=== PATIENT | female | born 1955 | race Caucasian/White ===

== ENCOUNTER → 2019-10-15 | Outpatient (CLI) | payer SELFPAY | PROVIDERS: Family Provider Family Medicine; Visit Provider Family Medicine | DX: S60.222S Contusion of left hand, sequela (principal); S62.64 Nondisplaced fracture of proximal phalanx of finger; R60.9 Edema, unspecified; S62.002S Unspecified fracture of navicular [scaphoid] bone of left wrist, sequela; X58.XXXS Exposure to other specified factors, sequela | CPT/HCPCS: 73218 ==

== ENCOUNTER → 2019-11-12 16:12 | Outpatient (BNVA) | payer MEDICAID, SELFPAY | PROVIDERS: Family Provider Family Medicine; PCP Family Medicine; Visit Provider Family Medicine | DX: N28.9 Disorder of kidney and ureter, unspecified (principal) | CPT/HCPCS: 80048 ==

== ENCOUNTER → 2019-11-18 16:14 | Outpatient (BNVA) | payer MEDICAID, SELFPAY | PROVIDERS: Family Provider Family Medicine; PCP Family Medicine; Referring Provider Family Medicine; Visit Provider Orthopaedic Surgery | DX: S62.611A Displaced fracture of proximal phalanx of left index finger, initial encounter for closed fracture (principal); X58.XXXA Exposure to other specified factors, initial encounter | CPT/HCPCS: 73130 ==

== ENCOUNTER → 2020-01-21 11:33 | Outpatient (BNVA) | payer MEDICAID, SELFPAY | PROVIDERS: Family Provider Family Medicine; PCP Family Medicine; Referring Provider Licensed Practical Nurse; Visit Provider Psychiatry & Neurology Neurology | DX: M54.17 Radiculopathy, lumbosacral region (principal) | CPT/HCPCS: 95886; 95909 ==

== ENCOUNTER → 2020-01-29 16:00 | Outpatient (BNVA) | payer MEDICAID, SELFPAY | PROVIDERS: Family Provider Family Medicine; PCP Family Medicine; Visit Provider Family Medicine | DX: N39.3 Stress incontinence (female) (male) (principal); R30.0 Dysuria; M54.16 Radiculopathy, lumbar region | CPT/HCPCS: 80053; 81000 ==

== ENCOUNTER → 2020-03-24 11:22 | Outpatient (BNVA) | payer MEDICAID, SELFPAY | PROVIDERS: Family Provider Family Medicine; PCP Family Medicine; Visit Provider Family Medicine | DX: I10 Essential (primary) hypertension (principal); E55.9 Vitamin D deficiency, unspecified; E53.8 Deficiency of other specified B group vitamins; F17.219 Nicotine dependence, cigarettes, with unspecified nicotine-induced disorders; K04.7 Periapical abscess without sinus; R11.0 Nausea; M54.5 Low back pain | CPT/HCPCS: 80053; 80061; 82044; 82306; 82607; 85025 ==

== ENCOUNTER 2020-04-16 08:17 | Outpatient (CLI) | payer MEDICAID, SELFPAY ==
--- NOTE | 2020-04-16 08:26 | IR_ITS ---
WS: [id number] LUMBAR MYELOGRAM HISTORY: Low back pain COMPARISON: 12/14/2018 FLUOROSCOPY TIME: 0.8 minutes. Procedure, risks and complications were explained to the patient. Risks including bleeding, infection , headaches, allergic reaction and seizures. Consent has been obtained. With the patient in prone position the skin over the lumbar region is cleansed with ChloraPrep and an esthetized with lidocaine. 22-gauge spinal needle is inserted into the thecal sac at the appropriate level determined by fluoroscopy. Omnipaque 240; 12 ml is injected slowly under fluoroscopy with no co mplications. Needle bevel is perpendicular to the longitudinal fibers of the dura. Stylet is reinsert ed prior to removal of the needle. Patient tolerated the procedure well. Patient will proceed to CT f or further evaluation. Uncomplicated injection into the thecal sac. There is an abrupt cut off of the contrast at the L4-5 d isc level. This is the level of L4 anterolisthesis by 12.7 mm. Thecal sac is sharply oriented due to the anterolisthesis. Small amount of contrast extends into the RIGHT nerve roots. Mild anterior wedging L2. Severe disc space narrowing at L4-5. L4 anterolisthesis by 12.7 mm on neutral imaging. Increases to 15.5 mm on flexion and 14.8 mm on exte nsion. 5 mm anterolisthesis of L5 with no change during flexion or extension. Heavy calcification within the aorta. IR/[place] myelogram sp lumbar [id number] IMPRESSION: 1. Uncomplicated lumbar myelogram. 2. Grade 2 anterolisthesis of L4 with mild instability during flexion and exte nsion. 3. Severe disc space narrowing at L4-5. 4. Remote appearing L2 compression fracture by 10%. 5. Contrast column is abruptly terminated at the L4-5 disc level due to the an terolisthesis and stenosis.
--- NOTE | 2020-04-16 08:26 | CT_ITS ---
WS: [id number] CT MYELOGRAM LUMBAR SPINE HISTORY: Low back pain TECHNIQUE: Contiguous 2.5 mm axial imaging performed from T12 through the mid sacral level. Bone and soft tissue windows reviewed. Sagittal and coronal reformats are submitted and reviewed. DLP: 1467.[address] scans at [facility] use at least one of these dose optimization techniques: automat ed exposure control; mA and/or kV adjustment per patient size (includes targeted exams where dose is matched to clinical indication); or iterative reconstruction. COMPARISON: None available. Good distention of the thecal sac with contrast. L2 compression fracture by 15% without retropulsion. L4 anterolisthesis by 12 mm with severe disc space narrowing and desiccation at L4-5 and moderate at L5-S1. L5 anterolisthesis by 4 mm. L1-L2: Mild annular disc bulging. No stenosis. L2-L3: Mild annular disc bulging with slight effacement of the ventral thecal sac. No stenosis. L3-L4: Moderate annular disc bulging and osteophytic ridging. Ligamentum flavum hypertrophy and facet arthritis. Very mild central and subarticular recess stenosis. No significant foraminal stenosis. L4-L5: Severe central canal stenosis. There is unroofing of the disc and posterior displacement of th e thecal sac with the contrast column being incompletely obliterated. Subarticular recess, lateral re cess and bilateral foraminal stenosis is severe. L5-S1: Central disc broad-based bulging. Mild central and subarticular recess and foraminal stenosis. Moderate calcification within the abdominal aorta. No aneurysm. CT/CT lumbar spine w con [id number] IMPRESSION: 1. Grade 2 anterolisthesis of L4 without pars defects. 2. Severe central, subarticular lateral recess and foraminal stenosis at L4-5 due to combination of the anterolisthesis and facet arthritis. 3. Mild central, subarticular recess and foraminal stenosis at L5-S1. 4. Severe disc desiccation at L4-5 and moderate at L5-S1. 5. L5 anterolisthesis by 4 mm. 6. Mild central and subarticular recess stenosis at L3-4. 7. Remote L2 compression fracture, 15%.
[2020-04-16] MEDS: iohexol 240 mg/mL 50 mL Btl INTRATHECA (09:53)
== END 2020-04-16 08:18 | disposition home or self-care (01) ==
PROVIDERS: Family Provider Family Medicine; PCP Family Medicine; Visit Provider Licensed Practical Nurse
DX: Z98.1 Arthrodesis status (principal); M48.56XA Collapsed vertebra, not elsewhere classified, lumbar region, initial encounter for fracture; M48.061 Spinal stenosis, lumbar region without neurogenic claudication
CPT/HCPCS: 62304; 72120; 72132; Q9966

== ENCOUNTER 2020-04-27 15:08 | Outpatient (CLI) | payer MEDICAID, SELFPAY ==
--- NOTE | 2020-04-27 15:30 | CT_ITS ---
WS: [id number] CT cervical spine. Additional two-dimensional coronal and sagittal reconstruction was performed. 04/27 Clinical Data: HX Fusion/fixation Comparison: Cervical spine, 08/23/2018 DLP: 1183.[address] scans at [facility] use at least one of these dose optimization techniques: automat ed exposure control; mA and/or kV adjustment per patient size (includes targeted exams where dose is matched to clinical indication); or iterative reconstruction. Findings: There is osteoarthritic change of the vertebral bodies C4-C7. There is a 0.3 cm subluxation of C4 on C5. There is degenerative disc narrowing at C4-C5, C5-C6 and C6-C7. No compression fractures are seen . The odontoid is normal. There is no prevertebral soft tissue swelling. There is calcification in th e pino of the carotid arteries of the neck. C2-C3: No disc bulge, canal stenosis or foraminal stenosis is seen. There is mild posterior osteophyt e spurring. C3-C4: No disc bulge, canal stenosis or foraminal stenosis is seen. Facet joint arthritis is noted. C4-C5: There is narrowing of the spinal canal because of the subluxation of C4 on C5. There is ligame ntum flavum calcification. Facet joint arthritis is moderate C5-C6: There is posterior osteophyte impingement on the spinal canal with mild stenosis with the bila teral facet joint arthritis. C6-C7: There is posterior osteophyte narrowing which is minimal. There is bilateral facet joint arthr itis. C7-T1: No disc bulge, canal stenosis or foraminal stenosis is seen. CT/CT cervical spine w con [id number] Impression: 1. Osteoarthritic change of the lower cervical vertebral bodies from C4 through C7. 2. Degenerative disc narrowing from C4-C5 through C6-C7. 3. Multilevel posterior osteophyte formation along with facet joint arthritis. 4. 0.3 subluxation of C4 on C5 unchanged.
[2020-04-27] MEDS: iodixanol 320 mg/mL 100mL Btl IV (15:44)
== END 2020-04-27 15:09 | disposition home or self-care (01) ==
PROVIDERS: Family Provider Family Medicine; PCP Family Medicine; Visit Provider Licensed Practical Nurse
DX: Z98.1 Arthrodesis status (principal); M25.78 Osteophyte, vertebrae; M43.5X2 Other recurrent vertebral dislocation, cervical region
CPT/HCPCS: 72126; Q9967

== ENCOUNTER → 2020-05-14 12:43 | Outpatient (BNVA) | payer MEDICAID, SELFPAY | PROVIDERS: Family Provider Family Medicine; PCP Family Medicine; Referring Provider Licensed Practical Nurse; Visit Provider Anesthesiology Pain Medicine | DX: M51.17 Intervertebral disc disorders with radiculopathy, lumbosacral region (principal); M43.16 Spondylolisthesis, lumbar region; M48.062 Spinal stenosis, lumbar region with neurogenic claudication; Z98.890 Other specified postprocedural states; Z79.891 Long term (current) use of opiate analgesic | CPT/HCPCS: 99205 ==

== ENCOUNTER → 2020-05-19 14:22 | Outpatient (BNVA) | payer MEDICAID, SELFPAY | PROVIDERS: Family Provider Family Medicine; PCP Family Medicine; Visit Provider Anesthesiology Pain Medicine | DX: M54.16 Radiculopathy, lumbar region (principal); M48.062 Spinal stenosis, lumbar region with neurogenic claudication; F17.210 Nicotine dependence, cigarettes, uncomplicated | CPT/HCPCS: 64483; 64484; J1040; J3490 ==

== ENCOUNTER → 2020-06-02 12:58 | Outpatient (BNVA) | payer MEDICAID, SELFPAY | PROVIDERS: Family Provider Family Medicine; PCP Family Medicine; Visit Provider Anesthesiology Pain Medicine | DX: M54.16 Radiculopathy, lumbar region (principal); M48.062 Spinal stenosis, lumbar region with neurogenic claudication; M54.9 Dorsalgia, unspecified; F17.210 Nicotine dependence, cigarettes, uncomplicated; Z79.891 Long term (current) use of opiate analgesic | CPT/HCPCS: 64483; 64484; J1040; J3490 ==

== ENCOUNTER → 2020-06-15 10:23 | Outpatient (BNVA) | payer MEDICAID, SELFPAY | PROVIDERS: Family Provider Family Medicine; PCP Family Medicine; Visit Provider Anesthesiology Pain Medicine | DX: M43.16 Spondylolisthesis, lumbar region (principal); M48.062 Spinal stenosis, lumbar region with neurogenic claudication; M51.17 Intervertebral disc disorders with radiculopathy, lumbosacral region; M79.18 Myalgia, other site; F17.210 Nicotine dependence, cigarettes, uncomplicated; M54.2 Cervicalgia; Z98.890 Other specified postprocedural states; Z79.891 Long term (current) use of opiate analgesic | CPT/HCPCS: 20553; 99213 ==

== ENCOUNTER 2020-06-24 19:35 | Emergency (ER) | payer MEDICARE, MEDICAID, SELFPAY ==
[2020-06-24 20:18] VITALS: BP 149/69; PULSE 65; RESP 18; TEMP 36.7; O2SAT 93; BMI 21.2
--- NOTE | 2020-06-24 20:28 | XR_ITS ---
WS: [id number] Right knee, 3 views, 06/24/2020 Clinical Data: fall Comparison: None. Findings: No fractures or dislocations are seen. The joint spaces are narrow. There is cartilage calcification in the medial and lateral joint spaces. The patella is intact. The soft tissues are unremarkable. XR/XR knee RT 3V* [id number] Impression: 1. Negative for fracture or dislocation. 2. Medial and lateral joint space cartilage calcification.
--- NOTE | 2020-06-24 20:28 | CTR_ITS ---
PROCEDURE INFORMATION: Exam: CT Head Without Contrast Exam date and time: 06/24/2020 8:29 PM Age: 64 years old Clinical indication: Injury or trauma; Fall; Prior surgery; Surgery type: Tmj TECHNIQUE: Imaging protocol: Computed tomography of the head without contrast. Radiation optimization: All CT scans at this facility use at least one of these dose optimization techniques: automated exposure control; mA and/or kV adjustment per patient size (includes targeted exams where dose is matched to clinical indication); or iterative reconstruction. COMPARISON: No relevant prior studies available. RADIATION DOSE METRICS: Total DLP (mGy-cm): 864.26 FINDINGS: Brain: Small chronic cortical infarcts in the bilateral parietal vertices. Mild generalized sulcal widening and ventricular enlargement are age related changes due to white matter volume loss. Localized microangiopathy versus chronic infarct in the left frontoparietal barrios radiata. Ventricles: Mild age related enlargement. Bones/joints: Chronic degenerative changes in both temporomandibular joints. Sinuses: Trace mucosal thickening in the paranasal sinuses. Mastoid air cells: Visualized mastoid air cells are well aerated. Soft tissues: Unremarkable. CT/CT head wo con* [id number] IMPRESSION: 1. No acute intracranial findings. 2. Bilateral small chronic cortical white matter infarcts 3. Sulcal widening Radiation Dose CTDIVOL = (mGy): DLP = 864.26 (mGy-cm)
--- NOTE | 2020-06-24 20:28 | XR_ITS ---
WS: [id number] Right wrist, 3 views, 06/24/2020 Clinical Data: fall Comparison: None. Findings: There is a comminuted impacted slightly dorsally displaced fracture of the distal right radius. The d istal ulna remains intact. No carpal fractures are seen. There is soft tissue swelling about the dist al right radius. XR/XR wrist RT min 3V* [id number] Impression: Fracture distal right radius.
--- NOTE | 2020-06-24 21:15 | W.ED.FALL ---
HPI - Fall General: Chief Complaint: Fall Stated Complaint: fall/right side Time Seen by Provider: 06/24/20 21:03 History of Present Illness: HPI Narrative: 64-year-old female patient presents to the emergency department with complaints of right wrist, right knee pain status post fall she experienced earlier today. She reports fell at the [employer]. She reports history of chronic back pain with difficulty with balance that is chronic. She reports lost her balance today which caused a fall, she reports fell back and hit her head. She did not lose consciousness, she denies nausea vomiting. She reports headache with numbness to her head. She reports difficulty walking due to right knee pain. Her spouse reports she has utilized wheelchair at home due to right knee pain, normally ambulatory. She reports pain to the right wrist with swelling, limited mobility due to pain. Associated symptoms-after fall: Reports neck pain; Denies abdominal pain, chest pain or headache(s) Review of Systems General: Reports: 10 or more systems reviewed and unremarkable except in HPI and below Const: Denies: fever(s), chills or diaphoresis Eyes: Denies: blurry vision or eye redness ENMT: Denies: throat pain, dental pain or disequilibrium Card: Denies: chest pain, palpitations or irregular heart rhythm Resp: Denies: dyspnea, productive cough, non-productive cough or wheezing GI: Denies: abdominal pain, nausea or vomiting : Denies: difficulty voiding or dysuria Musc: Reports: neck pain and joint pain (right wrist, right knee); Denies: back pain Skin/Breast: Denies: rash or pruritus Neuro: Denies: headache(s), weakness in extremities or behavioral changes Stanley/Lymph: Denies: easy bruising PFSH ED PFSH: Medical History (Updated 06/24/20 @ 23:17 by RIKA Ambriz) Chronic nausea COPD (chronic obstructive pulmonary disease) Essential hypertension GERD (gastroesophageal reflux disease) History of TMJ disorder Left sided surgery Intervertebral disc disorder with radiculopathy of lumbosacral region Joint instability Spinal stenosis, lumbar region with neurogenic claudication Spondylolisthesis of lumbar region Surgical History History of cervical spinal surgery 1996 C5-C6 fusion [place], [place] History of hysterectomy History of mitral valve replacement with bioprosthetic valve History of open heart surgery Open heart surgery with valve replacement, performed in [place], [place] by Dr. Taylor, 2015 History of tonsillectomy History of tubal ligation Family History Other No pertinent family history Social History Smoking and tobacco status: current every day smoker cigarettes Packs smoked per day: 0.5 Alcohol intake: current Household members: family Marital status: Current occupational status: disabled History of recent travel: No Physical Exam Const: COMMON NORMALS: no acute distress, patient oriented x3 and alert GENERAL APPEARANCE: cooperative, comfortable and well hydrated NUTRITIONAL APPEARANCE: thin ORIENTATION/CONSCIOUSNESS: Yes awake, Yes oriented to person and Yes oriented to place HENMT: COMMON NORMALS: normocephalic, Normal external nose present and moist oral mucous membranes HEAD & SCALP: normocephalic NOSE: Normal external nose present Eye: COMMON NORMALS: Equal, round and reactive pupils present and EOMs intact bilaterally GENERAL EYE: appearance normal, both eyes and all related structures PUPIL: Yes Equal, round and reactive pupils present Neck/C-Spine: COMMON NORMALS: full ROM and no lymphadenopathy GENERAL: Yes normal visual inspection and Yes trachea midline CERVICAL SPINE: Yes pain with cervical ROM, Yes Cervical spine tenderness and Yes Paracervical muscle tenderness Lymph: LYMPHATIC: no lymphadenopathy noted Chest: COMMONS NORMALS: normal inspection of the chest Resp: COMMON NORMALS: normal respiratory effort and clear to auscultation bilaterally AUSCULTATION: clear to auscultation bilaterally Cardio: COMMON NORMALS: regular rhythm, S1 normal heart sound present, S2 normal heart sound present and Peripheral pulses 2+ throughout RHYTHM: regular rhythm HEART SOUNDS: S1 normal heart sound present and S2 normal heart sound present PERIPHERAL PULSES: Peripheral pulses 2+ throughout GI: COMMON NORMALS: Soft to palpation and non-tender INSPECTION: Yes normal to inspection PALPATION: Yes Soft to palpation : COMMON NORMALS: Yes no CVA tenderness BLADDER/KIDNEY EXAM: Yes no CVA tenderness Back/Pelvis: COMMON NORMALS: no CVA tenderness, thoracic and lumbar spine normal to inspection and thoraco-lumbar ROM normal PELVIS: Yes buttocks normal SACRUM: no ecchymosis and no erythema Extremity: COMMON NORMALS: normal to inspection and capillary refill normal GENERAL: Yes normal exam except as noted RIGHT UPPER EXTREMITY: Yes wrist (right wrist - deformity noted c/w fracture) Right wrist: Yes inspection (ecchymosis present) and Yes ROM (limited due to pain) RIGHT LOWER EXTREMITY: Yes knee joint (swelling with ecchymosis ) Right knee: Yes ROM (limited due to pain) Neuro: COMMON NORMALS: patient oriented x3 and no focal motor deficits SENSORIUM/ORIENTATION: Yes alert, Yes oriented to person and Yes oriented to place CRANIAL NERVES: Yes CN normal except as noted SPEECH: speech normal GAIT: Yes Unable to assess gait (due to pain) Psych: COMMON NORMALS: mental status grossly normal, Normal thought process present and cooperative ACTIVITY/MOTOR BEHAVIOR: Yes appropriate eye contact THOUGHT PROCESS: Normal thought process present Skin: COMMON NORMALS: no rashes or lesions noted and turgor normal GENERAL SKIN EXAM: no rashes or lesions noted and turgor normal Course ED course: 64-year-old female patient presents to the emergency department with complaints of right wrist pain right knee pain and neck pain status post fall she sustained earlier today. CT scan of the head did not reveal acute disease/injury. CT scan of the cervical spine did not reveal acute fracture. X-ray of the right wrist revealed radial fracture questionable scaphoid fracture. X-rays were reviewed with Dr. Sosa. Right upper extremity sugar tong splint was applied, distal circulation intact post application. Right knee CT negative for acute fracture, questioned tibial plateau fracture as patient could not stand without pain. Results were discussed with the patient and her spouse. Questions were answered, plan of care discussed. They agree for follow-up with orthopedic surgery. Vital Signs: Vital signs: Vital Signs Temperature 98.0 F 06/24/20 20:18 Pulse Rate 66 06/24/20 22:58 Respiratory Rate 14 06/24/20 22:58 Blood Pressure 173/69 06/24/20 22:58 Pulse Oximetry 97 06/24/20 22:58 MDM - Fall Imaging Data^: CT Head: Radiologist's impression: [facility] [address] [facility] [place] [address] CT Scan Report Signed Patient: Felipa Winslow #: [id number] : 5Acct#:[id number] Age/Sex: 64 / FADM Date: 06/24/20 Loc: ERRoom/Bed: Attending Dr: Ordering Provider/Ordering MD: Phillip Sosa MD Date of Service: 06/24/20 Procedure(s): CT head wo con* [id number] Accession Number(s): [id number] Report Number: [id number] PROCEDURE INFORMATION: Exam: CT Head Without Contrast Exam date and time: 06/24/2020 8:29 PM Age: 64 years old Clinical indication: Injury or trauma; Fall; Prior surgery; Surgery type: Tmj TECHNIQUE: Imaging protocol: Computed tomography of the head without contrast. Radiation optimization: All CT scans at this facility use at least one of these dose optimization techniques: automated exposure control; mA and/or kV adjustment per patient size (includes targeted exams where dose is matched to clinical indication); or iterative reconstruction. COMPARISON: No relevant prior studies available. RADIATION DOSE METRICS: Total DLP (mGy-cm): 864.26 FINDINGS: Brain: Small chronic cortical infarcts in the bilateral parietal vertices. Mild generalized sulcal widening and ventricular enlargement are age related changes due to white matter volume loss. Localized microangiopathy versus chronic infarct in the left frontoparietal barrios radiata. Ventricles: Mild age related enlargement. Bones/joints: Chronic degenerative changes in both temporomandibular joints. Sinuses: Trace mucosal thickening in the paranasal sinuses. Mastoid air cells: Visualized mastoid air cells are well aerated. Soft tissues: Unremarkable. CT/CT head wo con* [id number] IMPRESSION: 1. No acute intracranial findings. 2. Bilateral small chronic cortical white matter infarcts 3. Sulcal widening Radiation Dose CTDIVOL = (mGy): DLP = 864.26 (mGy-cm) Dictated By:Romeo Ayala MD Signed By:Romeo Ayala MD Other CT: Radiologist's impression: [place] [address] CT Scan Report Signed Patient: Felipa Winslow Unit #: [id number] : 1955 Age/Sex: 64 / F ADM Date: 06/24/20 Loc: ER Room/Bed: Attending Dr: Ordering Provider/Ordering MD: Jolynn Dai Date of Service: 06/24/20 Procedure(s): CT cervical spin wo con* [id number] Accession Number(s): [id number] Report Number: [id number] PROCEDURE INFORMATION: Exam: CT Cervical Spine Without Contrast Exam date and time: 06/24/2020 9:19 PM Age: 64 years old Clinical indication: Injury or trauma; Fall; Initial encounter; Blunt trauma; Additional info: Cervical spine pain S/P fall - midline TECHNIQUE: Imaging protocol: Computed tomography images of the cervical spine without contrast. Radiation optimization: All CT scans at this facility use at least one of these dose optimization techniques: automated exposure control; mA and/or kV adjustment per patient size (includes targeted exams where dose is matched to clinical indication); or iterative reconstruction. COMPARISON: CT cervical spine w con [id number] 04/27/2020 3:38 PM RADIATION DOSE METRICS: Total DLP (mGy-cm): 373.79 FINDINGS: Vertebrae: Multiple chronic degenerative changes are again noted including numerous disc spur complexes as well as grade 1 subluxation at C4-C5. The central canal is mildly stenotic at the C2-C3 level. Discs/Spinal canal/Neural foramina: See Vertebrae finding. Prevertebral Space: Since April 2020 overall there has been no significant change. There is no fracture or prevertebral swelling. Soft tissues: Unremarkable. Dental: The patient is nearly edentulous. Lungs: Scarring in the lung apices. CT/CT cervical spin wo con* [id number] IMPRESSION: 1. No acute cervical spine findings. 2. Extensive chronic degenerative changes including grade 1 subluxation at C4-C5 . No high-grade stenosis Radiation Dose CTDIVOL = (mGy): DLP = 373.79 (mGy-cm) Dictated By: Romeo Ayala MD Signed By: Romeo Ayala MD Signed Date/Time: 06/24/202143 DD/ 42 Discharge Plan Discharge Patient Disposition: Home Clinical Impression: Fracture of radius Qualifiers: Encounter type: initial encounter Radius location: head Fracture type: closed Fracture alignment: nondisplaced Laterality: right Qualified Code(s): S52.124A - Nondisplaced fracture of head of right radius, initial encounter for closed fracture Fall Qualifiers: Encounter type: initial encounter Qualified Code(s): W19.XXXA - Unspecified fall, initial encounter Contusion of knee Qualifiers: Encounter type: initial encounter Laterality: right Qualified Code(s): S80.01XA - Contusion of right knee, initial encounter Condition: Stable Prescriptions: New hydrocodone-acetaminophen 5-325 mg tablet 1 tab PO Q4H PRN (Reason: pain) Qty: 14 RF: 0 No Action metoprolol tartrate 50 mg tablet 50 mg PO BID Qty: 60 RF: 6 azelastine 137 mcg (0.1 %) aerosol,spray 2 spray INTRANASAL BID RF: 0 acetaminophen 500 mg tablet 500 - 1,000 mg PO TID PRN (Reason: Pain) RF: 0 melatonin 5 mg capsule 5 mg PO BEDTIME PRN (Reason: Sleep) RF: 0 gabapentin 600 mg tablet 600 mg PO TID Qty: 90 RF: 0 tramadol 50 mg tablet 50 mg PO TID PRN (Reason: pain) Qty: 90 RF: 0 cetirizine [Zyrtec] 10 mg tablet 10 mg PO DAILY Qty: 30 RF: 0 cyanocobalamin (vitamin B-12) 1,000 mcg/mL solution 1,000 mcg IM .ONCE MONTHLY 7 Days Qty: 1 RF: 5 fluticasone propionate [Flonase Allergy Relief] 50 mcg/actuation spray,suspension 1 spray INTRANASAL DAILY Qty: 16 RF: 4 atorvastatin 20 mg tablet 20 mg PO DAILY Qty: 6 RF: 0 Latuda 40 mg tablet 40 mg PO QDAY Qty: 30 RF: 0 albuterol sulfate [ProAir HFA] 90 mcg/actuation HFA aerosol inhaler 2 puff INHALATION BID PRN (Reason: shortness of breath or wheezing) Qty: 18 RF: 3 cyclobenzaprine 10 mg tablet 10 mg PO Q8H PRN (Reason: muscle spasm) Qty: 90 RF: 2 promethazine 25 mg tablet 25 mg PO DAILY PRN (Reason: nausea and vomiting) Qty: 30 RF: 2 citalopram 20 mg tablet 20 mg PO DAILY RF: 0 pantoprazole 40 mg tablet,delayed release (DR/EC) 40 mg PO DAILY RF: 0 montelukast 10 mg tablet 10 mg PO DAILY RF: 0 buspirone 15 mg tablet 15 mg PO DAILY RF: 0 Discharge Orders: Discharge Order (Routine); Ordered 06/24/20 Ordered By: Jolynn Dai Referrals: Debra Monet DO [Primary Care Provider] - Discharge Diet: Advance as tolerated Discharge Activity: Limit activity as instructed Patient Instructions: Wrist Fracture in Adults (ED), Splint Care (ED), Knee Pain (ED), Fall Prevention (ED) Activity Restrictions/Additional Instructions: Follow-up with Dr. Gallagher, orthopedic surgeon for fracture care Keep the splint on until removed by Dr. Gallagher, you may loosen the Santiago wrap if needed if becomes too tight Keep the right upper extremity elevated as this will help decrease swelling and pain Take hydrocodone only as needed, medication can be addictive Coding Level of Care Code ED Cooker Operator for [facility] Fwd Exam Comprehensive
[2020-06-24 21:48] VITALS: BP 150/74; PULSE 67; RESP 14; O2SAT 98
[2020-06-24] MEDS: acetaminophen 325 mg Tablet 650 MG PO (21:48)
[2020-06-24] MEDS: HYDROcodone-acetaminophen 5-325 mg Tablet 1 TAB PO (21:55)
--- NOTE | 2020-06-24 22:00 | CTR_ITS ---
PROCEDURE INFORMATION: Exam: CT Right Lower Extremity Without Contrast, Knee Exam date and time: 06/24/2020 10:04 PM Age: 64 years old Clinical indication: Injury or trauma; Fall; Initial encounter; Blunt trauma; Knee; Right; Additional info: Right knee - R/O tp FX S/P fall, cant bear weight TECHNIQUE: Imaging protocol: CT of the Right lower extremity without contrast was performed. Exam focused on the knee. Radiation optimization: All CT scans at this facility use at least one of these dose optimization techniques: automated exposure control; mA and/or kV adjustment per patient size (includes targeted exams where dose is matched to clinical indication); or iterative reconstruction. COMPARISON: CR XR knee RT 3V* [id number] 06/24/2020 9:09 PM RADIATION DOSE METRICS: Total DLP (mGy-cm): 104.75 FINDINGS: Bones/joints: Chondrocalcinosis in the medial and lateral compartments. No fracture or joint effusion. Degenerative subchondral cysts are noted in the lateral tibial plateau. Soft tissues: Normal. CT/CT knee RT wo con* [id number] IMPRESSION: 1. No acute findings. 2. Chondrocalcinosis and chronic degenerative changes, especially in the lateral tibial plateau Radiation Dose CTDIVOL = (mGy): DLP = 104.75 (mGy-cm)
[2020-06-24 22:42] VITALS: BP 191/91; PULSE 65; RESP 14; O2SAT 96
[2020-06-24 22:58] VITALS: BP 173/69; PULSE 66; RESP 14; O2SAT 97
[2020-06-24 23:55] VITALS: BP 118/66; PULSE 65; RESP 18; TEMP 37.2; O2SAT 97
--- NOTE | 2020-06-25 09:31 | DCPLANNER ---
poker room manager had message to schedule a follow up appointment for patient with ortho. poker room manager spoke with Pat at ortho, gave clinic patients information. poker room manager was told that patients information would be printed and reviewed. Clinic will call patient with appointment information.
--- NOTE | 2020-06-26 07:34 | DCPLANNER ---
Patient has a follow appointment scheduled for Monday, July 01, 2020 at 10:[address] Rome. Clinic will call patient with appointment information.
--- NOTE | 2020-07-13 08:35 | DCPLANNER ---
Patient had follow up appointment scheduled for 07.01.20 with ortho - patient did attend appointment.
== END 2020-06-25 00:02 | disposition home or self-care (01) ==
PROVIDERS: Emergency Provider Nurse Practitioner Family; PCP Family Medicine
DX: S52.124A Nondisplaced fracture of head of right radius, initial encounter for closed fracture (principal); S80.01XA Contusion of right knee, initial encounter; F17.210 Nicotine dependence, cigarettes, uncomplicated; J44.9 Chronic obstructive pulmonary disease, unspecified; I10 Essential (primary) hypertension; W19.XXXA Unspecified fall, initial encounter
CPT/HCPCS: 12345; 29125; 70450; 72125; 73110; 73562; 73700; 99281; 99283

== ENCOUNTER → 2020-07-01 11:38 | Outpatient (BNVA) | payer MEDICARE, MEDICAID, SELFPAY | PROVIDERS: PCP Family Medicine; Referring Provider Emergency Medicine; Visit Provider Specialist | DX: S52.124A Nondisplaced fracture of head of right radius, initial encounter for closed fracture (principal); Z20.828 Contact with and (suspected) exposure to other viral communicable diseases; X58.XXXA Exposure to other specified factors, initial encounter | CPT/HCPCS: 73110; 87635 ==

== ENCOUNTER 2020-07-03 13:13 | Day surgery (SDC) | payer MEDICARE, MEDICAID, SELFPAY ==
[2020-07-02 13:52] VITALS: BMI 22.1
--- NOTE | 2020-07-03 | SCC_ITS ---
Procedure Done: Open reduction internal fixation right distal radius displaced fracture utilizing the Zuleima short narrow distal radius plate 66.1 seconds of fluoroscopic guidance, for a cumulative dose of 0.37 mGy, was provided to Dr. Rome by the radiology department. C-arm images of the RIGHT wrist were saved for the patient's permanent record. THOMAS
--- NOTE | 2020-07-03 | XR_ITS ---
WS: [id number] INTRAOPERATIVE TECHNIQUE: 3 Spot fluoroscopic images for intraoperative purposes. FLUOROSCOPY TIME: 66.1 seconds CLINICAL INFORMATION: OR PICS COMPARISON: None. FINDINGS: Intraoperative changes plate and screw fixation distal radius. Normal alignment. XR/XR wrist RT 2V [id number] IMPRESSION: Images obtained for intraoperative purposes.
[2020-07-03 13:40] VITALS: BP 136/67; PULSE 62; RESP 18; TEMP 36.9; O2SAT 97
[2020-07-03] MEDS: CELEcoxib 200 mg Capsule 400 MG PO (13:56)
[2020-07-03] MEDS: sodium chloride 0.9% 1,000 ML 30 ML IV (13:56)
[2020-07-03 13:59] LABS: Basophils # 0.1 10^3/uL (0.0-0.1); Basophils % 0.8 %; Eosinophils # 0.1 10^3/uL (0.0-0.8); Eosinophils % 0.9 %; Hematocrit 36.8 % (37.0-47.0); Hemoglobin 11.6 g/dL (11.5-15.3); Lymphocytes # 1.8 10^3/uL (0.8-4.8); Lymphocytes % 18.7 %; Mean Corpuscular HGB Conc 31.5 g/dL (30.0-36.0); Mean Corpuscular Hemoglobin 31.3 pg (28.0-34.0); Mean Corpuscular Volume 99.2 fL (81-99); Mean Platelet Volume 9.4 fL (7.4-10.4); Monocytes # 0.7 10^3/uL (0.2-0.9); Neutrophils # 6.95 10^3/uL (1.8-7.7); Neutrophils % 72.2 %; Nucleated Red Blood Cells % 0 %; Platelet Count 356 10^3/cmm (130-400); Red Blood Count 3.71 10^6/uL (4.1-5.3); Red Cell Distribution Width 14.2 % (12.1-15.1); White Blood Count 9.6 10^3/uL (4.0-10.0)
--- NOTE | 2020-07-03 14:07 | P.ANESASSM_ITS ---
Pre-Anesthetic Assessment Pre-Anesthetic Assessment: Height/Weight: Height 1.6 m Weight 56.699 kg Temp Pulse Resp BP Pulse Ox 98.4 F 62 18 136/67 97 07/03/20 13:40 07/03/20 13:40 07/03/20 13:40 07/03/20 13:40 07/03/20 13:40 Preop Diagnosis: Right distal radius fracture intra-articular Proposed Procedure: Operation Date: 07/03/20 15:25 Proposed Procedures p ORIF Wrist 18720 S52.501A(Right) - Lidia Rome MD Familial anesthetic complications: None Was Beta Isa taken within 24 hours: N/A Last intake: Intake Last Liquid Date 07/02/20 Last Liquid Time 18:30 Last Solid Date 07/02/20 Last Solid Time 18:30 Social: Social History: Tobacco Exam: Pre-Anes Outpt Exam: alert, oriented x 3, clear to auscultation bilaterally and regular rate & rhythm Airway: Cervical ROM: WNL (C5-6 surgery) MP: 2 Dentition: Full Pulmonary: Pulmonary: COPD CV/HEM: CV/HEM: HTN Comments: heart valve replacement (mitral valve) GI: GI: GERD Metabolic: Metabolic: Hyperlipidemia Neuropsych: Neuropsych: 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) Anesthetic Plan: ASA status: 3 Anesthesia: General and Regional (specify below) Risk of > 500 ml blood loss (7ml/kg in children): No Meds/Allergies Current Medications: Current Medications Generic Name Dose Route Start Last Admin Trade Name Freq PRN Reason Stop Dose Admin Sodium Chloride 1,000 mls @ 30 ml s/hr 07/03/20 13:30 07/03/20 13:56 Sodium Chloride 0.9% IV 07/04/20 13:29 30 mls/hr .Q24H CANDICE Administration PFSH Anesthesia PFSH: Medical History (Updated 07/03/20 @ 00:07 by ) Chronic nausea COPD (chronic obstructive pulmonary disease) Essential hypertension GERD (gastroesophageal reflux disease) History of TMJ disorder Left sided surgery Intervertebral disc disorder with radiculopathy of lumbosacral region Joint instability Spinal stenosis, lumbar region with neurogenic claudication Spondylolisthesis of lumbar region Surgical History History of cervical spinal surgery 1996 C5-C6 fusion [place], [place] History of hysterectomy History of mitral valve replacement with bioprosthetic valve History of open heart surgery Open heart surgery with valve replacement, performed in [place], [place] by Dr. Harriet burns, 2015 History of tonsillectomy History of tubal ligation Family History Other No pertinent family history Social History Smoking and tobacco status: current every day smoker cigarettes Packs smoked per day: 0.5 Alcohol intake: current Household members: family Marital status: Current occupational status: disabled History of recent travel: No Data Anesthesia CBC & Chem 7: 07/03/20 13:50 07/03/20 13:50 Other Labs: Laboratory Results - last 48 hr 07/03/20 13:50 WBC 9.6 RBC 3.71 L Hgb 11.6 Hct 36.8 L MCV 99.2 H MCH 31.3 MCHC 31.5 RDW 14.2 Plt Count 356 MPV 9.4 Neut % (Auto) 72.2 Lymph % (Auto) 18.7 Piatt % (Auto) 7.0 Eos % (Auto) 0.9 Baso % (Auto) 0.8 Neut # (Auto) 6.95 Lymph # (Auto) 1.8 Piatt # (Auto) 0.7 Eos # (Auto) 0.1 Baso # (Auto) 0.1 Nucleated RBC % (auto) 0 Nucleated RBCs # 0.0 Cardiac Studies: No Data to Display
[2020-07-03 14:18] LABS: Anion Gap 15.3 (5-19); Blood Urea Nitrogen 25 mg/dL (8-23); Calcium 8.8 mg/dL (8.5-10.5); Carbon Dioxide 20 mmol/L (22-29); Chloride 108 mmol/L (98-107); Glucose 100 mg/dL (65-115); Osmolality Calculated 292 mOsm/kg (285-295); Potassium 4.3 mmol/L (3.5-5.1); Sodium 139 mmol/L (136-145)
--- NOTE | 2020-07-03 14:32 | ANES.PROC ---
Anesthesia Procedures Procedure/Date: 07/03/20 Nerve Block ^: Nerve Block 1: Main Anesthesia: general anesthesia Time Out Performed: Yes Consent: requested by attending/covering physician, from patient, risks and benefits reviewed and patient agrees to proceed Nerve block location: axillary (R) Anesthesia monitors applied: pulse oximetry, EKG, BP cuff and oxygen Nerve block position: supine Anesthetic Used: ropivicaine 0.5% and with decadron (4 mg) Amount of anesthesia used (mL): 30 Ultrasound used to: recognize landmarks and visualize and ID brachial plexus Nerve Stimulator Used?: No Interscalene/Femoral BLK: 2 stimuplex 22 g needle used for position and inplane approach, visualize local anesthetic spread and no vascular puncture identified Injection: neg aspiration of heme Patient Tolerated Procedure: well and no complications Complications: none
[2020-07-03] MEDS: midazolam 1 mg/mL INJ 5 ML 5 MG IVP (14:35)
--- NOTE | 2020-07-03 16:19 | W.PM.OPSUD ---
Surgery/Procedure H&P Update DATE OF PROCEDURE: July 03, 2020 DATE H&P PERFORMED: 07/01/20 H&P UPDATE INFORMATION: I have reviewed H&P completed within last 30 days, I have examined patient prior to procedure, No changes to prior documentation and H&P is in [facility] [place] on date indicated PREOP DIAGNOSIS: Right distal radius fracture intra-articular PLANNED PROCEDURE: Operation Date: 07/03/20 15:25 Proposed Procedures p ORIF Wrist 07909 S52.501A(Right) - Lidia Rome MD Related Problem List Diagnoses (1) Closed fracture of distal ends of right radius and ulna: Qualifiers: Encounter type: initial encounter Qualified Code(s): S52.501A - Unspecified fracture of the lower end of right radius, initial encounter for closed fracture; S52.601A - Unspecified fracture of lower end of right ulna, initial encounter for closed fracture
[2020-07-03 18:25] LABS: Add Urine Microscopic? NO
[2020-07-03 19:24] LABS: Bilirubin Urine Neg (Negative); Blood Urine Neg (Negative); Glucose Urine UA Norm (Normal); Ketones Urine Negative (Negative); Leukocyte Esterase Urine Negative (Negative); Nitrate Urine Negative (Negative); Protein Urine Neg (Negative); Urine Appearance Clear (CLEAR); Urine Color Yellow (Yellow); Urobilinogen Urine Norm (Negative); pH Urine 6 (5-7)
[2020-07-03] MEDS: vancomycin 1,000 MG in sodium chloride 0.9% 250 ML 250 MG IV (20:10)
[2020-07-03 21:31] VITALS: BP 119/91; PULSE 75; RESP 18; TEMP 36.9; O2SAT 100
[2020-07-03 21:35] VITALS: BP 137/90; PULSE 75; RESP 16; O2SAT 95
--- NOTE | 2020-07-03 21:35 | PM.OP ---
Operative Report Date of procedure: July 03, 2020 Pre-op Diagnosis: Right distal radius fracture intra-articular, displaced, new today and oste Post-op diagnosis: same Procedure Done: Open reduction internal fixation right distal radius displaced fracture utilizing the [place] short narrow distal radius plate Specimens removed/disposition: None Pathology: none sent Surgeon: Lidia Rome Strand Forming Machine Operator: [facility] OR technicians Anesthesia: General (General LMA, ASA 3) Estimated blood loss (mL): 5 Tourniquet time (min): 54 Tourniquet time: At 250 mmHg IV fluids (mL): 1,400 Urine output (mL): 0 Urine output: No Bower Complications: None Findings: Displaced impacted comminuted distal radius fracture Condition: stable Disposition: PACU (Then to preop for discharge to home) Brief History: This 64-year-old woman presented to my office with complaints of a right distal radius fracture. The fracture initially was in relatively good position, however, the patient had removed her splint, and it displaced posteriorly. Discussion was undertaken with the patient regarding the position of the fracture, and it was felt that she would benefit from open reduction internal fixation. Therefore, after discussion, this was scheduled for her. Procedure: Patient was brought to the operating theater, and after undergoing adequate general anesthesia preceded by an axillary block in the preop holding area, the patient's right upper extremity was prepped and draped in usual fashion utilizing DuraPrep. The patient had a tourniquet placed high on the arm prior to prepping and draping. Following prepping and draping, the arm was exsanguinated and the tourniquet was elevated. Total tourniquet time was 54 minutes at 250 mmHg. Prior to commencement of the surgical procedure, a surgical pause was performed. At the time of the surgical pause, we confirmed the site and side of surgery as well as the patient's identity and preoperative surgical markings. We also confirmed availability of equipment and appropriate preoperative IV antibiotics which was vancomycin 1 g. Fluoroscopy was also brought into position so that we could visualize the fracture and hardware throughout the surgical procedure. The fracture was evaluated prior to tourniquet placement. Following elevation of the tourniquet as well as the surgical pause, an incision was made along the palmaris longus and continued down onto the volar surface of the radius. Care was taken to avoid injury throughout the surgical procedure to the median nerve as well as to the radial artery. The flexor carpi radialis was retracted medially. We were able to essentially elevate the sheath of the flexor carpi radialis and then I was able to place my finger directly onto the distal radius. For the most part, the patient did her own dissection at the time of her injury. Soft tissues were elevated off the distal radius to allow access to the fracture and also to the volar aspect of the distal radial shaft. Fluoroscopy was used to determine whether or not the reduction was appropriate. We were able to reduce the fracture nearly anatomically, but there was significant comminution. We then evaluated the plate and chose the short narrow anatomic 3 hole plate for the right distal radius. The plate was attached proximally and distally without difficulty. A combination of locking and nonlocking screws were utilized to attach the plate utilizing exclusively locking screws distally. We had excellent fixation and reduction of the fracture. Fluoroscopy was utilized during the procedure. Once the plate was fully attached, we had a near anatomic position to the distal radius and the distal radius was out to length. Being satisfied with position, the area was copiously irrigated. There were no fascial tissues to close, and therefore we closed the subcutaneous tissues with 3-0 interrupted Monocryl. We then placed a subcuticular 4-0 Monocryl suture which was running. This was followed by Exofin, Steri-Strips, and OpSite. A volar splint was wrapped into position over soft roll and this was wrapped in place with an Santiago wrap. The tourniquet was released after 54 minutes. There were no complications. There were no specimens. Patient was returned to recovery room in a satisfactory condition. She was subsequently discharged home. She will follow-up with me as scheduled in her discharge instructions. Associated Problem List Diagnoses (1) Closed fracture of distal ends of right radius and ulna: Qualifiers: Encounter type: initial encounter Qualified Code(s): S52.501A - Unspecified fracture of the lower end of right radius, initial encounter for closed fracture; S52.601A - Unspecified fracture of lower end of right ulna, initial encounter for closed fracture
[2020-07-03 21:40] VITALS: BP 102/80; PULSE 76; RESP 18; TEMP 36.8; O2SAT 100
[2020-07-03 21:46] VITALS: BP 145/79; PULSE 87; RESP 18; TEMP 36.6; O2SAT 94
[2020-07-03 21:59] VITALS: BP 120/87; PULSE 75; RESP 18; TEMP 36.8; O2SAT 94
--- NOTE | 2020-07-03 22:20 | ANE.PACU2 ---
Inpatient post-anesthesia follow up: Airway intact: Yes Vital signs: Temperature 98.3 F Pulse Rate 75 Respiratory Rate 18 Blood Pressure 120/87 Pulse Oximetry 94 Oxygen Delivery Me thod Room Air Oxygen Flow Rate 8 Fraction of Inspir ed Oxygen Hydration adequate: Yes Nausea and vomiting: No Pain level: 1 Mental status: Baseline
== END 2020-07-03 22:25 | disposition home or self-care (01) ==
PROVIDERS: PCP Family Medicine; Visit Provider Specialist
PROC: (CPT 25608; principal; 2020-07-03 18:15)
DX: S52.571A Other intraarticular fracture of lower end of right radius, initial encounter for closed fracture (principal); J44.9 Chronic obstructive pulmonary disease, unspecified; I10 Essential (primary) hypertension; K21.9 Gastro-esophageal reflux disease without esophagitis; F17.210 Nicotine dependence, cigarettes, uncomplicated; Z88.0 Allergy status to penicillin; Z88.5 Allergy status to narcotic agent; W19.XXXA Unspecified fall, initial encounter; Y92.241 Library as the place of occurrence of the external cause
CPT/HCPCS: 25608; 12345; 73100; 76000; 80048; 81003; 85025; 96365; 96374; C1713; J0131; J1100; J2250; J2405; J2704; J2765; J2795; J3010; J3370; J3490; J7030; J7050

== ENCOUNTER → 2020-07-13 10:56 | Outpatient (BNVA) | payer MEDICARE, MEDICAID, SELFPAY | PROVIDERS: Family Provider Family Medicine; PCP Family Medicine; Visit Provider Anesthesiology Pain Medicine | DX: M54.2 Cervicalgia (principal); M48.062 Spinal stenosis, lumbar region with neurogenic claudication; M43.16 Spondylolisthesis, lumbar region; M51.17 Intervertebral disc disorders with radiculopathy, lumbosacral region; F17.210 Nicotine dependence, cigarettes, uncomplicated; Z98.890 Other specified postprocedural states; Z79.891 Long term (current) use of opiate analgesic | CPT/HCPCS: 99213; 99214 ==

== ENCOUNTER → 2020-07-16 08:50 | Outpatient (BNVA) | payer MEDICARE, MEDICAID, SELFPAY | PROVIDERS: Family Provider Family Medicine; PCP Family Medicine; Visit Provider Specialist | DX: Z98.890 Other specified postprocedural states (principal); S52.501A Unspecified fracture of the lower end of right radius, initial encounter for closed fracture; S52.601A Unspecified fracture of lower end of right ulna, initial encounter for closed fracture; X58.XXXA Exposure to other specified factors, initial encounter; Z47.89 Encounter for other orthopedic aftercare; S52.591D Other fractures of lower end of right radius, subsequent encounter for closed fracture with routine healing; S52.691D Other fracture of lower end of right ulna, subsequent encounter for closed fracture with routine healing; X58.XXXD Exposure to other specified factors, subsequent encounter | CPT/HCPCS: 73110; 97760; L3982 ==

== ENCOUNTER 2020-07-16 10:08 | Emergency (ER) | payer MEDICARE, MEDICAID, SELFPAY ==
[2020-07-16 10:39] VITALS: BP 111/62; PULSE 99; RESP 14; TEMP 36.8; O2SAT 98; BMI 21.9
--- NOTE | 2020-07-16 10:58 | XR_ITS ---
WS: [id number] Portable AP upright chest, 07/16/2020 Clinical Data: weakness Comparison: PA and lateral chest, 02/06/2019. Findings: No nodules, masses or effusions are seen. There is minimal patchy opacity overlying the rig ht diaphragm which could represent atelectasis and/or minimal pneumonia. The heart is normal. The pul monary vascularity is not increased. No pneumothorax is seen. Midline sternotomy sutures with an charles ficial heart valve are seen. The aortic arch shows calcification with tortuosity of the descending ao rta. XR/XR chest 1V portable [id number] Impression: 1. Minimal opacity overlying right lower lobe which could represent pneumonia o r atelectasis. 2. Atherosclerosis with artificial heart valve replacement.
--- NOTE | 2020-07-16 10:58 | ECG_ITS ---
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 Measurements Intervals [place] Rate: 61 P: 71 [place]: 152 QRS: 50 QRSD: 90 T: 65 QT: 461 QTc: 465 Interpretive Statements SINUS RHYTHM Compared to ECG 05/05/2017 05:43:37 Incomplete right bundle-branch block no longer present ST (T wave) deviation no longer present Prolonged QT interval no longer present Electronically Signed On 07-16-2020 19:22:11 CDT by Wei Donald M.D. [id number]
[2020-07-16 12:09] VITALS: BP 119/50; PULSE 60; RESP 14; O2SAT 97
[2020-07-16] MEDS: sodium chloride 0.9% 1,000 ML 999 ML IV (12:13)
[2020-07-16 12:18] LABS: Basophils # 0.1 10^3/uL (0.0-0.1); Basophils % 1.5 %; Eosinophils # 0.2 10^3/uL (0.0-0.8); Eosinophils % 1.6 %; Hematocrit 35.7 % (37.0-47.0); Hemoglobin 10.9 g/dL (11.5-15.3); Lymphocytes # 2.7 10^3/uL (0.8-4.8); Mean Corpuscular HGB Conc 30.5 g/dL (30.0-36.0); Mean Corpuscular Hemoglobin 31.1 pg (28.0-34.0); Mean Platelet Volume 9.5 fL (7.4-10.4); Monocytes # 0.7 10^3/uL (0.2-0.9); Monocytes % 7.8 %; Neutrophils # 5.54 10^3/uL (1.8-7.7); Neutrophils % 59.7 %; Nucleated Red Blood Cells % 0 %; Platelet Count 420 10^3/cmm (130-400); Red Cell Distribution Width 14.8 % (12.1-15.1); White Blood Count 9.3 10^3/uL (4.0-10.0)
--- NOTE | 2020-07-16 12:29 | W.ED.GENADLT ---
HPI - General Adult General: Chief complaint: General Medical Stated complaint: low BP, weakness today Time Seen by Provider: 07/16/20 11:38 Source: patient Mode of arrival: ambulatory Limitations: no limitations History of Present Illness: HPI narrative: 65-year-old female who states she is had some generalized weakness over the last 2 days. She states she took her blood pressure pill this morning and went to an orthopedic follow-up and blood pressure was in the 80s. She states she was having some lightheadedness they sent her here. Patient's blood pressure here is been normal. She states she feels improved here. She denies any chest pain or headache. Denies any vomiting or diarrhea. Denies any worsening or improving factors. Associated symptoms: Deny chest pain, dyspnea, headache(s), nausea, rash or vomiting Review of Systems Const: Denies: fever(s), chills, body aches or change in appetite Eyes: Denies: blurry vision or eye discomfort ENMT: Denies: throat pain or dental pain Card: Denies: chest pain Resp: Denies: dyspnea GI: Denies: abdominal pain, nausea, vomiting or diarrhea : Denies: dysuria Musc: Reports: muscle weakness Skin/Breast: Denies: rash Neuro: Denies: headache(s) Psych: Denies: depression Stanley/Lymph: Denies: easy bruising All/Imm: Denies: urticaria PFSH ED PFSH: Medical History Chronic nausea COPD (chronic obstructive pulmonary disease) Essential hypertension GERD (gastroesophageal reflux disease) History of TMJ disorder Left sided surgery Intervertebral disc disorder with radiculopathy of lumbosacral region Joint instability Spinal stenosis, lumbar region with neurogenic claudication Spondylolisthesis of lumbar region Surgical History History of cervical spinal surgery 1996 C5-C6 fusion [place], [place] History of hysterectomy History of mitral valve replacement with bioprosthetic valve History of open heart surgery Open heart surgery with valve replacement, performed in [place], [place] by Dr. Taylor, 2015 History of tonsillectomy History of tubal ligation Family History Other No pertinent family history Social History Smoking and tobacco status: current every day smoker cigarettes Packs smoked per day: 0.5 Alcohol intake: never Household members: family Marital status: Current occupational status: disabled History of recent travel: No Physical Exam Const: COMMON NORMALS: no acute distress, patient oriented x3 and healthy appearing HENMT: COMMON NORMALS: normocephalic and atraumatic HEAD & SCALP: normocephalic and atraumatic Eye: COMMON NORMALS: Equal, round and reactive pupils present and EOMs intact bilaterally PUPIL: Yes Equal, round and reactive pupils present Neck/C-Spine: COMMON NORMALS: full ROM and supple Chest: COMMONS NORMALS: normal inspection of the chest and normal palpation of entire chest wall Resp: COMMON NORMALS: normal respiratory effort, No retractions, No use of accessory muscles and clear to auscultation bilaterally AUSCULTATION: clear to auscultation bilaterally Cardio: COMMON NORMALS: regular rate, regular rhythm and No murmurs present (Cardio) RATE: regular rate RHYTHM: regular rhythm GI: COMMON NORMALS: Normal to inspection, nondistended, normoactive bowel sounds present, Soft to palpation, non-tender and no masses PALPATION: Yes Soft to palpation Extremity: COMMON NORMALS: normal to inspection and full ROM Neuro: COMMON NORMALS: patient oriented x3, moves all extremities and no focal motor deficits Psych: COMMON NORMALS: mental status grossly normal, Normal thought process present and cooperative THOUGHT PROCESS: Normal thought process present Skin: COMMON NORMALS: no rashes or lesions noted and no wounds GENERAL SKIN EXAM: no rashes or lesions noted Course Vital Signs: Vital signs: Vital Signs Temperature 98.3 F 07/16/20 10:39 Pulse Rate 65 07/16/20 12:59 Respiratory Rate 18 07/16/20 12:59 Blood Pressure 145/58 07/16/20 12:59 Pulse Oximetry 97 07/16/20 12:59 MDM - General Adult MDM Narrative: Medical decision making narrative: Patient presents here with generalized weakness that is since resolved. Her blood pressures here been normal and she has no signs of infection or sepsis. Patient feels improved. She is stable for discharge and is to follow-up with her PCP in 3 to 5 days return if worsening. Lab Data: Labs: Lab Results 07/16/20 07/16/20 07/16/20 Range/Units 12:02 12:02 12:02 WBC 9.3 (4.0-10.0) 10^3/ uL RBC 3.50 L (4.1-5.3) 10^6/u L Hgb 10.9 L (11.5-15.3) g/dL Hct 35.7 L (37.0-47.0) % MCV 102.0 H (81-99) fL MCH 31.1 (28.0-34.0) pg MCHC 30.5 (30.0-36.0) g/dL RDW 14.8 (12.1-15.1) % Plt Count 420 H (130-400) 10^3/c mm MPV 9.5 (7.4-10.4) fL Neut % (Auto) 59.7 % Lymph % (Auto) 29.0 % Wal[place] % (Auto) 7.8 % Eos % (Auto) 1.6 % Baso % (Auto) 1.5 % Neut # (Auto) 5.54 (1.8-7.7) 10^3/u L Lymph # (Auto) 2.7 (0.8-4.8) 10^3/u L Waldo # (Auto) 0.7 (0.2-0.9) 10^3/u L Eos # (Auto) 0.2 (0.0-0.8) 10^3/u L Baso # (Auto) 0.1 (0.0-0.1) 10^3/u L Nucleated RBC % (a uto) 0 % Nucleated RBCs # 0.0 /100WBC PT 12.20 (12.1-14.9) SECO NDS INR 0.88 (0.8-1.2) Sodium 137 (136-145) mmol/L Potassium 4.0 (3.5-5.1) mmol/L Chloride 106 (98-107) mmol/L Carbon Dioxide 21 L (22-29) mmol/L Anion Gap 14.0 (5-19) BUN 22 (8-23) mg/dL Creatinine 1.4 H (0.5-0.9) mg/dL GFR Calculation 37.7 L (90-130) mL/min Glucose 95 (65-115) mg/dL Calculated Osmolal ity 287 (285-295) mOsm/k g Lactate (0.5-2.2) mmol/L Calcium 9.6 (8.5-10.5) mg/dL Total Bilirubin 0.2 (0.15-1.2) mg/dL AST 10 (0-32) U/L ALT 7 (0-33) U/L Alkaline Phosphata se 161 H (35-105) IU/L Total Protein 6.5 L (6.6-8.7) g/dL Albumin 3.5 (3.5-5.2) g/dL Globulin 3.0 (1.3-4.6) g/dL 07/16/20 Range/Units 12:02 WBC (4.0-10.0) 10^3/ uL RBC (4.1-5.3) 10^6/u L Hgb (11.5-15.3) g/dL Hct (37.0-47.0) % MCV (81-99) fL MCH (28.0-34.0) pg MCHC (30.0-36.0) g/dL RDW (12.1-15.1) % Plt Count (130-400) 10^3/c mm MPV (7.4-10.4) fL Neut % (Auto) % Lymph % (Auto) % Waldo % (Auto) % Eos % (Auto) % Baso % (Auto) % Neut # (Auto) (1.8-7.7) 10^3/u L Lymph # (Auto) (0.8-4.8) 10^3/u L Waldo # (Auto) (0.2-0.9) 10^3/u L Eos # (Auto) (0.0-0.8) 10^3/u L Baso # (Auto) (0.0-0.1) 10^3/u L Nucleated RBC % (a uto) % Nucleated RBCs # /100WBC PT (12.1-14.9) SECO NDS INR (0.8-1.2) Sodium (136-145) mmol/L Potassium (3.5-5.1) mmol/L Chloride (98-107) mmol/L Carbon Dioxide (22-29) mmol/L Anion Gap (5-19) BUN (8-23) mg/dL Creatinine (0.5-0.9) mg/dL GFR Calculation (90-130) mL/min Glucose (65-115) mg/dL Calculated Osmolal ity (285-295) mOsm/k g Lactate 1.0 (0.5-2.2) mmol/L Calcium (8.5-10.5) mg/dL Total Bilirubin (0.15-1.2) mg/dL AST (0-32) U/L ALT (0-33) U/L Alkaline Phosphata se (35-105) IU/L Total Protein (6.6-8.7) g/dL Albumin (3.5-5.2) g/dL Globulin (1.3-4.6) g/dL Imaging Data^: CXR: Radiologist's impression: [address] [address] XRay Report Signed Patient: Felipa Winslow Unit #: [id number] : 1955 Age/Sex: 65 / F ADM Date: 07/16/20 Loc: ER Room/Bed: Attending Dr: Ordering Provider/Ordering MD: Phillip Sosa MD Date of Service: 07/16/20 Procedure(s): XR chest 1V portable [id number] Accession Number(s): [id number] Report Number: [id number] WS: [id number] Portable AP upright chest, 07/16/2020 Clinical Data: weakness Comparison: PA and lateral chest, 02/06/2019. Findings: No nodules, masses or effusions are seen. There is minimal patchy opacity overlying the right diaphragm which could represent atelectasis and/or minimal pneumonia. The heart is normal. The pulmonary vascularity is not increased. No pneumothorax is seen. Midline sternotomy sutures with an artificial heart valve are seen. The aortic arch shows calcification with tortuosity of the descending aorta. XR/XR chest 1V portable [id number] Impression: 1. Minimal opacity overlying right lower lobe which could represent pneumonia or atelectasis. 2. Atherosclerosis with artificial heart valve replacement. EKG Data^: EKG 1: Attestation: I personally reviewed and interpreted this EKG as follows: EKG interpretation date: 07/16/20 EKG interpretation time: 11:57 Interpretation: nsr hr [address] or t wave abnormalities qrs 90 qtc 463 Computer generated interpretation: Chest X-Ray 07/16/20 10:58 Impression: 1. Minimal opacity overlying right lower lobe which could represent pneumonia or atelectasis. 2. Atherosclerosis with artificial heart valve replacement. Discharge Plan Discharge Patient Disposition: Home Clinical Impression: Weakness Condition: Stable Prescriptions: No Action metoprolol tartrate 50 mg tablet 50 mg PO BID Qty: 60 RF: 6 azelastine 137 mcg (0.1 %) aerosol,spray 2 spray INTRANASAL BID RF: 0 acetaminophen 500 mg tablet 500 - 1,000 mg PO TID PRN (Reason: Pain) RF: 0 melatonin 5 mg capsule 5 mg PO BEDTIME PRN (Reason: Sleep) RF: 0 tramadol 50 mg tablet 50 mg PO TID PRN (Reason: pain) Qty: 90 RF: 0 gabapentin 600 mg tablet 600 mg PO TID Qty: 90 RF: 0 celecoxib [Celebrex] 200 mg capsule 200 mg PO DAILY Qty: 30 RF: 0 (DME) Fast Form Cock up Splint See Rx Instructions .ROUTE .MEDSUPPLY Qty: 1 RF: 0 cetirizine [Zyrtec] 10 mg tablet 10 mg PO DAILY Qty: 30 RF: 0 cyanocobalamin (vitamin B-12) 1,000 mcg/mL solution 1,000 mcg IM .ONCE MONTHLY 7 Days Qty: 1 RF: 5 fluticasone propionate [Flonase Allergy Relief] 50 mcg/actuation spray,suspension 1 spray INTRANASAL DAILY Qty: 16 RF: 4 atorvastatin 20 mg tablet 20 mg PO DAILY Qty: 6 RF: 0 albuterol sulfate [ProAir HFA] 90 mcg/actuation HFA aerosol inhaler 2 puff INHALATION BID PRN (Reason: shortness of breath or wheezing) Qty: 18 RF: 3 cyclobenzaprine 10 mg tablet 10 mg PO Q8H PRN (Reason: muscle spasm) Qty: 90 RF: 2 promethazine 25 mg tablet 25 mg PO DAILY PRN (Reason: nausea and vomiting) Qty: 30 RF: 2 Latuda 40 mg tablet 40 mg PO QDAY Qty: 30 RF: 1 citalopram 20 mg tablet 20 mg PO DAILY RF: 0 pantoprazole 40 mg tablet,delayed release (DR/EC) 40 mg PO DAILY RF: 0 montelukast 10 mg tablet 10 mg PO DAILY RF: 0 buspirone 15 mg tablet 15 mg PO DAILY RF: 0 Discharge Orders: Discharge Order (Routine); Ordered 07/16/20 Ordered By: Phillip Sosa Referrals: Debra Monet DO [Primary Care Provider] - 1-3 days Discharge Diet: Advance as tolerated Discharge Activity: Resume usual activity Patient Instructions: Weakness (ED) Discharge Date/Time: 07/16/20 13:00 Coding Level of Care Code ED Manager Process for Irmag Fwd Exam Comprehensive
[2020-07-16 12:30] LABS: INR 0.88 (0.8-1.2)
[2020-07-16 12:35] LABS: Alanine Aminotransferase 7 U/L (0-33); Albumin Level 3.5 g/dL (3.5-5.2); Alkaline Phosphatase 161 IU/L (35-105); Aspartate Amino Transferase 10 U/L (0-32); Blood Urea Nitrogen 22 mg/dL (8-23); Calcium 9.6 mg/dL (8.5-10.5); Carbon Dioxide 21 mmol/L (22-29); Chloride 106 mmol/L (98-107); Glomerular Filtration Rate 37.7 mL/min (90-130); Glucose 95 mg/dL (65-115); Osmolality Calculated 287 mOsm/kg (285-295); Sodium 137 mmol/L (136-145); Total Bilirubin 0.2 mg/dL (0.15-1.2); Total Protein 6.5 g/dL (6.6-8.7)
[2020-07-16 12:59] VITALS: BP 145/58; PULSE 65; RESP 18; O2SAT 97
== END 2020-07-16 13:00 | disposition home or self-care (01) ==
PROVIDERS: Emergency Provider Emergency Medicine; PCP Family Medicine
DX: R53.1 Weakness (principal); J44.9 Chronic obstructive pulmonary disease, unspecified; I10 Essential (primary) hypertension; F17.210 Nicotine dependence, cigarettes, uncomplicated; I70.0 Atherosclerosis of aorta
CPT/HCPCS: 12345; 71045; 80053; 83605; 85025; 85610; 93005; 96360; 99282; 99283; J7030

== ENCOUNTER 2020-07-16 11:24 | Outpatient (CLI) | payer MEDICARE, MEDICAID, SELFPAY | END 2020-07-16 11:25 | disposition home or self-care (01) | LOC: SPT 11:25 | PROVIDERS: Family Provider Family Medicine; PCP Family Medicine; Visit Provider Specialist | DX: Z47.89 Encounter for other orthopedic aftercare (principal); S52.591D Other fractures of lower end of right radius, subsequent encounter for closed fracture with routine healing; S52.691D Other fracture of lower end of right ulna, subsequent encounter for closed fracture with routine healing; X58.XXXD Exposure to other specified factors, subsequent encounter | CPT/HCPCS: 97760; L3982 ==

== ENCOUNTER → 2020-07-20 12:53 | Outpatient (BNVA) | payer MEDICARE, MEDICAID, SELFPAY | PROVIDERS: Family Provider Family Medicine; PCP Family Medicine; Visit Provider Anesthesiology Pain Medicine | DX: M47.816 Spondylosis without myelopathy or radiculopathy, lumbar region (principal); M48.062 Spinal stenosis, lumbar region with neurogenic claudication; F17.210 Nicotine dependence, cigarettes, uncomplicated; Z79.891 Long term (current) use of opiate analgesic | CPT/HCPCS: 64483; 64484; J1040; J3490 ==

== ENCOUNTER → 2020-08-06 16:33 | Outpatient (BNVA) | payer MEDICARE, MEDICAID, SELFPAY | PROVIDERS: Family Provider Family Medicine; PCP Family Medicine; Visit Provider Specialist | DX: S52.501A Unspecified fracture of the lower end of right radius, initial encounter for closed fracture (principal); Z98.890 Other specified postprocedural states; S52.601A Unspecified fracture of lower end of right ulna, initial encounter for closed fracture; X58.XXXA Exposure to other specified factors, initial encounter | CPT/HCPCS: 73110 ==

== ENCOUNTER → 2020-08-13 12:56 | Outpatient (BNVA) | payer MEDICARE, MEDICAID, SELFPAY | PROVIDERS: Family Provider Family Medicine; PCP Family Medicine; Visit Provider Anesthesiology Pain Medicine | DX: M54.2 Cervicalgia (principal); M48.062 Spinal stenosis, lumbar region with neurogenic claudication; M43.16 Spondylolisthesis, lumbar region; M51.17 Intervertebral disc disorders with radiculopathy, lumbosacral region; F17.210 Nicotine dependence, cigarettes, uncomplicated; Z98.890 Other specified postprocedural states; Z79.891 Long term (current) use of opiate analgesic | CPT/HCPCS: 99213; 99214 ==

== ENCOUNTER → 2020-09-02 10:19 | Outpatient (BNVA) | payer MEDICARE, MEDICAID, SELFPAY | PROVIDERS: Family Provider Family Medicine; PCP Family Medicine; Visit Provider Anesthesiology Pain Medicine | DX: M79.18 Myalgia, other site (principal); M48.062 Spinal stenosis, lumbar region with neurogenic claudication; M43.16 Spondylolisthesis, lumbar region; M51.17 Intervertebral disc disorders with radiculopathy, lumbosacral region; M54.2 Cervicalgia; F17.210 Nicotine dependence, cigarettes, uncomplicated; Z98.890 Other specified postprocedural states | CPT/HCPCS: 20553; 99213; 99214; J1030; J3490 ==

== ENCOUNTER → 2020-09-09 11:11 | Outpatient (BNVA) | payer MEDICARE, MEDICAID, SELFPAY | PROVIDERS: Family Provider Family Medicine; PCP Family Medicine; Visit Provider Specialist | DX: S52.501A Unspecified fracture of the lower end of right radius, initial encounter for closed fracture (principal); S52.601A Unspecified fracture of lower end of right ulna, initial encounter for closed fracture | CPT/HCPCS: 73110 ==

== ENCOUNTER → 2020-10-05 14:50 | Outpatient (BNVA) | payer MEDICARE, MEDICAID, SELFPAY | PROVIDERS: Family Provider Family Medicine; PCP Family Medicine; Visit Provider Nurse Practitioner Family | DX: Z20.828 Contact with and (suspected) exposure to other viral communicable diseases (principal) | CPT/HCPCS: 87635 ==

== ENCOUNTER → 2020-11-03 09:51 | Outpatient (BNVA) | payer MEDICARE, MEDICAID, SELFPAY | PROVIDERS: Family Provider Family Medicine; PCP Family Medicine; Visit Provider Anesthesiology Pain Medicine | DX: M48.062 Spinal stenosis, lumbar region with neurogenic claudication (principal); M51.17 Intervertebral disc disorders with radiculopathy, lumbosacral region; M54.2 Cervicalgia; M43.16 Spondylolisthesis, lumbar region; F17.210 Nicotine dependence, cigarettes, uncomplicated; Z98.890 Other specified postprocedural states; Z79.891 Long term (current) use of opiate analgesic | CPT/HCPCS: 99214 ==

== ENCOUNTER 2020-11-22 12:58 | Inpatient (IN) | payer MEDICARE, MEDICAID, SELFPAY ==
[2020-11-22] VITALS (28 sets, daily range): BP systolic 139–205; BP diastolic 63–124; PULSE 80–104; RESP 14–32; TEMP 36.7–37.1; O2SAT 85–100; BMI 19.7
--- NOTE | 2020-11-22 13:16 | XRR_ITS ---
PROCEDURE INFORMATION: Exam: XR Chest, 1 View Exam date and time: 11/22/2020 1:18 PM Age: 65 years old Clinical indication: Shortness of breath; Additional info: Reduced breath sounds TECHNIQUE: Imaging protocol: XR of the chest Views: 1 view. COMPARISON: CR XR chest 1V portable [id number] 07/16/2020 10:58 AM FINDINGS: Lungs: There is chronic interstitial prominence. No focal pulmonary consolidation or evidence of acute pulmonary finding. Pleural spaces: Unremarkable. No pleural effusion. No pneumothorax. Heart/Mediastinum: See Bones/joints finding. Vasculature: Aorta is calcified. Bones/joints: Median sternotomy and cardiac valve replacement. Heart is not significantly enlarged. XR/XR chest 1V portable [id number] IMPRESSION: No acute cardiopulmonary finding.
--- NOTE | 2020-11-22 13:16 | CTR_ITS ---
PROCEDURE INFORMATION: Exam: CT Head Without Contrast Exam date and time: 11/22/2020 1:59 PM Age: 65 years old Clinical indication: Altered mental status/memory loss; Confusion or disorientation; Patient HX: Ams/confusion TECHNIQUE: Imaging protocol: Computed tomography of the head without contrast. Radiation optimization: All CT scans at this facility use at least one of these dose optimization techniques: automated exposure control; mA and/or kV adjustment per patient size (includes targeted exams where dose is matched to clinical indication); or iterative reconstruction. COMPARISON: CT head wo con* [id number] 06/24/2020 8:47 PM RADIATION DOSE METRICS: Total DLP (mGy-cm): 1518.92 FINDINGS: Brain: There are chronic small infarcts in right posterior cerebellar hemisphere and bilateral superior parietal lobes. There is no acute intracranial hemorrhage. There is lucency in the cerebral white matter, likely microvascular disease although non-specific. Khanna white differentiation is intact. There are no extra-axial fluid collections. No evidence of mass. There is no mass effect or midline shift. Cerebral ventricles: The ventricles and sulci are enlarged, consistent with volume loss / atrophy. No hydrocephalus. Bones/joints: No acute fracture. Paranasal sinuses: There are postoperative changes in paranasal sinuses. There is small amount of residual mucosal thickening in bilateral frontal and ethmoid and left maxillary sinuses. There is a small left anterior ethmoid air cell osteoma. Mastoid air cells: No significant mastoid effusion. Vasculature: There is vascular calcification. Soft tissues: Unremarkable as visualized. CT/CT head wo con* [id number] IMPRESSION: 1. No evidence of acute intracranial abnormality. No evidence of acute infarction, hemorrhage, or mass. 2. Atrophy and microvascular disease. Small chronic infarcts. Radiation Dose CTDIVOL = (mGy): DLP = 1518.92 (mGy-cm)
--- NOTE | 2020-11-22 13:20 | ECG_ITS ---
[facility] Test Date: 2020-11-22 Pat Name: Felipa Winslow Department: Room: Gender: Female Manager Integration: : 1955 Requested By: Boni Phan Order Number: [id number] Shanice MD: JUDY CARDOSO Measurements Intervals [place] Rate: 90 P: 70 [place]: 134 QRS: 45 QRSD: 90 T: 65 QT: 393 QTc: 483 Interpretive Statements SINUS RHYTHM POSSIBLE RIGHT VENTRICULAR CONDUCTION DELAY [RSR (QR) IN V1/V2] SEPTAL MYOCARDIAL INFARCTION , OF INDETERMINATE AGE [40+ ms Q WAVE IN V1/V2] Compared to ECG 07/16/2020 11:57:11 Myocardial infarct finding now present Electronically Signed On 11-22-2020 21:08:17 MASTER SHEET CLERK by JUDY CARDOSO [id number]
--- NOTE | 2020-11-22 13:25 | ED_ITS ---
HPI - Altered Mental Status General: Chief Complaint: Altered Mental Status Stated Complaint: AMS Time Seen by Provider: 11/22/20 13:07 History of Present Illness: HPI narrative: The patient is a 65-year-old female with past medical history COPD who comes to the ER with altered mental status. The patient's relative found her in her home naked smeared with her own feces. She lives with her brother who apparently does not take care of her. She has never been altered before and has no history of dementia. The patient says she has heart problems but cannot define what they are. She does know who she is and she does know her family member next to her. She is alert but confused. She is talking on her own and some of her sentences do make sense. She complains of hand pain and then she complains of chronic arthritis in her hands. MD complaint: altered mental status and confusion Severity: severe Review of Systems General: Reports: ROS unobtainable due to medical condition and ROS unobtainable due to mental status [facility] ED PFSH: Medical History (Updated 11/22/20 @ 17:03 by Carlitos Vo MD) Chronic nausea COPD (chronic obstructive pulmonary disease) GERD (gastroesophageal reflux disease) History of TMJ disorder Left sided surgery Intervertebral disc disorder with radiculopathy of lumbosacral region Joint instability Spinal stenosis, lumbar region with neurogenic claudication Spondylolisthesis of lumbar region Surgical History History of cervical spinal surgery 1995 C5-C6 fusion [place], [place] History of hysterectomy History of mitral valve replacement with bioprosthetic valve History of open heart surgery Open heart surgery with valve replacement, performed in [place], [place] by Dr. Taylor, 2015 History of tonsillectomy History of tubal ligation Family History Other Alzheimer's disease No pertinent family history Social History Smoking and tobacco status: current every day smoker cigarettes Packs smoked per day: 0.5 Alcohol intake: never Lives independently: No (LIVES WITH BROTHER) Household members: family Marital status: Current occupational status: disabled History of recent travel: No Physical Exam Const: COMMON NORMALS: no acute distress, average body habitus, no limitations, healthy appearing, alert and well nourished GENERAL APPEARANCE: cooperative, comfortable and well developed ORIENTATION/CONSCIOUSNESS: Yes awake and Yes oriented to person HENMT: COMMON NORMALS: normocephalic, external ears normal and Normal external nose present HEAD & SCALP: normal to inspection and normocephalic NOSE: Normal external nose present EXTERNAL EAR: Yes external ears normal MOUTH: Normal oral and palatal mucosa present THROAT: posterior oropharynx normal Eye: COMMON NORMALS: Equal, round and reactive pupils present and EOMs intact bilaterally GENERAL EYE: appearance normal, both eyes and all related structures PUPIL: Yes Equal, round and reactive pupils present Neck/C-Spine: COMMON NORMALS: full ROM, no lymphadenopathy, no meningeal signs and no JVD GENERAL: Yes normal visual inspection Lymph: LYMPHATIC: no lymphadenopathy noted Chest: COMMONS NORMALS: normal inspection of the chest and normal palpation of entire chest wall Resp: COMMON NORMALS: normal respiratory effort, No retractions, No use of accessory muscles, clear to auscultation bilaterally and percussion normal EFFORT & INSPECTION: Yes able to speak in complete sentences AUSCULTATION: clear to auscultation bilaterally PERCUSSION: percussion normal Cardio: COMMON NORMALS: no JVD, regular rate, regular rhythm, S1 normal heart sound present, S2 normal heart sound present and Peripheral pulses 2+ throughout RATE: regular rate RHYTHM: regular rhythm HEART SOUNDS: S1 normal heart sound present and S2 normal heart sound present PERIPHERAL PULSES: Peripheral pulses 2+ throughout GI: COMMON NORMALS: Normal to inspection, nondistended, normoactive bowel sounds present, Soft to palpation, non-tender and no masses INSPECTION: Yes normal to inspection PALPATION: Yes Soft to palpation : COMMON NORMALS: Yes no CVA tenderness BLADDER/KIDNEY EXAM: Yes no CVA tenderness Back/Pelvis: COMMON NORMALS: no CVA tenderness, thoracic and lumbar spine normal to inspection, no thoracic nor lumbar tenderness and thoraco-lumbar ROM normal Extremity: COMMON NORMALS: normal to inspection, full ROM, capillary refill normal, no joint enlargement and no pedal edema GENERAL: Yes normal exam except as noted Neuro: SENSORIUM/ORIENTATION: Yes alert and Yes oriented to person MENINGEAL SIGNS: Yes no meningeal signs MOTOR EXAM: 5/5 motor strength present throughout OTHER: The patient is confused like a dementia patient. She is alert. She knows her name but she does not understand what is going on. She speaks in complete sentences and they do make sense that initially she does not answer all questions appropriately. After 1 or 2 hours here she is answering questions more appropriately Psych: APPEARANCE: Yes unkempt and Yes disheveled Skin: COMMON NORMALS: no rashes or lesions noted GENERAL SKIN EXAM: no rashes or lesions noted Course Vital Signs: Vital signs: Vital Signs Temperature 98.1 F 11/22/20 13:05 Pulse Rate 85 11/22/20 15:19 Respiratory Rate 18 11/22/20 15:19 Blood Pressure 177/87 11/22/20 15:19 Pulse Oximetry 95 11/22/20 15:19 MDM - Altered Mental Status MDM Narrative: Medical decision making narrative: This is a difficult case because the patient comes in with altered which is apparently significantly different than her baseline per her sister. She has some swallowing and a minimal left facial droop seen by the hospitalist but not by myself. Though her story sounds more of an acute delirium in the setting of dementia. CT head and CT angiogram head and neck were both negative. Attempted to have these patient seen by the [place] stroke team however we were unable to connect with technical difficulties. Either way her last known well was early yesterday and she is out of the window for TPA. Dr. Shane from [place] stroke team I spoke to over the phone who recommended admitting and getting an MRI in the morning. I discussed with Dr. Vo who accepts to the ICU. She does have barbiturates and marijuana in her urine drug screen which is concerning and adds to the evidence for an acute delirium. Lab Data: Labs: Lab Results 11/22/20 11/22/20 11/22/20 Range/Units 07:47 07:47 13:30 WBC 8.6 (4.0-10.0) 10^3/ uL RBC 4.11 (4.1-5.3) 10^6/u L Hgb 12.9 (11.5-15.3) g/dL Hct 39.7 (37.0-47.0) % MCV 96.6 (81-99) fL MCH 31.4 (28.0-34.0) pg MCHC 32.5 (30.0-36.0) g/dL RDW 13.7 (12.1-15.1) % Plt Count 334 (130-400) 10^3/c mm MPV 10.2 (7.4-10.4) fL Neut % (Auto) 67.3 % Lymph % (Auto) 19.7 % Cochran % (Auto) 11.2 % Eos % (Auto) 0.5 % Baso % (Auto) 1.0 % Neut # (Auto) 5.81 (1.8-7.7) 10^3/u L Lymph # (Auto) 1.7 (0.8-4.8) 10^3/u L Cochran # (Auto) 1.0 H (0.2-0.9) 10^3/u L Eos # (Auto) 0.0 (0.0-0.8) 10^3/u L Baso # (Auto) 0.1 (0.0-0.1) 10^3/u L Nucleated RBC % (a uto) 0 % Nucleated RBCs # 0.0 /100WBC Sodium (136-145) mmol/L Potassium (3.5-5.1) mmol/L Chloride (98-107) mmol/L Carbon Dioxide (22-29) mmol/L Anion Gap (5-19) BUN (8-23) mg/dL Creatinine (0.5-0.9) mg/dL GFR Calculation (90-130) mL/min Glucose (65-115) mg/dL Calculated Osmolal ity (285-295) mOsm/k g Lactate (0.5-2.2) mmol/L Calcium (8.5-10.5) mg/dL Total Bilirubin (0.15-1.2) mg/dL AST (0-32) U/L ALT (0-33) U/L Alkaline Phosphata se (35-105) IU/L Troponin T Baselin e (0-10) ng/L Troponin T 120 [place] (0-10) ng/L Delta Troponin T (0-10) ABS# NT-Pro-B Natriuret Pep (0-125) pg/mL Total Protein (6.6-8.7) g/dL Albumin (3.5-5.2) g/dL Globulin (1.3-4.6) g/dL Urine Color Yellow (Yellow) Urine Appearance Clear (CLEAR) Urine pH 6 (5-7) Ur Specific Gravit y 1.015 (1.005-1.030) Urine Protein Neg (Negative) Urine Glucose (UA) Norm (Normal) Urine Ketones 1+ H (Negative) Urine Blood Neg (Negative) Urine Nitrate Negative (Negative) Urine Bilirubin 1+ H (Negative) Urine Urobilinogen 1 H (Negative) mg/dL Ur Leukocyte Isamar ase Negative (Negative) Urine Opiates Scre en Negative (Negative) ng/mL Ur Barbiturates Sc reen Positive H (Negative) ng/mL Ur Phencyclidine S crn Negative (Negative) ng/mL Ur Amphetamines Sc reen Negative (Negative) ng/mL U Benzodiazepines Scrn Negative (Negative) ng/mL Urine Cocaine Scre en Negative (Negative) ng/mL U Marijuana (THC) Screen Positive H (Negative) ng/mL Ethyl Alcohol (0-10) mg/dL 11/22/20 11/22/20 11/22/20 Range/Units 13:30 13:30 13:30 WBC (4.0-10.0) 10^3/ uL RBC (4.1-5.3) 10^6/u L Hgb (11.5-15.3) g/dL Hct (37.0-47.0) % MCV (81-99) fL MCH (28.0-34.0) pg MCHC (30.0-36.0) g/dL RDW (12.1-15.1) % Plt Count (130-400) 10^3/c mm MPV (7.4-10.4) fL Neut % (Auto) % Lymph % (Auto) % Cochran % (Auto) % Eos % (Auto) % Baso % (Auto) % Neut # (Auto) (1.8-7.7) 10^3/u L Lymph # (Auto) (0.8-4.8) 10^3/u L Cochran # (Auto) (0.2-0.9) 10^3/u L Eos # (Auto) (0.0-0.8) 10^3/u L Baso # (Auto) (0.0-0.1) 10^3/u L Nucleated RBC % (a uto) % Nucleated RBCs # /100WBC Sodium 142 (136-145) mmol/L Potassium 3.9 (3.5-5.1) mmol/L Chloride 105 (98-107) mmol/L Carbon Dioxide 21 L (22-29) mmol/L Anion Gap 19.9 H (5-19) BUN 8 (8-23) mg/dL Creatinine 0.7 (0.5-0.9) mg/dL GFR Calculation 84.0 L (90-130) mL/min Glucose 97 (65-115) mg/dL Calculated Osmolal ity 292 (285-295) mOsm/k g Lactate 1.0 (0.5-2.2) mmol/L Calcium 9.5 (8.5-10.5) mg/dL Total Bilirubin 0.3 (0.15-1.2) mg/dL AST 11 (0-32) U/L ALT 9 (0-33) U/L Alkaline Phosphata se 154 H (35-105) IU/L Troponin T Baselin e 19 H (0-10) ng/L Troponin T 120 [place] (0-10) ng/L Delta Troponin T (0-10) ABS# NT-Pro-B Natriuret Pep 5990 H (0-125) pg/mL Total Protein 6.4 L (6.6-8.7) g/dL Albumin 4.0 (3.5-5.2) g/dL Globulin 2.4 (1.3-4.6) g/dL Urine Color (Yellow) Urine Appearance (CLEAR) Urine pH (5-7) Ur Specific Gravit y (1.005-1.030) Urine Protein (Negative) Urine Glucose (UA) (Normal) Urine Ketones (Negative) Urine Blood (Negative) Urine Nitrate (Negative) Urine Bilirubin (Negative) Urine Urobilinogen (Negative) mg/dL Ur Leukocyte Isamar ase (Negative) Urine Opiates Scre en (Negative) ng/mL Ur Barbiturates Sc reen (Negative) ng/mL Ur Phencyclidine S crn (Negative) ng/mL Ur Amphetamines Sc reen (Negative) ng/mL U Benzodiazepines Scrn (Negative) ng/mL Urine Cocaine Scre en (Negative) ng/mL U Marijuana (THC) Screen (Negative) ng/mL Ethyl Alcohol < 10 (0-10) mg/dL 11/22/20 Range/Units 16:13 WBC (4.0-10.0) 10^3/ uL RBC (4.1-5.3) 10^6/u L Hgb (11.5-15.3) g/dL Hct (37.0-47.0) % MCV (81-99) fL MCH (28.0-34.0) pg MCHC (30.0-36.0) g/dL RDW (12.1-15.1) % Plt Count (130-400) 10^3/c mm MPV (7.4-10.4) fL Neut % (Auto) % Lymph % (Auto) % [place]chran % (Auto) % Eos % (Auto) % Baso % (Auto) % Neut # (Auto) (1.8-7.7) 10^3/u L Lymph # (Auto) (0.8-4.8) 10^3/u L Cochran # (Auto) (0.2-0.9) 10^3/u L Eos # (Auto) (0.0-0.8) 10^3/u L Baso # (Auto) (0.0-0.1) 10^3/u L Nucleated RBC % (a uto) % Nucleated RBCs # /100WBC Sodium (136-145) mmol/L Potassium (3.5-5.1) mmol/L Chloride (98-107) mmol/L Carbon Dioxide (22-29) mmol/L Anion Gap (5-19) BUN (8-23) mg/dL Creatinine (0.5-0.9) mg/dL GFR Calculation (90-130) mL/min Glucose (65-115) mg/dL Calculated Osmolal ity (285-295) mOsm/k g Lactate (0.5-2.2) mmol/L Calcium (8.5-10.5) mg/dL Total Bilirubin (0.15-1.2) mg/dL AST (0-32) U/L ALT (0-33) U/L Alkaline Phosphata se (35-105) IU/L Troponin T Baselin e (0-10) ng/L Troponin T 120 [place] 15.80 H (0-10) ng/L Delta Troponin T -3.20 L (0-10) ABS# NT-Pro-B Natriuret Pep (0-125) pg/mL Total Protein (6.6-8.7) g/dL Albumin (3.5-5.2) g/dL Globulin (1.3-4.6) g/dL Urine Color (Yellow) Urine Appearance (CLEAR) Urine pH (5-7) Ur Specific Gravit y (1.005-1.030) Urine Protein (Negative) Urine Glucose (UA) (Normal) Urine Ketones (Negative) Urine Blood (Negative) Urine Nitrate (Negative) Urine Bilirubin (Negative) Urine Urobilinogen (Negative) mg/dL Ur Leukocyte Isamar ase (Negative) Urine Opiates Scre en (Negative) ng/mL Ur Barbiturates Sc reen (Negative) ng/mL Ur Phencyclidine S crn (Negative) ng/mL Ur Amphetamines Sc reen (Negative) ng/mL U Benzodiazepines Scrn (Negative) ng/mL Urine Cocaine Scre en (Negative) ng/mL U Marijuana (THC) Screen (Negative) ng/mL Ethyl Alcohol (0-10) mg/dL Discharge Plan Discharge Patient Disposition: Admitted As Inpatient Admit Provider: Carlitos Vo Clinical Impression: Altered mental status, Acute delirium Condition: Stable Coding Level of Care Code ED Health Insurance Assessor for Maria Del Carmen Fwd Exam Comprehensive
[2020-11-22] MEDS: levofloxacin-dextrose 5 % 750 MG/150 ML PREMIX 100 MG IV (13:37)
[2020-11-22] MEDS: sodium chloride 0.9% 1,000 ML 999 ML IV (13:37)
[2020-11-22] MEDS: cloNIDine 0.1 mg Tablet 0.2 MG PO (13:39)
[2020-11-22 13:55] LABS: Add Urine Microscopic? NO
--- NOTE | 2020-11-22 13:57 | PC.PT ---
PT UNABLE TO CONFIRM MEDICATIONS. THE PERSON WITH HER BROUGHT IN ALL THE MEDICATIONS SHE HAS, BUT SHE IS UNSURE IF/WHEN THE PT TOOK ANY OF THEM. FAMILY MEMBER STATES THAT THE PT IS A BIT NON CONPLIANT WITH TAKING HER MEDICATION. THERE WAS A BOTTLE OF MECLIZINE WITH NO PRESCRIPTION STICKER. NEITHER THE PT NOR THE PERSON WITH HER KNOWS HOW OR WHEN TO TAKE THIS.
[2020-11-22 14:08] LABS: Bilirubin Urine 1+ (Negative); Blood Urine Neg (Negative); Glucose Urine UA Norm (Normal); Ketones Urine 1+ (Negative); Nitrate Urine Negative (Negative); Protein Urine Neg (Negative); Specific Gravity, Urine 1.015 (1.005-1.030); Urine Appearance Clear (CLEAR); Urine Color Yellow (Yellow); Urobilinogen Urine 1 mg/dL (Negative); pH Urine 6 (5-7)
[2020-11-22 14:09] LABS: Leukocyte Esterase Urine Negative (Negative)
[2020-11-22 14:15] LABS: Amphetamines Screen Urine Negative (Negative); Barbiturates Screen Urine Positive (Negative); Benzodiazepines Screen Urine Negative (Negative); Cocaine Screen Urine Negative (Negative); Opiate Screen Urine Negative (Negative); PCP Screen Urine Negative (Negative); THC Screen Urine Positive (Negative)
[2020-11-22 14:18] LABS: Basophils # 0.1 10^3/uL (0.0-0.1); Eosinophils % 0.5 %; Hematocrit 39.7 % (37.0-47.0); Hemoglobin 12.9 g/dL (11.5-15.3); Lymphocytes # 1.7 10^3/uL (0.8-4.8); Lymphocytes % 19.7 %; Mean Corpuscular HGB Conc 32.5 g/dL (30.0-36.0); Mean Corpuscular Hemoglobin 31.4 pg (28.0-34.0); Mean Corpuscular Volume 96.6 fL (81-99); Mean Platelet Volume 10.2 fL (7.4-10.4); Monocytes % 11.2 %; Neutrophils # 5.81 10^3/uL (1.8-7.7); Neutrophils % 67.3 %; Nucleated Red Blood Cells % 0 %; Platelet Count 334 10^3/cmm (130-400); Red Blood Count 4.11 10^6/uL (4.1-5.3); Red Cell Distribution Width 13.7 % (12.1-15.1); White Blood Count 8.6 10^3/uL (4.0-10.0)
[2020-11-22 14:53] LABS: Troponin(5th) Baseline 19 ng/L (0-10)
[2020-11-22 15:02] LABS: Alanine Aminotransferase 9 U/L (0-33); Alkaline Phosphatase 154 IU/L (35-105); Anion Gap 19.9 (5-19); Aspartate Amino Transferase 11 U/L (0-32); Blood Urea Nitrogen 8 mg/dL (8-23); Calcium 9.5 mg/dL (8.5-10.5); Carbon Dioxide 21 mmol/L (22-29); Chloride 105 mmol/L (98-107); Globulin 2.4 g/dL (1.3-4.6); Glucose 97 mg/dL (65-115); NT Pro B Type Natriuretic Pept 5990 pg/mL (0-125); Osmolality Calculated 292 mOsm/kg (285-295); Potassium 3.9 mmol/L (3.5-5.1); Sodium 142 mmol/L (136-145); Total Bilirubin 0.3 mg/dL (0.15-1.2); Total Protein 6.4 g/dL (6.6-8.7)
[2020-11-22 15:03] LABS: Alcohol Level < 10 mg/dL (0-10)
--- NOTE | 2020-11-22 15:11 | CTR_ITS ---
PROCEDURE INFORMATION: Exam: CT Angiography Head With Contrast Exam date and time: 11/22/2020 3:28 PM Age: 65 years old Clinical indication: Cognitive deficit; Type not specified; Prior surgery; Surgery date: 6+ months; Surgery type: Acdf; Patient HX: Ams/confusion; Additional info: Altered mental status TECHNIQUE: Imaging protocol: Computed tomography angiography of the head with intravenous contrast. 3D rendering (Not supervised by radiologist): MIP and/or 3D reconstructed images were created by the technologist. Total images: 747 Radiation optimization: All CT scans at this facility use at least one of these dose optimization techniques: automated exposure control; mA and/or kV adjustment per patient size (includes targeted exams where dose is matched to clinical indication); or iterative reconstruction. Contrast material: OMNI 350; Contrast volume: 75 ml; Contrast route: INTRAVENOUS (IV); COMPARISON: CT head wo con* [id number] 11/22/2020 2:11 PM RADIATION DOSE METRICS: Total DLP (mGy-cm): 1333.13 FINDINGS: ANTERIOR CIRCULATION: Right internal carotid artery: Cerebral arteriosclerosis of the internal carotid artery terminus but without resulting hemodynamically significant stenosis. Intracranial segment is patent with no significant stenosis. No aneurysm. Right middle cerebral artery: Unremarkable. No occlusion or significant stenosis. No aneurysm. Right anterior cerebral artery: Unremarkable. No occlusion or significant stenosis. No aneurysm. Left internal carotid artery: Cerebral arteriosclerosis of the internal carotid artery terminus but without resulting hemodynamically significant stenosis. Intracranial segment is patent with no significant stenosis. No aneurysm. Left middle cerebral artery: Unremarkable. No occlusion or significant stenosis. No aneurysm. Left anterior cerebral artery: Unremarkable. No occlusion or significant stenosis. No aneurysm. POSTERIOR CIRCULATION: Right vertebral artery: Mildly hypoplastic. No occlusion or significant stenosis. No aneurysm. Left vertebral artery: Unremarkable. No occlusion or significant stenosis. No aneurysm. Basilar artery: Unremarkable. No occlusion or significant stenosis. No aneurysm. Right posterior cerebral artery: Unremarkable. No occlusion or significant stenosis. No aneurysm. Left posterior cerebral artery: Unremarkable. No occlusion or significant stenosis. No aneurysm. IMPRESSION: 1. Cerebral arteriosclerosis of the bilateral internal carotid artery terminus but without resulting hemodynamically significant stenosis. 2. No large vessel hemodynamically significant stenosis or occlusion. PROCEDURE INFORMATION: Exam: CT Angiography Neck With Contrast Exam date and time: 11/22/2020 3:28 PM Age: 65 years old Clinical indication: Cognitive deficit; Type not specified; Prior surgery; Surgery date: 6+ months; Surgery type: Acdf; Patient HX: Ams/confusion; Additional info: Altered mental status TECHNIQUE: Imaging protocol: Computed tomography angiography of the neck with intravenous contrast. 3D rendering (Not supervised by radiologist): MIP and/or 3D reconstructed images were created by the technologist. Radiation optimization: All CT scans at this facility use at least one of these dose optimization techniques: automated exposure control; mA and/or kV adjustment per patient size (includes targeted exams where dose is matched to clinical indication); or iterative reconstruction. Contrast material: OMNI 350; Contrast volume: 75 ml; Contrast route: INTRAVENOUS (IV); COMPARISON: CT head wo con* [id number] 11/22/2020 2:11 PM RADIATION DOSE METRICS: Total DLP (mGy-cm): 1333.13 FINDINGS: Right common carotid artery: No visible hemodynamically significant stenosis. No dissection or occlusion. Right internal carotid artery: Approximately 60% short segment stenosis of the proximal right internal carotid artery (series 4, image 80). No dissection or occlusion. Right external carotid artery: No occlusion or hemodynamically significant stenosis of the origin. Right vertebral artery: No stenosis. No dissection or occlusion. Mildly hypoplastic. Left common carotid artery: No hemodynamically significant stenosis. No dissection or occlusion. Left internal carotid artery: Approximately 60% short-segment stenosis of the proximal internal carotid artery just distal to the ostium (series 4, image 89). stenosis No dissection or occlusion. Left external carotid artery: No occlusion or hemodynamically significant stenosis of the origin. Left vertebral artery: No stenosis. Dominant. No dissection or occlusion. Thyroid: Right thyroid small nodule measuring approximately 12.8 mm. No follow-up recommended Bones/joints: No visible active or acute osseous abnormality. Degenerative disease and degenerative disc disease with osteopenia/osteoporosis. Increased cervical lordosis. Increased thoracic kyphosis. Age related findings. Soft tissues: Unremarkable for age. No significant soft tissue swelling. Lungs: Lungs unremarkable for age. CT/CT angio headneck* [id number] IMPRESSION: 1. Approximately 60% short segment stenosis of both the right and left internal carotid arteries as detailed in text above. 2. No visible occlusion or dissection. 3. 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 COMMENTS: Consistent with the [employer]'s Incidental Findings Committee white paper ([employer]iol 2015): In patients aged 35 years and older with an incidental thyroid nodule equal to or greater than 1.[address], MRI or extrathyroidal US, further evaluation with dedicated thyroid US is recommended for patients with normal life expectancy and without comorbidities. For smaller nodules without suspicious features, no further evaluation or follow up is recommended. REFERENCES: NASCET CRITERIA. The degree of internal carotid artery stenosis is based on NASCET criteria. Normal is no stenosis. Mild is less than 50% stenosis. Moderate is 50-69% stenosis. Severe is 70% to 99% stenosis. Total occlusion is no detectable patent lumen. Radiation Dose CTDIVOL = (mGy): DLP = 1333.13~1333.13 (mGy-cm)
--- NOTE | 2020-11-22 15:20 | ECG_ITS ---
[facility] Test Date: 2020-11-22 Pat Name: Felipa Winslow Department: Room: Gender: Female [employer]p [employer]: : 1955 Requested By: Boni Phan Order Number: [id number] Reading MD: JUDY CARDOSO Measurements Intervals [place] Rate: 85 P: 51 [place]: 136 QRS: 21 QRSD: 93 T: 53 QT: 433 QTc: 515 Interpretive Statements SINUS RHYTHM INCOMPLETE RIGHT BUNDLE BRANCH BLOCK [90+ ms QRS DURATION, TERMINAL R IN V1/V2, 40+ ms S IN I/aVL/V4/V5/V6] MINIMAL ST DEPRESSION [0.025+ mV ST DEPRESSION] PROLONGED QT INTERVAL Compared to ECG 11/22/2020 14:04:54 Incomplete right bundle-branch block now present ST (T wave) deviation now present Prolonged QT interval now present Myocardial infarct finding no longer present Electronically Signed On 11-22-2020 21:18:48 ETHANOL MAINTENANCE MECHANIC by JUDY CARDOSO [id number]
[2020-11-22] MEDS: iohexol 350 mg/mL 100 mL Btl IV (15:50)
--- NOTE | 2020-11-22 16:36 | P.HP_ITS ---
Providers/Chief Complaint Primary Care Provider: Debra Monet DO Chief Complaint: AMS History of Present Illness Felipa Winslow is a 65 year old female was found by her aide confused and disoriented and covered in urine and feces. This is a significant change from her baseline as per patient's aide at bedside. Patient was oriented to self, year and place during my evaluation. When asked what brings her to the hospital she replied I was cold . On review of systems she complained of pain everywhere. She complained of abdominal pain and left temporal area headache. She complained of neck pain which upon further discussion appears to be a chronic pain for many years for which she is seeing pain clinic. She complains of low back pain which is also chronic. She denies chest pain. She was noted to have left facial droop and noted to choke when she tried drinking water. She otherwise does not have other focal neurological findings. Her initial head CT was negative. CTA head and neck also was unremarkable. Dr. Case contacted [facility] stroke team but unfortunately there was some trouble with connection and recommendation was to observe overnight and obtain MRI/MRA in the morning. Patient seen pain rn clinical documentation specialist recently and note mentions that she has been taking her tramadol more than it was prescribed. Patient's aide at bedside reports that she takes a lot of pain medications if she can get them. When asked patient what she takes at home she immediately said oxycodone. She could not tell me who prescribes her oxycodone. She admits smoking cigarettes and denied recently smoking marijuana. She lives with her brother and apparently they do not have running water. They both have heaters and wood-burning stove apparently is not functioning. Her BNP is significantly elevated but clinically patient does not appear to be in heart failure. Patient answers most questions appropriately but at times appears to be mildly confused. We have discussed regarding possible causes of her confusion including meningitis/encephalitis. When we talked about lumbar puncture she adamantly refused. When I talked about potential neck amd back surgery down the road if she continues to have pain she got somewhat agitated thinking that we are going to take her to the surgery now. I have explained that we are not going to perform any surgery at this point and we only discussing possible interventions down the road if she felt necessary. It appears that patient's mental status gradually improved while she was in ER. Review of Systems Const: Denies: fever(s) or chills Eyes: Denies: change in vision ENMT: Reports: throat pain; Denies: change in hearing Card: Denies: chest pain, edema or lightheadedness Resp: Denies: dyspnea or productive cough GI: Reports: abdominal pain; Denies: nausea, vomiting, dysphagia, diarrhea, constipation, hematochezia or me apoorva : Denies: difficulty voiding Musc: Reports: joint pain; Denies: joint swelling Skin/Breast: Denies: rash or erythema Neuro: Reports: headache(s); Denies: weakness in extremities Psych: Denies: depression or suicidal ideation Endo: Denies: excessive sweating Stanley/Lymph: Denies: easy bleeding or tender lymph nodes All/Imm: Denies: throat swelling Medications/Allergies Home Medications Medication Instructions Recorded Confirmed Last Taken Type azelastine 137 mcg (0.1 %) nasal 2 spray INTRANASAL BID 01/29/20 11/22/20 07/02/20 History spray aerosol fluticasone propionate 50 1 spray INTRANASAL DAILY #16 gm 05/13/20 11/22/20 07/02/20 Rx mcg/actuation nasal spray,suspension acetaminophen 500 mg tablet 500 - 1,000 mg PO TID PRN tab 05/14/20 11/22/20 07/02/20 History melatonin 5 mg capsule 5 mg PO BEDTIME PRN cap 05/14/20 11/22/20 07/02/20 History atorvastatin 20 mg tablet 20 mg PO DAILY #6 tab 06/02/20 11/22/20 07/02/20 Rx albuterol sulfate 90 mcg/actuation 2 puff INHALATION BID PRN #18 gm 06/23/20 11/22/20 07/01/20 Rx aerosol inhaler Fast Form Cock up Splint #1 each 07/16/20 11/22/20 Unknown Rx cyclobenzaprine 10 mg tablet 10 mg PO Q8H PRN #90 tab 09/07/20 11/22/20 Unknown Rx promethazine 25 mg tablet 25 mg PO DAILY PRN #30 tab 09/07/20 11/22/20 Unknown Rx prednisone 20 mg tablet 60 mg PO DAILY 9 Days #18 tab 10/05/20 11/22/20 Unknown Rx celecoxib 200 mg capsule 200 mg PO DAILY@1000 11/03/20 11/22/20 Unknown History tramadol 50 mg tablet 50 mg PO TID PRN #90 tab 11/03/20 11/22/20 Unknown Rx Zyrtec 10 mg PO DAILY@1000 11/22/20 11/22/20 Unknown History buspirone 15 mg PO DAILY@1000 11/22/20 11/22/20 Unknown History citalopram 20 mg PO DAILY@1000 11/22/20 11/22/20 Unknown History cyanocobalamin (vitamin B-12) 1,000 mcg IM Q30D 11/22/20 11/22/20 Unknown Histor y gabapentin 600 mg PO TID@1000,1200,2200 11/22/20 11/22/20 Unknown History lurasidone [Latuda] 40 mg PO DAILY 11/22/20 11/22/20 Unknown History metoprolol tartrate 50 mg PO BID@1000,2200 11/22/20 11/22/20 Unknown History montelukast 10 mg PO DAILY@1000 11/22/20 11/22/20 Unknown History pantoprazole 40 mg PO DAILY@1000 11/22/20 11/22/20 Unknown History Allergies Allergy/AdvReac Type Severity Reaction Status Date / Time codeine Allergy Unknown Verified 11/03/20 10:19 Penicillins Allergy Unknown Verified 11/03/20 10:19 sulfacetamide AdvReac nausea Verified 11/03/20 10:19 PFSH Acute PFSH: Medical History (Updated 11/22/20 @ 17:03 by Carlitos Vo MD) Chronic nausea COPD (chronic obstructive pulmonary disease) GERD (gastroesophageal reflux disease) History of TMJ disorder Left sided surgery Intervertebral disc disorder with radiculopathy of lumbosacral region Joint instability Spinal stenosis, lumbar region with neurogenic claudication Spondylolisthesis of lumbar region Surgical History History of cervical spinal surgery 1996 C5-C6 fusion [place], [place] History of hysterectomy History of mitral valve replacement with bioprosthetic valve History of open heart surgery Open heart surgery with valve replacement, performed in [place], [place] by Dr. Taylor, 2015 History of tonsillectomy History of tubal ligation Family History Other Alzheimer's disease No pertinent family history Social History Smoking and tobacco status: current every day smoker cigarettes Packs smoked per day: 0.5 Alcohol intake: never Lives independently: No (LIVES WITH BROTHER) Household members: family Marital status: Current occupational status: disabled History of recent travel: No Vitals/I&O/Wt Last Vital Signs Temp 98.1 F 11/22/20 13:05 Pulse 85 11/22/20 15:19 Resp 18 11/22/20 15:19 BP 177/87 11/22/20 15:19 Pulse Ox 95 11/22/20 15:19 11/22/20 11/22/20 11/22/20 06:59 14:59 22:59 Intake Total 1000 / 1000 150 / 1150 Balance 1000 / 1000 150 / 1150 Weight last 48 hrs Weight 48.988 kg Physical Exam Const: COMMON NORMALS: no acute distress, patient oriented x3 and alert HENMT: COMMON NORMALS: normocephalic and atraumatic HEAD & SCALP: normoc ephalic and atraumatic Eye: COMMON NORMALS: EOMs intact bilaterally, conjunctivae normal and no scleral icterus CONJUNCTIVA: Yes conjunctivae normal Neck/C-Spine: COMMON NORMALS: no lymphadenopathy and no meningeal signs Lymph: LYMPHATIC: no lymphadenopathy noted Chest: COMMONS NORMALS: normal palpation of entire chest wall Resp: COMMON NORMALS: No use of accessory muscles OTHER: Coarse what appeared upper airway transmitted sounds Cardio: COMMON NORMALS: regular rate, regular rhythm and No murmurs present (Cardio) RATE: regular rate RHYTHM: regular rhythm OTHER: No lower extr emity edema GI: COMMON NORMALS: Normal to inspection, nondistended, normoactive bowel sounds present, Soft to palpation and non-tender PALPATION: Yes Soft to palpation RECTAL EXAM: deferred : COMMON NORMALS: Yes no CVA tenderness BLADDER/KIDNEY EXAM: Yes no CVA tenderness Back/Pelvis: COMMON NORMALS: no CVA tenderness and thoracic and lumbar spine normal to inspection Extremity: COMMON NORMALS: normal to inspection and capillary refill normal Neuro: COMMON NORMALS: patient oriented x3 and no focal motor deficits SENSORIUM/ORIENTATION: Yes alert MENINGEAL SIGNS: Yes no meningeal signs OTHER: Slight facial asymmetry noted. Appears like a mild left facial droop Psych: COMMON NORMALS: mental status grossly normal, Normal thought process present and cooperative THOUGHT PROCESS: Normal thought process present Skin: COMMON NORMALS: no rashes or lesions noted GENERAL SKIN EXAM: no rashes or lesions noted Data : 11/22/20 13:30 11/22/20 13:30 A&P Assessment and plan (1) Acute delirium: This appears to be related to opioid medications. Stroke cannot be ruled out Status: Acute (2) COPD (chronic obstructive pulmonary disease): Not in exacerbation Status: Acute (3) Dehydration: Status: Acute Additional A&P Information PLAN: I will get gallbladder ultrasound as patient was complaining of abdominal pain and has 1+ bilirubin in her urine. Will request echocardiogram to evaluate wall motion ejection fraction. Patient currently appears dry. Will initiate stroke work-up including ST/PT/OT and obtain MRI/MRA tomorrow. I think patient will benefit from observation in ICU close to nursing station for close monitoring. I really think that patient took more opiate medications she was supposed to resulting in acute delirium. Attestations Medical Necessity Statement*: Patient with altered mental status requires close observation in ICU for monitoring, treatment and evaluation. I expect patient will require less than two midnights. Time Spent in Patient Care: Greater than 35 minutes Coding Level of Care Code Acute Speech Lang Path Therapist for Maria Del Carmen Jacinto Diagnoses Acute delirium R41.0 COPD (chronic obstructive pulmonary disease) J44.9 Dehydration E86.0
[2020-11-22] MEDS: D5-NS 0.45% + KCL 20 mEq 20 MEQ/1,000 ML BAG 50 MEQ IV (18:32)
[2020-11-22] MEDS: enoxaparin 40 mg/0.4 mL Syringe SUBCUT (18:32)
[2020-11-22 19:58] LABS: Troponin 5 6HR 18.83 ng/L (0-10)
[2020-11-22 20:06] LABS: Troponin 5 6HR Delta -0.17 ng/L (0-12)
[2020-11-22] MEDS: acetaminophen 325 mg Tablet 650 MG PO (20:06)
[2020-11-22] MEDS: sennosides 8.6 mg Tablet 17.2 MG PO (20:06)
[2020-11-22] MEDS: TRAMadol 50 mg Tablet PO (23:12)
[2020-11-23] VITALS (85 sets, daily range): BP systolic 126–205; BP diastolic 71–109; PULSE 65–100; RESP 15–45; TEMP 36.2–36.6; O2SAT 53–100; BMI 19.7
[2020-11-23] MEDS: labetalol 5 mg/mL SDV 20mL 10 MG IVP ×3 (02:06→14:10)
[2020-11-23 05:19] LABS: Alanine Aminotransferase 9 U/L (0-33); Albumin Level 3.7 g/dL (3.5-5.2); Alkaline Phosphatase 136 IU/L (35-105); Anion Gap 20.3 (5-19); Aspartate Amino Transferase 12 U/L (0-32); Blood Urea Nitrogen 6 mg/dL (8-23); Carbon Dioxide 21 mmol/L (22-29); Chloride 103 mmol/L (98-107); Globulin 2.8 g/dL (1.3-4.6); Glucose 99 mg/dL (65-115); Magnesium 1.5 mg/dL (1.7-2.3); Osmolality Calculated 290 mOsm/kg (285-295); Potassium 3.3 mmol/L (3.5-5.1); Sodium 141 mmol/L (136-145); Total Bilirubin 0.4 mg/dL (0.15-1.2); Total Protein 6.5 g/dL (6.6-8.7)
[2020-11-23] MEDS: magnesium sulfate premix 2 GM/50 ML PIGGYBACK IV (07:47)
[2020-11-23] MEDS: TRAMadol 50 mg Tablet PO ×2 (07:48→17:53)
[2020-11-23] MEDS: potassium chloride ER 20 mEq Tablet 40 MEQ PO ×2 (07:49→14:15)
[2020-11-23] MEDS: pantoprazole DR 40 mg Tablet PO ×3 (07:50→17:50)
--- NOTE | 2020-11-23 08:22 | P.PN_ITS ---
Subjective Subjective: Interval history: Patient reports doing okay. Reports that she continues to have abdominal pain although exam is benign. She has been very hypertensive and received labetalol. She denies chest pain or shortness of breath. She is scheduled for MRI later today. She had not been evaluated by speech therapy yet. Her potassium and magnesium slightly low. Patient's medic ation list shows prednisone which was prescribed in September by Dr. Gabrielle Crawley with instruction to taper over 9 days. Vitals/I&O/Wt Last Vital Signs Temp 97.2 F L 11/23/20 04:00 Pulse 98 11/23/20 08:00 Resp 29 H 11/23/20 08:00 BP 201/100 11/23/20 08:00 Pulse Ox 100 11/23/20 08:00 11/22/20 11/23/20 11/23/20 22:59 06:59 14:59 Intake Total 150 / 1150 Output Total 1200 / 1200 Balance -1050 / -50 Weight last 48 hrs Weight 48.988 kg Weight 48.988 kg Physical Exam Narrative: EXAM NARRATIVE: Lungs with overall decreased air movement but otherwise clear. Heart is regular. Abdomen is soft and appears nontender. Nondistended with positive bowel sounds. No lower extremity edema. Data : 11/22/20 13:30 11/23/20 03:33 A&P Assessment and plan (1) Acute delirium: This appears to be related to opioid medications. Stroke cannot be ruled out Status: Acute (2) COPD (chronic obstructive pulmonary disease): Not in exacerbation Status: Acute (3) Dehydration: Status: Acute Additional A&P Information PLAN: Patient to have physical, occupational and speech therapy. Restart home medications including metoprolol and antipsychotics. Awaiting MRI, echocardiogram and gallbladder ultrasound. Replete electrolytes. Attestations Medical Necessity Statement*: Patient is currently on observation status. Awaiting MRI and depending on progress with therapy we may possibly dismiss patient home later today unless safety in question at that time patient status may need to be changed to inpatient if she stays hospitalized. Time Spent in Patient Care: 16 - 35 minutes Coding Level of Care Code Acute Soaping Department Supervisor for Maria Del Carmen Jacinto Diagnoses Acute delirium R41.0 COPD (chronic obstructive pulmonary disease) J44.9 Dehydration E86.0
[2020-11-23] MEDS: atorvastatin 40 mg Tablet 20 MG PO (08:57)
[2020-11-23] MEDS: cyanocobalamin 1,000 mcg/mL SDV 1000 MCG IM (08:59)
[2020-11-23] MEDS: fluticasone nasal spray 16gm Btl 1 SPRAY INTRANASAL (08:59)
[2020-11-23] MEDS: cetirizine 10 mg Tablet PO (09:00)
[2020-11-23] MEDS: citalopram 20 mg Tablet PO (09:00)
[2020-11-23] MEDS: montelukast sodium 10 mg Tablet PO (09:00)
[2020-11-23] MEDS: metoprolol tartrate 50 mg Tablet PO ×2 (09:03→20:42)
[2020-11-23] MEDS: gabapentin 300 mg Capsule 600 MG PO ×3 (09:03→20:41)
--- NOTE | 2020-11-23 09:23 | PC.CHAP ---
Pastoral Care Encounter/Spiritual Assessment Type of Contact [] Declined manager of construction visit [] Patient/Family/Request visit [] Outpatient visit [] Follow-up visit [] Physician referral [] Code/Alert [x] Routine visit [] Staff referral [] Actively dying [] Patient sleeping [] Family support [] [] Out of room [] Palliative care [] [] Receiving care in room [] Pre-surgical visit [] Trauma [] Long length of stay [x] ICU visit [] Other: Relational/Emotional Strength [] Patient feels connected with others/family/visitors/staff [] Distress [] Loneliness/isolation [] Abandonment Spirituality of Patient [] Person of Jolie [] Attends Islam of their Jolie [] Believes in Prayer [] Reads Bible or Mandaeism materials [] There are Spiritual issues to be addressed Apparel Pattern Maker Interventions [x] Prayer [] Active listening [] Non-anxious presence [] Spiritual/emotional support [] Crisis/trauma care [] Spiritual counseling [] Bereavement support [] Provided bereavement packet [] Provided Bible/devotional materials [] Provided toy/stuffed animal, coloring book to patient or family member [] Provided Communion [] Anointing/[place] [] Salvation [x] Completed spiritual assessment [] Other: Impact on Illness or Injury [] Angry [] Fearful [] Anxious [] Often cries [] Exhaustion [] Unable to work [] Unable to attend holiness [] Unable to walk/stand [] Unable to read [] Unable to drive [] Unable to eat/drink [] Unable to sleep [] Unable to be with family [] Patient intubated [] Other: Summary Time spent with patient
[2020-11-23] MEDS: lurasidone 20 mg Tablet 40 MG PO (10:10)
[2020-11-23 11:36] LABS: Basophils # 0.1 10^3/uL (0.0-0.1); Basophils % 0.9 %; Eosinophils % 0.2 %; Lymphocytes # 1.5 10^3/uL (0.8-4.8); Lymphocytes % 14.6 %; Mean Corpuscular HGB Conc 32.5 g/dL (30.0-36.0); Mean Corpuscular Hemoglobin 31.9 pg (28.0-34.0); Mean Corpuscular Volume 98.3 fL (81-99); Mean Platelet Volume 10.1 fL (7.4-10.4); Monocytes # 1.1 10^3/uL (0.2-0.9); Monocytes % 10.1 %; Neutrophils # 7.67 10^3/uL (1.8-7.7); Neutrophils % 73.9 %; Nucleated Red Blood Cells % 0 %; Platelet Count 332 10^3/cmm (130-400); Red Blood Count 4.07 10^6/uL (4.1-5.3); Red Cell Distribution Width 13.7 % (12.1-15.1); White Blood Count 10.4 10^3/uL (4.0-10.0)
[2020-11-23] MEDS: lisinopril 10 mg Tablet PO (15:02)
[2020-11-23] MEDS: D5-NS 0.45% + KCL 20 mEq 20 MEQ/1,000 ML BAG 50 MEQ IV (16:03)
--- NOTE | 2020-11-23 16:29 | PC.RESP ---
Smoking Cessation and Pulmonary Rehab information sent to patient.
--- NOTE | 2020-11-23 17:08 | USCV_ITS ---
Felipa Winslow Age: 65 Gender: F : 1955 Exam Date: 11/23/2020 06:13 Ordering Phys: Carlitos Vo MD Technologist: Evonne aPtel Exam Location: [facility] [place]_ Indication: MV REPLACED CHEST PAIN CHF BP: 198 / 96 HR: 89 Rhythm: Sinus Technical Quality: Adequate MEASUREMENTS (Male / Female) Normal Values 2D ECHO LV Diastolic Diameter PLAX 3.6 cm 4.2 - 5.9 / 3.9 - 5.3 cm LV Systolic Diameter PLAX 2.4 cm LV Chamber Size 2.9 cm IVS Diastolic Thickness 0.9 cm 0.6 - 1.0 / 0.6 - 0.9 cm IVS Systolic Thickness 1.1 cm LVPW Diastolic Thickness 1.1 cm 0.6 - 1.0 / 0.6 - 0.9 cm LVPW Systolic Thickness 1.4 cm RV Chamber Size 3.5 cm LVOT Diameter 2.1 cm LV Ejection Fraction 2D Teich 63.2 % LV Ejection Fraction MOD 2C 64.9 % LV Ejection Fraction 2C AL 65.8 % LA Diameter 3.1 cm LA Width 2.5 cm LA Height 2.9 cm RA Width 3.5 cm RA Height 4.1 cm Aorta at Sinotubular Diameter 2.6 cm M-MODE LV Diastolic Diameter MM 4.3 cm 4.2 - 5.9 / 3.9 - 5.3 cm LV Systolic Diameter MM 2.8 cm LV Ejection Fraction MM Teich 63.7 % IVS Diastolic Thickness MM 1.4 cm 0.6 - 1.0 / 0.6 - 0.9 cm IVS Systolic Thickness MM 1.5 cm LVPW Diastolic Thickness MM 1.3 cm 0.6 - 1.0 / 0.6 - 0.9 cm LVPW Systolic Thickness MM 1.1 cm RV Diastolic Diameter MM 1.0 cm Aortic Annulus Diameter 2.9 cm LA Ao Ratio MM 1.1 MV E Point Septal Separation 1.9 cm DOPPLER AV Peak Velocity 173.3 cm/s LVOT Peak Velocity 74.7 cm/s AV Area Cont Eq vti 1.7 cm squared AV Area Cont Eq pk 1.5 cm squared MV Area PHT 6.5 cm squared Mitral E to A Ratio 1.1 MV E' Velocity 107.0 cm/s Mitral E to MV E' Ratio 18.3 Mitral E to LV E' Lateral Ratio 17.6 Mitral E to LV E' Septal Ratio 19.0 TR Peak Velocity 327.5 cm/s TR Peak Gradient 42.9 mmHg TR Mean Velocity 297.6 cm/s TR Mean Gradient 37.7 mmHg TR Velocity Time Integral 100.4 cm TV Peak E Velocity 71.0 cm/s Right Atrial Pressure 3.0 mmHg Pulmonary Artery Systolic Pressu 45.9 mmHg PV Peak Velocity 73.0 cm/s RV Acceleration Time 0.1 s RV Ejection Time 0.3 s RV AcT/ET 0.4 FINDINGS Left Ventricle Normal LV size and ejection fraction of around 60%. Somewhat dyskinetic basal septal segment.Grade II/IV diastolic dysfunction, moderately elevated filling pressures. Right Ventricle Normal right ventricular size and systolic function. Right Atrium Normal right atrial size. Left Atrium Mildly increased left atrial size. Mitral Valve The bioprosthetic valve in the mitral position appears to be well-seated. The mitral leaflets are thickened. The peak velocity at the mitral valve was 1.08 m/ second . Multiple echodensities are noted in the mitral annulus.trace to mild mitral valve regurgitation. Aortic Valve Thickened with some restriction of mobility Tricuspid Valve Moderate tricuspid valve regurgitation. Estimated pulmonary artery peak systolic pressure was 46 mmHg Pulmonic Valve Pulmonic valve not well visualized. Pericardium Normal pericardium without effusion. Aorta Normal aortic annulus size. Minimal plaques in the ascending aorta CONCLUSIONS Bioprosthetic valve at the mitral position appears to be well seated with a peak velocity of 1.08 m/s. Mitral valve area by pressure half-time was calculated to be 6.5 cm squared. Features of aortic valve sclerosis. Normal LV size ejection fraction 60%. Type II diastolic dysfunction. Wall motion normalities as mentioned above. Moderate tricuspid valve regurgitation. Estimated pulmonary artery peak systolic pressure of 46 mmHg. Trace to mild mitral valve regurgitation. There is no pericardial effusion. Compared to the previous study from 07/09/2018, the gradient across the mitral valve appears to be less. There is development of mild pulmonary hypertension Dr Wei Donald MD [facility] (Electronically Signed) Final Date: 23 November 2020 19:04 S
--- NOTE | 2020-11-23 17:18 | US_ITS ---
WS: [id number] ULTRASOUND ABDOMEN LIMITED CLINICAL INFORMATION: abdominal pain COMPARISON: None. FINDINGS: Technically difficult examination Liver Size: Normal. Craniocaudal length: 15.0 cm. Echogenicity: Normal. Surface nodularity: None. Mass (size and location): None. Bile ducts Intrahepatic ducts: Normal. Common bile duct diameter: 0.65 cm. Gallbladder Contracted Gallstones: None. Gallbladder sludge: None. Gallbladder wall thickening: None. Pericholecystic fluid: None. Sonographic Sadler sign: Absent. Pancreas Normal as visualized. Right kidney: Normal. Hydronephrosis: None. Size: 9.2 cm x 3.1 cm x 4.5 cm. Abdominal aorta and IVC Visualized portions are normal. Ascites: None. US/US gall bladder [id number] IMPRESSION: Technically difficult examination. Normal abdominal ultrasound
[2020-11-23] MEDS: enoxaparin 40 mg/0.4 mL Syringe SUBCUT (17:50)
[2020-11-23] MEDS: sennosides 8.6 mg Tablet 17.2 MG PO (20:42)
[2020-11-24] VITALS (24 sets, daily range): BP systolic 132–190; BP diastolic 62–102; PULSE 61–77; RESP 14–31; TEMP 36.6–36.8; O2SAT 93–98; BMI 19.7
[2020-11-24] MEDS: TRAMadol 50 mg Tablet PO ×3 (03:17→20:31)
[2020-11-24 03:58] LABS: Basophils # 0.1 10^3/uL (0.0-0.1); Basophils % 0.8 %; Eosinophils # 0.1 10^3/uL (0.0-0.8); Eosinophils % 0.8 %; Hematocrit 41.7 % (37.0-47.0); Hemoglobin 13.2 g/dL (11.5-15.3); Lymphocytes # 2.3 10^3/uL (0.8-4.8); Lymphocytes % 23.7 %; Mean Corpuscular HGB Conc 31.7 g/dL (30.0-36.0); Mean Corpuscular Hemoglobin 31.6 pg (28.0-34.0); Mean Corpuscular Volume 99.8 fL (81-99); Mean Platelet Volume 10.1 fL (7.4-10.4); Monocytes # 1.2 10^3/uL (0.2-0.9); Monocytes % 12.9 %; Neutrophils # 5.83 10^3/uL (1.8-7.7); Neutrophils % 61.5 %; Nucleated Red Blood Cells % 0 %; Platelet Count 320 10^3/cmm (130-400); Red Blood Count 4.18 10^6/uL (4.1-5.3); White Blood Count 9.5 10^3/uL (4.0-10.0)
[2020-11-24 04:24] LABS: Alanine Aminotransferase 7 U/L (0-33); Albumin Level 3.5 g/dL (3.5-5.2); Alkaline Phosphatase 138 IU/L (35-105); Anion Gap 13.8 (5-19); Aspartate Amino Transferase 10 U/L (0-32); Blood Urea Nitrogen 4 mg/dL (8-23); Calcium 8.8 mg/dL (8.5-10.5); Carbon Dioxide 24 mmol/L (22-29); Chloride 104 mmol/L (98-107); Globulin 2.7 g/dL (1.3-4.6); Glucose 109 mg/dL (65-115); Osmolality Calculated 283 mOsm/kg (285-295); Potassium 3.8 mmol/L (3.5-5.1); Sodium 138 mmol/L (136-145); Total Bilirubin 0.4 mg/dL (0.15-1.2); Total Protein 6.2 g/dL (6.6-8.7)
--- NOTE | 2020-11-24 08:10 | PC.NURSE ---
recd. a/o to person, yr./date.
[2020-11-24] MEDS: atorvastatin 40 mg Tablet 20 MG PO (09:06)
[2020-11-24] MEDS: cetirizine 10 mg Tablet PO (09:06)
[2020-11-24] MEDS: pantoprazole DR 40 mg Tablet PO ×2 (09:06→17:44)
[2020-11-24] MEDS: lisinopril 10 mg Tablet PO (09:06)
[2020-11-24] MEDS: lurasidone 20 mg Tablet 40 MG PO ×2 (09:07→09:09)
[2020-11-24] MEDS: montelukast sodium 10 mg Tablet PO (09:07)
[2020-11-24] MEDS: fluticasone nasal spray 16gm Btl 1 SPRAY INTRANASAL (09:10)
[2020-11-24] MEDS: citalopram 20 mg Tablet PO (09:11)
[2020-11-24] MEDS: metoprolol tartrate 50 mg Tablet PO ×2 (09:21→21:28)
[2020-11-24] MEDS: gabapentin 300 mg Capsule 600 MG PO ×3 (09:22→21:28)
--- NOTE | 2020-11-24 09:33 | PC.CHAP ---
Pastoral Care Encounter/Spiritual Assessment Type of Contact [] Declined director of strategy & mobile visit [] Patient/Family/Request visit [] Outpatient visit [] Follow-up visit [] Physician referral [] Code/Alert [x] Routine visit [] Staff referral [] Actively dying [] Patient sleeping [] Family support [] [] Out of room [] Palliative care [] [] Receiving care in room [] Pre-surgical visit [] Trauma [] Long length of stay [x] ICU visit [] Other: Relational/Emotional Strength [] Patient feels connected with others/family/visitors/staff [] Distress [] Loneliness/isolation [] Abandonment Spirituality of Patient [] Person of Jolie [] Attends Moravian of their Jolie [] Believes in Prayer [] Reads Bible or Judaism materials [] There are Spiritual issues to be addressed Pulverizer Mill Operator Interventions [x] Prayer [] Active listening [] Non-anxious presence [] Spiritual/emotional support [] Crisis/trauma care [] Spiritual counseling [] Bereavement support [] Provided bereavement packet [] Provided Bible/devotional materials [] Provided toy/stuffed animal, coloring book to patient or family member [] Provided Communion [] Anointing/[place] [] Salvation [x] Completed spiritual assessment [] Other: Impact on Illness or Injury [] Angry [] Fearful [] Anxious [] Often cries [] Exhaustion [] Unable to work [] Unable to attend sikhism [] Unable to walk/stand [] Unable to read [] Unable to drive [] Unable to eat/drink [] Unable to sleep [] Unable to be with family [] Patient intubated [] Other: Summary Time spent with patient
--- NOTE | 2020-11-24 09:52 | PC.NURSE ---
incontinent of stool. no urine. had been on bedpan this am with no stool or urine. assisted up to chair after bath.
--- NOTE | 2020-11-24 09:55 | PC.NURSE ---
has c/o a #10 pain all am. no frowns, grimaces or pain to touch. states abd., then chest. requesting oxycodone.
--- NOTE | 2020-11-24 09:59 | PC.NURSE ---
remains up in chair.
--- NOTE | 2020-11-24 10:15 | MR_ITS ---
WS: [id number] MRI HEAD WITHOUT CONTRAST TECHNIQUE: Sagittal T1, T2 axial, T2 axial FLAIR, axial and coronal T1 images, axial susceptibility w eighted imaging, axial diffusion weighted images, and coronal T2 images were obtained. CLINICAL INFORMATION: stroke like signs and symptoms COMPARISON: CT November 22, 2020 FINDINGS: No evidence of restricted diffusion to suggest acute ischemia. Ventricular system and basal cisterns are patent. Advanced small vessel changes. Moderate parenchymal volume loss. Volume loss worse in the parietal lobes. Chronic lacunar infarcts in the cerebellum bilaterally. Normal vascular flow voids a t the skull base. No extra-axial fluid collections. Mild central canal stenosis in the upper cervical spine. No hemosiderin on the susceptibly weighted images. Normal optic chiasm and pituitary infundibulum. Moderate symmetric atrophy involving the temporal lob es and hippocampal formations. MR/MR head wo con* [id number] IMPRESSION: 1. No evidence of restricted diffusion to suggest acute ischemia. 2. Advanced small vessel changes with moderate parenchymal volume loss worse i n the parietal lobes. Small vessel changes in the seng. 3. Chronic lacunar infarcts in the cerebellum bilaterally. 4. Paranasal sinuses and mastoid air cells well aerated.
--- NOTE | 2020-11-24 12:08 | PC.NURSE ---
sherman. elisabet dillon.
[2020-11-24] MEDS: D5-NS 0.45% + KCL 20 mEq 20 MEQ/1,000 ML BAG 50 MEQ IV (12:27)
--- NOTE | 2020-11-24 12:28 | PC.NURSE ---
iv fluids late d/t pt. in mri.
--- NOTE | 2020-11-24 13:21 | PC.NURSE ---
gabapentin at this time d/t am one time
--- NOTE | 2020-11-24 14:51 | P.PN_ITS ---
Subjective Subjective: Interval history: Patient appears to be doing better this morning. Continues to report pain when asked. Reports 10 out of 10 pain in her abdomen, chest, back, hips. She replied yes to every body part asked. When we were talking about her abdominal pain she replied that her gallbladder hurts. She does not appear to be in any distress. She exhibits drug-seeking behavior. MRI was performed this morning showing no evidence of acute stroke. Her home conditions are not suitable for safe living at this point and plan is to arrange placement to nursing facility. Vitals/I&O/Wt Last Vital Signs Temp 97.9 F 11/23/20 20:00 Pulse 61 11/24/20 12:00 Resp 18 11/24/20 12:00 BP 169/77 11/24/20 12:00 Pulse Ox 93 11/24/20 09:09 11/23/20 11/24/20 11/24/20 22:59 06:59 14:59 Intake Total 240 / 1650 100 / 1750 1420 / 1420 Output Total 4 / 4 Balance 236 / 1646 100 / 1746 1420 / 1420 Weight last 48 hrs Weight 48.988 kg Weight 48.988 kg Physical Exam Narrative: EXAM NARRATIVE: Lungs with overall decreased air movement but otherwise clear. Heart is regular. Abdomen is soft and appears nontender even on deep palpation. No guarding or rebound tenderness.. Nondistended with positive bowel sounds. No lower extremity edema. Data : 11/24/20 03:06 11/24/20 03:06 A&P Assessment and plan (1) Acute delirium: This appears to be related to opioid medications. Stroke cannot be ruled out Status: Acute (2) COPD (chronic obstructive pulmonary disease): Not in exacerbation Status: Acute (3) Dehydration: Status: Acute Additional A&P Information PLAN: Will trend cardiac enzymes and serial EKGs. We will transfer patient out of ICU. Continue with therapy Awaiting placement to nursing facility. Attestations Medical Necessity Statement*: Patient was generalized weakness and opioid induced delirium requires close inpatient monitoring and treatment until appropriate discharge arrangements are made. Coding Level of Care Code Acute Military Nurse for Maria Del Carmen Jacinto Diagnoses Acute delirium R41.0 COPD (chronic obstructive pulmonary disease) J44.9 Dehydration E86.0
--- NOTE | 2020-11-24 14:56 | ECG_ITS ---
[facility] Test Date: 2020-11-24 Pat Name: Felipa Winslow Department: Room: [facility] Gender: Female Car Pincher: : 1955 Requested By: Carlitos Vo Order Number: [id number] Shanice MD: Wei Donald M.D. Measurements Intervals [place] Rate: 63 P: 83 [place]: 130 QRS: -26 QRSD: 90 T: 23 QT: 478 QTc: 490 Interpretive Statements SINUS RHYTHM BORDERLINE LEFT AXIS DEVIATION [QRS AXIS < -20] MINIMAL ST DEPRESSION [0.025+ mV ST DEPRESSION] PROLONGED QT INTERVAL Compared to ECG 11/22/2020 15:52:01 Incomplete right bundle-branch block no longer present ST (T wave) deviation still present Electronically Signed On 11-24-2020 19:51:37 IMPLEMENTATION ANALYST by Wei Donald M.D. [id number]
[2020-11-24 16:23] LABS: Troponin(5th) Baseline 17 ng/L (0-10)
--- NOTE | 2020-11-24 16:56 | ECG_ITS ---
[facility] Test Date: 2020-11-24 Pat Name: Felipa Winslow Department: Room: [facility]04 Gender: Female History Tutor: : 1955 Requested By: Carlitos Vo Order Number: [id number] Shanice MD: Wei Donald M.D. Measurements Intervals [place] Rate: 67 P: 94 PA: 132 QRS: -22 QRSD: 86 T: 28 QT: 472 QTc: 501 Interpretive Statements SINUS RHYTHM BORDERLINE LEFT AXIS DEVIATION [QRS AXIS < -20] MINIMAL ST DEPRESSION [0.025+ mV ST DEPRESSION] PROLONGED QT INTERVAL Compared to ECG 11/24/2020 15:15:52 No significant changes Electronically Signed On 11-24-2020 19:54:58 JOURNEYMAN APPRENTICE ELECTRICIANS by Wei Donald M.D. [id number]
[2020-11-24] MEDS: enoxaparin 40 mg/0.4 mL Syringe SUBCUT (17:44)
[2020-11-24 17:46] LABS: Troponin 5 2HR 18.32 ng/L (0-10); Troponin 5 2HR Delta 1.32 ABS# (0-10)
--- NOTE | 2020-11-24 18:48 | PC.NURSE ---
transferred to rm 111/1 with clothing including coat with cigaretts. that was given to nurse.
[2020-11-24] MEDS: sennosides 8.6 mg Tablet 17.2 MG PO (20:32)
[2020-11-24 22:07] LABS: Troponin 5 6HR 18.45 ng/L (0-10); Troponin 5 6HR Delta 1.45 ng/L (0-12)
[2020-11-24] MEDS: acetaminophen 325 mg Tablet 650 MG PO (22:41)
[2020-11-24] MEDS: lanolin oint 7 gm 1 APPLIC TOPICAL (23:15)
[2020-11-25] VITALS (8 sets, daily range): BP systolic 108–129; BP diastolic 58–62; PULSE 52–80; RESP 15–18; TEMP 36.6–37; O2SAT 91–100; BMI 21.0
[2020-11-25 05:00] LABS: Basophils # 0.1 10^3/uL (0.0-0.1); Basophils % 1.3 %; Eosinophils # 0.2 10^3/uL (0.0-0.8); Eosinophils % 1.9 %; Hematocrit 39.2 % (37.0-47.0); Hemoglobin 12.7 g/dL (11.5-15.3); Lymphocytes # 2.8 10^3/uL (0.8-4.8); Lymphocytes % 34.2 %; Mean Corpuscular HGB Conc 32.4 g/dL (30.0-36.0); Mean Corpuscular Hemoglobin 31.8 pg (28.0-34.0); Monocytes # 0.9 10^3/uL (0.2-0.9); Neutrophils # 4.26 10^3/uL (1.8-7.7); Neutrophils % 51.4 %; Nucleated Red Blood Cells % 0 %; Platelet Count 285 10^3/cmm (130-400); Red Cell Distribution Width 13.7 % (12.1-15.1); White Blood Count 8.3 10^3/uL (4.0-10.0)
[2020-11-25 05:20] LABS: Alanine Aminotransferase < 5 U/L (0-33); Albumin Level 3.3 g/dL (3.5-5.2); Alkaline Phosphatase 120 IU/L (35-105); Anion Gap 11.9 (5-19); Aspartate Amino Transferase 8 U/L (0-32); Blood Urea Nitrogen 6 mg/dL (8-23); Calcium 8.8 mg/dL (8.5-10.5); Carbon Dioxide 24 mmol/L (22-29); Chloride 104 mmol/L (98-107); Globulin 2.4 g/dL (1.3-4.6); Glucose 86 mg/dL (65-115); Osmolality Calculated 279 mOsm/kg (285-295); Potassium 3.9 mmol/L (3.5-5.1); Sodium 136 mmol/L (136-145); Total Bilirubin 0.3 mg/dL (0.15-1.2); Total Protein 5.7 g/dL (6.6-8.7)
[2020-11-25] MEDS: lisinopril 10 mg Tablet PO (08:41)
[2020-11-25] MEDS: pantoprazole DR 40 mg Tablet PO (08:41)
[2020-11-25] MEDS: citalopram 20 mg Tablet PO (08:42)
[2020-11-25] MEDS: atorvastatin 40 mg Tablet 20 MG PO (08:42)
[2020-11-25] MEDS: montelukast sodium 10 mg Tablet PO (08:43)
[2020-11-25] MEDS: cetirizine 10 mg Tablet PO (08:43)
[2020-11-25] MEDS: metoprolol tartrate 50 mg Tablet PO (08:43)
[2020-11-25] MEDS: gabapentin 300 mg Capsule 600 MG PO ×2 (08:44→12:32)
[2020-11-25] MEDS: fluticasone nasal spray 16gm Btl 1 SPRAY INTRANASAL (08:45)
[2020-11-25] MEDS: TRAMadol 50 mg Tablet PO (10:00)
--- NOTE | 2020-11-25 11:15 | PM.PN ---
Subjective Subjective: Interval history: Patient is much more alert this morning. She denies abdominal or chest pain. She reports chronic neck and back pain. Denies shortness of breath. Vitals/I&O/Wt Last Vital Signs Temp 98.6 F 11/25/20 11:11 Pulse 58 L 11/25/20 11:11 Resp 18 11/25/20 11:11 BP 126/60 11/25/20 11:11 Pulse Ox 96 11/25/20 11:11 11/24/20 11/25/20 11/25/20 22:59 06:59 14:59 Intake Total 1800 / 3220 100 / 3320 360 / 360 Balance 1800 / 3220 100 / 3320 360 / 360 Weight last 48 hrs Weight 52.163 kg Weight 48.988 kg Physical Exam Narrative: EXAM NARRATIVE: Lungs with overall decreased air movement but otherwise clear. Heart is regular. Abdomen is soft and nontender. No lower extremity edema. Data : 11/25/20 04:26 11/25/20 04:26 A&P Assessment and plan (1) Acute delirium: This appears to be related to opioid medications. Stroke cannot be ruled out Status: Acute (2) COPD (chronic obstructive pulmonary disease): Not in exacerbation Status: Acute (3) Dehydration: Status: Acute Additional A&P Information PLAN: Continue physical therapy. Awaiting placement to nursing facility. Attestations Medical Necessity Statement*: Patient with generalized weakness requires inpatient monitoring and treatment until placement to [place] is arranged. Coding Level of Care Code Acute Shake Splitter for [facility] Jacinto Diagnoses Acute delirium R41.0 COPD (chronic obstructive pulmonary disease) J44.9 Dehydration E86.0
--- NOTE | 2020-11-25 13:27 | PM.DCS ---
Discharge Providers Date of Admission: 11/23/20 14:15 Date of Discharge: November 25, 2020 Attending Provider at Admission: Carlitos Vo MD Attending Provider at Discharge: Carlitos Vo MD Primary Care Provider: Debra Monet DO Diagnoses at Discharge Discharge Diagnosis (1) Acute delirium: Status: Acute Permanent problem details: Concern for substance abuse and/or unintentional opiate overdose. (2) COPD (chronic obstructive pulmonary disease): Status: Acute Permanent problem details: Not in exacerbation (3) Dehydration: Status: Acute Permanent problem details: Improved with hydration. Reason for Visit Reason for Visit: AMS Hospital Course Hospital Course Patient presented with altered mental status which felt to be related to substance use versus unintentional opiate overdose. Patient was admitted and monitored and treated supportively. She was started on lisinopril and her blood pressure nicely improved. 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 Patient gradually improved and this morning denies any chest pain or abdominal pain. She is much more alert and reports that she only has her chronic neck and back pain. Patient was evaluated and placement to residential facility was recommended. Patient agreed to proceed. Patient agreed to try nicotine patch. This morning she denied any shortness of breath. Overall she made very good recovery. I will prescribe patient tramadol and provide 20 tablets with recommendation to follow-up with pain clinic. I had extensive discussion regarding importance of medical compliance and to make sure she does not take her pain medications more than prescribed and also to avoid any other illicit drugs and nonprescription medications. COVID-19 test will be ordered and if negative patient will be dismissed later today to residential facility. Physical Exam Narrative: EXAM NARRATIVE: Her lungs are clear and heart is regular. No lower extremity edema. Abdomen is soft and nontender with positive bowel sounds. Discharge Data Data Completed and Pending: Completed Studies During Hospitalization Category Date Time Status CT angio headneck * [id number] Stat Cat Scan 11/22/20 15:[address] head wo con* [id number] Urgent Cat Scan 11/22/20 13:16 Completed XR chest 1V [place] ble [id number] Urgent Exams 11/22/20 13:16 Completed MR head wo con* 7 [id number] Routine MRI 11/24/20 10:15 Completed CV echo complete* [id number] Routine Ultrasound 11/23/20 17:08 Completed US gall bladder 7 [id number] Routine Ultrasound 11/23/20 17:18 Completed Pending at discharge Category Date Time Status SARS Covid-2 Anti gen Routine Lab 11/25/20 13:05 Uncollected Sputum Culture an d Gram Stain Routi ne Lab 11/22/20 17:08 Uncollected Labs from last 24 hours 11/25/20 11/25/20 11/24/20 04:26 04:26 21:00 WBC 8.3 RBC 4.00 L Hgb 12.7 Hct 39.2 MCV 98.0 MCH 31.8 MCHC 32.4 RDW 13.7 Plt Count 285 MPV 10.0 Neut % (Auto) 51.4 Lymph % (Auto) 34.2 [place] % (Auto) 11.0 Eos % (Auto) 1.9 Baso % (Auto) 1.3 Neut # (Auto) 4.26 Lymph # (Auto) 2.8 [place] # (Auto) 0.9 Eos # (Auto) 0.2 Baso # (Auto) 0.1 Nucleated RBC % (a uto) 0 Nucleated RBCs # 0.0 Sodium 136 Potassium 3.9 Chloride 104 Carbon Dioxide 24 Anion Gap 11.9 BUN 6 L Creatinine 0.8 GFR Calculation 72.0 L Glucose 86 Calculated Osmolal ity 279 L Calcium 8.8 Total Bilirubin 0.3 AST 8 ALT < 5 Alkaline Phosphata se 120 H Troponin T Baselin e Troponin T 120 Min sun'aq Delta Troponin T Troponin T Hi Sens 6Hr 18.45 H Troponin T Hi Sens 6Hr Delta 1.45 Total Protein 5.7 L Albumin 3.3 L Globulin 2.4 11/24/20 11/24/20 17:09 15:30 WBC RBC Hgb Hct MCV MCH MCHC RDW Plt Count MPV Neut % (Auto) Lymph % (Auto) [place] % (Auto) Eos % (Auto) Baso % (Auto) Neut # (Auto) Lymph # (Auto) [place] # (Auto) Eos # (Auto) Baso # (Auto) Nucleated RBC % (a uto) Nucleated RBCs # Sodium Potassium Chloride Carbon Dioxide Anion Gap BUN Creatinine GFR Calculation Glucose Calculated Osmolal ity Calcium Total Bilirubin AST ALT Alkaline Phosphata se Troponin T Baselin e 17 H Troponin T 120 Min sun'aq 18.32 H Delta Troponin T 1.32 Troponin T Hi Sens 6Hr Troponin T Hi Sens 6Hr Delta Total Protein Albumin Globulin Vitals: Last Vital Signs Temp 98.6 F 11/25/20 11:11 Pulse 58 L 11/25/20 11:11 Resp 18 11/25/20 11:11 BP 126/60 11/25/20 11:11 Pulse Ox 96 11/25/20 11:11 Discharge Plan Discharge Patient Disposition: Xfer SNF Condition: Stable Prescriptions: New tramadol 50 mg Tablet 50 mg PO Q8H PRN (Reason: Moderate Pain) Qty: 20 RF: 0 lisinopril 10 mg Tablet 10 mg PO DAILY Qty: 30 RF: 0 nicotine 14 mg/24 hr patch 24 hour 1 patch transdermal DAILY Qty: 14 RF: 0 Continued azelastine 137 mcg (0.1 %) aerosol,spray 2 spray INTRANASAL BID RF: 0 acetaminophen 500 mg tablet 500 - 1,000 mg PO TID PRN (Reason: Pain) RF: 0 melatonin 5 mg capsule 5 mg PO BEDTIME PRN (Reason: Sleep) RF: 0 celecoxib 200 mg capsule 200 mg PO DAILY@1000 RF: 0 (DME) Fast Form Cock up Splint See Rx Instructions .ROUTE .MEDSUPPLY Qty: 1 RF: 0 fluticasone propionate [Flonase Allergy Relief] 50 mcg/actuation spray,suspension 1 spray INTRANASAL DAILY Qty: 16 RF: 4 atorvastatin 20 mg tablet 20 mg PO DAILY Qty: 6 RF: 0 albuterol sulfate [ProAir HFA] 90 mcg/actuation HFA aerosol inhaler 2 puff INHALATION BID PRN (Reason: shortness of breath or wheezing) Qty: 18 RF: 3 promethazine 25 mg tablet 25 mg PO DAILY PRN (Reason: nausea and vomiting) Qty: 30 RF: 2 cyclobenzaprine 10 mg tablet 10 mg PO Q8H PRN (Reason: muscle spasm) Qty: 90 RF: 2 gabapentin 600 mg tablet 600 mg PO TID@1000,1200,2200 RF: 0 Zyrtec 10 mg tablet 10 mg PO DAILY@1000 RF: 0 citalopram 20 mg tablet 20 mg PO DAILY@1000 RF: 0 pantoprazole 40 mg tablet,delayed release (DR/EC) 40 mg PO DAILY@1000 RF: 0 cyanocobalamin (vitamin B-12) 1,000 mcg/mL solution 1,000 mcg IM Q30D RF: 0 metoprolol tartrate 50 mg tablet 50 mg PO BID@1000,2200 RF: 0 montelukast 10 mg tablet 10 mg PO DAILY@1000 RF: 0 buspirone 15 mg tablet 15 mg PO DAILY@1000 RF: 0 Latuda 40 mg tablet 40 mg PO DAILY RF: 0 Discontinued prednisone 20 mg tablet 60 mg PO DAILY 9 Days Qty: 18 RF: 0 tramadol 50 mg tablet 50 mg PO TID PRN (Reason: pain) Qty: 90 RF: 1 Discharge Orders: Discharge Order (Routine); Ordered 11/25/20 Ordered By: Carlitos Vo Referrals: Debra Monet DO [Primary Care Provider] - 4-7 days Discharge Diet: Usual diet Discharge Activity: Increase activity as tolerated Patient Instructions: Self Care Measures After a Stroke (DC) Activity Restrictions/Additional Instructions: Please call your doctor or present to emergency department if your condition worsens or you develop diarrhea, lightheadedness, fatigue or see blood in your stool or black stool. Please follow-up with pain clinic for medication adjustment and recommendations. Discharge Attestations Time Spent in Discharge Care*: greater than 30 min Quality Metrics Clinical Quality Measures During this hospital stay, did patient experience: None Coding Level of Care Code Acute Lithographic General Worker for [facility] Del [facility] Jacinto Diagnoses Acute delirium R41.0 COPD (chronic obstructive pulmonary disease) J44.9 Dehydration E86.0
[2020-11-25 15:06] LABS: SARS Covid-2 Antigen Negative (Negative)
--- NOTE | 2020-11-25 17:19 | PC.NURSE ---
Pt discharged to halfway. Pts IV removed no redness or swelling noted. Pts discharge instructions given along with prescriptions and follow up appointment. Report was called to nurse [place]. Pt had no c/o pain or discomfort at the time of discharge.
== END 2020-11-25 17:00 | disposition skilled nursing facility (03) | DRG 918 ==
LOC: ER 17:00 → ICU 23:26 → CSU 11-24 18:32
PROVIDERS: Admitting Provider Internal Medicine; Emergency Provider Family Medicine; PCP Family Medicine; Visit Provider Internal Medicine
DX: T40.2X1A Poisoning by other opioids, accidental (unintentional), initial encounter (principal); R41.0 Disorientation, unspecified; G89.29 Other chronic pain; F17.210 Nicotine dependence, cigarettes, uncomplicated; J44.9 Chronic obstructive pulmonary disease, unspecified; K21.9 Gastro-esophageal reflux disease without esophagitis; M54.17 Radiculopathy, lumbosacral region; M48.062 Spinal stenosis, lumbar region with neurogenic claudication; Z98.1 Arthrodesis status; Z95.3 Presence of xenogenic heart valve; E86.0 Dehydration; Z86.73 Personal history of transient ischemic attack (TIA), and cerebral infarction without residual deficits; Z79.51 Long term (current) use of inhaled steroids
CPT/HCPCS: 12345; 36415; 70450; 70496; 70498; 70551; 71045; 76705; 80053; 80306; 80307; 81003; 83605; 83735; 83880; 84484; 85025; 87426; 92523; 92526; 92610; 93005; 93306; 96372; 97116; 97162; 97167; 97530; 97535; 99282; G0378; J1650; J1956; J3420; J3475; J3490; J7030; Q9967

== ENCOUNTER 2021-03-08 12:47 | Emergency (ER) | payer MEDICARE, MEDICAID, SELFPAY ==
[2021-03-08 12:51] VITALS: BP 113/57; PULSE 78; RESP 14; TEMP 36.4; O2SAT 98; BMI 19.3
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
[2021-03-08 13:16] VITALS: RESP 16
[2021-03-08] MEDS: morphine 4 mg/mL SDV 1 mL 2 MG IVP (13:16)
--- NOTE | 2021-03-08 13:23 | CT_ITS ---
WS: [id number] CT CHEST, ABDOMEN AND PELVIS WITHOUT CONTRAST. HISTORY: trauma TECHNIQUE: Contiguous 5 mm axial imaging performed through the chest, abdomen and pelvis without IV c ontrast, oral contrast has not been provided. Coronal and sagittal reformats chest. Coronal and sagit mikayla reformats through the abdomen and pelvis. All CT scans at [facility] use at least one of these dose optimization techniques: automated exposure control; mA and/or kV adjustment per patie nt size (includes targeted exams where dose is matched to clinical indication); or iterative reconstr uction. CONTRAST: None DLP: 909.88 mGy.cm COMPARISON: 04/27/[address]: Mild hyperexpansion. Prior granulomatous disease. No pneumothorax or pulmonary contusion. N o pneumonia. Prior CABG. Prior mitral valve replacement. No fractures identified. Abdomen CT: Hepatic and splenic granulomatous. Normal gallbladder. Pancreatic atrophy, otherwise poor ly visualized pancreas. No adrenal mass. Kidneys are mildly atrophic bilaterally with no obstruction. Heavy calcification within the aorta. No adenopathy or free fluid. Visualized GI tract is negative. Pelvic CT: Moderately distended urinary bladder. No free fluid or pelvic mass. Severe degenerative disc disease at L4-5 and L5-S1. Grade 2 anterolisthesis of L4. Very mild anterior wedging of L2 is remote, also present on study from 2017. CT/CT chest abd pel wo con IMPRESSION: 1. No acute chest, abdomen or pelvic abnormalities. This unenhanced study has decreased sensitivity for subtle abnormalities associated with the recent traum a. 2. No visceral organ injury. 3. Chronic L2 fracture.
--- NOTE | 2021-03-08 13:23 | CT_ITS ---
WS: [id number] CT FACIAL BONES HISTORY: trauma TECHNIQUE: Images obtained from the supraorbital location through the mandible. Soft tissue and bone windows are reviewed. Coronal and sagittal reformats have also been submitted. DLP: 794.[address] scans at [facility] use at least one of these dose optimization techniques: automat ed exposure control; mA and/or kV adjustment per patient size (includes targeted exams where dose is matched to clinical indication); or iterative reconstruction. COMPARISON: None available. No facial bone fractures. Mandible is intact. Zygomatic arches and nasal bones are normal. No soft ti ssue abnormalities. C4 anterolisthesis by [address]/CT facial bones wo con* [id number] IMPRESSION: Negative facial bone CT.
--- NOTE | 2021-03-08 13:23 | CT_ITS ---
WS: [id number] CT CERVICAL SPINE HISTORY: trauma TECHNIQUE: Contiguous 2.5 mm axial imaging performed through the entire cervical spine. Sagittal and coronal reformats also performed. All CT scans at [facility] use at least one of these do se optimization techniques: automated exposure control; mA and/or kV adjustment per patient size (inc ludes targeted exams where dose is matched to clinical indication); or iterative reconstruction. DLP: 318.95 mGy.cm COMPARISON: 06/24/2020 Stable 5 mm anterolisthesis of C4. Degenerative disc disease and facet arthritis throughout the cervi ania spine. No acute fractures are identified. The alignment and the disc space narrowing and facet talita int alignment is similar to the prior studies. Craniocervical junction is normal. C1 and C2 are align ed. Lateral masses are aligned. No abnormality at the lung apices. Multilevel facet joint arthritis and moderate to severe bilateral foraminal stenosis throughout the c ervical spine. CT/CT cervical spin wo con* [id number] IMPRESSION: 1. No acute cervical spine fracture. 2. Grade 1 anterolisthesis of C4. 3. Osteopenia and advanced facet disease. No change since 06/24/2020.
--- NOTE | 2021-03-08 13:23 | CT_ITS ---
WS: [id number] CT HEAD NONCONTRAST HISTORY: trauma TECHNIQUE: Contiguous axial imaging performed through the brain in 2.5 mm imaging. Bone and soft tiss ue windows. Sagittal and coronal reformats reviewed. All CT scans at [facility] use at ast one of these dose optimization techniques: automated exposure control; mA and/or kV adjustment pe r patient size (includes targeted exams where dose is matched to clinical indication); or iterative r econstruction. DLP: 813.46 mGy.cm COMPARISON: 05/11/2021 No acute intracranial hemorrhage, midline shift or mass effect. Mild atrophy and mild chronic microvascular ischemic disease. Prior lacunar infarct in the LEFT centr um semiovale ovale. Ventricles: Normal size with no hydrocephalus. Paranasal sinuses: As visualized are clear. Mastoid air cells: Well pneumatized. Calvarium and scalp: Skull is intact with no soft tissue edema or swelling. CT/CT head wo con* [id number] IMPRESSION: 1. No acute intracranial hemorrhage or edema. 2. Mild atrophy and mild chronic microvascular ischemic disease.
--- NOTE | 2021-03-08 13:24 | XR_ITS ---
WS: [id number] Exam: XR knee RT 3V* [id number] Date/Time of Exam: 03/08/2021 1:28 PM Reason For Exam: trauma Comparison 06/24/2020. No acute fracture or dislocation. No joint effusion. Moderate tricompartmental DJD. Calcification of the medial and lateral menisci. XR/XR knee RT 3V* [id number] IMPRESSION: 1. Moderate tricompartmental DJD and chondrocalcinosis. 2. No fracture or joint effusion.
--- NOTE | 2021-03-08 13:24 | XR_ITS ---
WS: [id number] Exam: XR shoulder LT min 2V* [id number] Date/Time of Exam: 03/08/2021 1:28 PM Reason For Exam: trauma No fracture or dislocation. Osteopenia. Normal soft tissues. XR/XR shoulder LT min 2V* [id number] IMPRESSION: 1. No fracture or dislocation noted. Osteopenia.
--- NOTE | 2021-03-08 13:24 | XR_ITS ---
WS: [id number] Exam: XR femur LT min 2V* [id number] Date/Time of Exam: 03/08/2021 1:28 PM Reason For Exam: trauma No fracture or dislocation. Degenerative changes at the knee and hip. Probable small bone infarct in the distal femur. XR/XR femur LT min 2V* [id number] IMPRESSION: 1. No acute fracture or dislocation.
--- NOTE | 2021-03-08 13:24 | XR_ITS ---
WS: [id number] Exam: XR shoulder RT min 2V* [id number] Date/Time of Exam: 03/08/2021 1:28 PM Reason For Exam: trauma No acute fracture or dislocation. Osteopenia. Minimal degenerative change at the AC joint. Normal sof t tissues. XR/XR shoulder RT min 2V* [id number] IMPRESSION: 1. Osteopenia and minimal DJD. No fracture or other significant finding.
--- NOTE | 2021-03-08 13:24 | XR_ITS ---
WS: [id number] Exam: XR wrist RT 2V [id number] Date/Time of Exam: 03/08/2021 1:28 PM Reason For Exam: trauma Comparison 09/09/2020. No acute wrist fracture. There is no fracture of the distal radius stabilized with plate and screw fi xation. No sign of hardware failure or malposition. Degenerative narrowing of the radiocarpal joint. Marked DJD at the CMC joint of the thumb. DJD at the articulation of the scaphoid and greater and les ser multangular. Acute appearing impacted comminuted fracture of the distal fourth metacarpal. XR/XR wrist RT 2V [id number] IMPRESSION: 1. No acute fracture or dislocation of the wrist. 2. Impacted comminuted fracture of the distal end of the fourth metacarpal.
--- NOTE | 2021-03-08 13:24 | XR_ITS ---
WS: [id number] Exam: XR knee LT 3V* [id number] Date/Time of Exam: 03/08/2021 1:28 PM Reason For Exam: trauma No acute fracture or dislocation. Moderate tricompartmental DJD. Calcification of the medial and late ral menisci. Probable small bone infarct in the distal femur. No joint effusion. XR/XR knee LT 3V* [id number] IMPRESSION: 1. No fracture or joint effusion. 2. Moderately advanced degenerative changes as discussed above.
--- NOTE | 2021-03-08 13:24 | XR_ITS ---
WS: [id number] Exam: XR wrist LT 2V [id number] Date/Time of Exam: 03/08/2021 1:28 PM Reason For Exam: trauma Comparison to 01/03/2020. No acute fracture or dislocation. Osteonecrosis of the scaphoid. Calcification of the triangular fibr ocartilage. Degenerative change of the radiocarpal joint and osteopenia. XR/XR wrist LT 2V [id number] IMPRESSION: 1. No acute fracture noted. 2. Degenerative changes and osteopenia. 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
--- NOTE | 2021-03-08 13:24 | XR_ITS ---
WS: [id number] Exam: XR hand RT 2V [id number] Date/Time of Exam: 03/08/2021 1:28 PM Reason For Exam: trauma There is an impacted comminuted fracture of the distal fourth metacarpal with shortening. No other ac [place] fractures of the hand are noted. Moderate degenerative change of the IP and MP joints. XR/XR hand RT 2V [id number] IMPRESSION: 1. Impacted comminuted fracture of the distal fourth metacarpal with shortening . No other acute fractures.
--- NOTE | 2021-03-08 13:24 | XR_ITS ---
WS: [id number] Exam: XR hand LT 2V [id number] Date/Time of Exam: 03/08/2021 1:28 PM Reason For Exam: trauma A minimally displaced fracture is seen at the medial margin of the base the proximal phalanx of the f ifth finger. The fracture extends into the MP joint. No other acute fractures are noted. Old fracture deformity at the base of the proximal phalanx of the index finger. Degenerative changes and osteopen ia. 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 Advanced DJD at the CMC suzan nt of the thumb. XR/XR hand LT 2V [id number] IMPRESSION: 1. Acute minimally displaced fracture at the base of the proximal phalanx of th e fifth finger. 2. Additional chronic findings as noted above.
[2021-03-08 13:39] LABS: Basophils # 0.1 10^3/uL (0.0-0.1); Eosinophils # 0.1 10^3/uL (0.0-0.8); Eosinophils % 0.8 %; Hematocrit 37.1 % (37.0-47.0); Hemoglobin 11.9 g/dL (11.5-15.3); Lymphocytes # 2.5 10^3/uL (0.8-4.8); Lymphocytes % 28.7 %; Mean Corpuscular HGB Conc 32.1 g/dL (30.0-36.0); Mean Corpuscular Hemoglobin 32.3 pg (28.0-34.0); Mean Corpuscular Volume 100.8 fL (81-99); Mean Platelet Volume 10.1 fL (7.4-10.4); Monocytes # 0.7 10^3/uL (0.2-0.9); Monocytes % 8.6 %; Neutrophils # 5.22 10^3/uL (1.8-7.7); Neutrophils % 60.7 %; Nucleated Red Blood Cells % 0 %; Platelet Count 221 10^3/cmm (130-400); Red Blood Count 3.68 10^6/uL (4.1-5.3); Red Cell Distribution Width 15.9 % (12.1-15.1); White Blood Count 8.6 10^3/uL (4.0-10.0)
--- NOTE | 2021-03-08 14:23 | PC.PHAR ---
pt states she takes care of her own medications-pt states she is unsure of the mg and names of all the medications-pt states if i could read her the names then she could verify-
[2021-03-08 15:02] LABS: Alanine Aminotransferase 9 U/L (0-33); Alkaline Phosphatase 101 IU/L (35-105); Aspartate Amino Transferase 11 U/L (0-32); Blood Urea Nitrogen 26 mg/dL (8-23); Calcium 8.5 mg/dL (8.5-10.5); Carbon Dioxide 19 mmol/L (22-29); Chloride 109 mmol/L (98-107); Creatine Phosphokinase 47 U/L (26-192); Globulin 2.2 g/dL (1.3-4.6); Glucose 95 mg/dL (65-115); Osmolality Calculated 299 mOsm/kg (285-295); Sodium 142 mmol/L (136-145); Total Bilirubin 0.2 mg/dL (0.15-1.2); Total Protein 6.2 g/dL (6.6-8.7)
[2021-03-08 15:03] LABS: Lactate (Lactic Acid level) 0.9 mmol/L (0.5-2.2)
[2021-03-08 16:03] LABS: Protein Urine Trace (Negative); Urine Appearance Clear (CLEAR); Urine Color Yellow (Yellow); pH Urine 5 (5-7)
[2021-03-08 16:04] LABS: Add Urine Microscopic? YES; Bilirubin Urine 1+ (Negative); Blood Urine Neg (Negative); Glucose Urine UA Norm (Normal); Ketones Urine Negative (Negative); Leukocyte Esterase Urine Negative (Negative); Nitrate Urine Negative (Negative); Urobilinogen Urine 1 mg/dL (Negative)
[2021-03-08 16:09] LABS: RBC Urine 0-4 /hpf (0-2); Squamous Epithelial Cell Urine 0-4 /hpf (0-5); WBC Urine 0-4 /hpf (0-5)
[2021-03-08 16:10] LABS: Bacteria Urine TRACE /hpf
[2021-03-08 16:14] LABS: Add Urine Culture? No; Amorphous Sediment Urine TRACE /hpf
[2021-03-08 19:30] VITALS: BP 139/79; PULSE 88; RESP 17
--- NOTE | 2021-03-09 09:02 | DCPLANNER ---
computer security manager had message to schedule a followup appointment for patient with ortho with Dr. Scott for a hand fracture and Dr. Marcus for L2 fracture. computer security manager called the ortho clinic, spoke with Navya, gave clinic patients information. computer security manager was told that patients information would be printed and reviewed. Clinic will call patient with appointment information.
--- NOTE | 2021-03-09 11:00 | DCPLANNER ---
loading manager had message to schedule a follow up appointment for patient with her primary care physician. loading manager spoke with patient, she stated that she would make the appointment.
--- NOTE | 2021-03-10 12:25 | DCPLANNER ---
Patient has a follow up appointment scheduled for Tuesday, March 16, 2021 at 1:[address] Scott at [facility]. Clinic will call patient with appointment information.
--- NOTE | 2021-03-18 15:16 | DCPLANNER ---
Patient has a follow up appointment scheduled for Tuesday, March 23, 2021 at 1:[address] Marcus at [facility]. Clinic will call patient with appointment information.
--- NOTE | 2021-05-11 13:42 | DCPLANNER ---
Patient had a follow up appointment scheduled for 03.23.[address] Marcus at [facility] - patient did attend appointment.
== END 2021-03-08 19:32 | disposition home or self-care (01) ==
PROVIDERS: Emergency Provider Family Medicine; PCP Family Medicine
DX: S62.317A Displaced fracture of base of fifth metacarpal bone, left hand, initial encounter for closed fracture (principal); S62.395A Other fracture of fourth metacarpal bone, left hand, initial encounter for closed fracture; S00.83XA Contusion of other part of head, initial encounter; S00.93XA Contusion of unspecified part of head, initial encounter; S60.212A Contusion of left wrist, initial encounter; S60.211A Contusion of right wrist, initial encounter; S60.222A Contusion of left hand, initial encounter; S60.221A Contusion of right hand, initial encounter; Y00.XXXA Assault by blunt object, initial encounter; J44.9 Chronic obstructive pulmonary disease, unspecified; F17.210 Nicotine dependence, cigarettes, uncomplicated
CPT/HCPCS: 70450; 70486; 71250; 72125; 73030; 73100; 73120; 73552; 73562; 74176; 80053; 81001; 82550; 83605; 85025; 96374; 99284; J2270

== ENCOUNTER 2021-03-16 15:31 | Outpatient (CLI) | payer MEDICARE, MEDICAID, SELFPAY | END 2021-03-16 15:32 | disposition home or self-care (01) | LOC: SPT 15:32 | PROVIDERS: PCP Family Medicine; Visit Provider Orthopaedic Surgery | DX: Z46.89 Encounter for fitting and adjustment of other specified devices (principal); S52.501D Unspecified fracture of the lower end of right radius, subsequent encounter for closed fracture with routine healing; S52.601D Unspecified fracture of lower end of right ulna, subsequent encounter for closed fracture with routine healing; X58.XXXD Exposure to other specified factors, subsequent encounter | CPT/HCPCS: 97760; L3984 ==

== ENCOUNTER → 2021-03-24 13:13 | Outpatient (BNVA) | payer MEDICARE, MEDICAID, SELFPAY | PROVIDERS: PCP Family Medicine; Visit Provider Family Medicine | DX: N28.9 Disorder of kidney and ureter, unspecified (principal) | CPT/HCPCS: 80048 ==

== ENCOUNTER → 2021-03-30 13:07 | Outpatient (BNVA) | payer MEDICARE, MEDICAID, SELFPAY | PROVIDERS: PCP Family Medicine; Referring Provider Family Medicine; Visit Provider Orthopaedic Surgery | DX: M43.16 Spondylolisthesis, lumbar region (principal); M54.2 Cervicalgia | CPT/HCPCS: 72050; 72100 ==

== ENCOUNTER → 2021-04-13 13:07 | Outpatient (BNVA) | payer MEDICARE, MEDICAID, SELFPAY | PROVIDERS: PCP Family Medicine; Visit Provider Orthopaedic Surgery | DX: S62.304A Unspecified fracture of fourth metacarpal bone, right hand, initial encounter for closed fracture (principal); X58.XXXA Exposure to other specified factors, initial encounter | CPT/HCPCS: 73130 ==

== ENCOUNTER 2021-05-03 13:37 | Outpatient (CLI) | payer MEDICARE, MEDICAID, SELFPAY ==
--- NOTE | 2021-05-03 13:45 | MR_ITS ---
WS: [id number] MRI LUMBAR SPINE NONCONTRAST TECHNIQUE: Sagittal T1, T2 and STIR imaging. Axial T1 and T2 imaging. CLINICAL INFORMATION: SPONDYLOLISTHESIS, LUMBAR REGION COMPARISON: MRI December [address] April 2020 FINDINGS: Mild lumbar curve. No acute compression. Disc space narrowing worse L4-L5 and L5-S1. Grade 1-2 peter listhesis L4 on L5 measuring 10 mm unchanged since April 16, 2020. Endplate degenerative changes L4-L5 and L5-S1. Degenerative disc disease at L4-L5 has progressed compared to the prior MRI December 14 9 with progressed endplate degenerative changes. This is also slightly progressed L5-S1. Severe centr al canal stenosis L4-5 is slightly progressed. L1-L2: Normal. L2-L3: Minimal annular bulging. Mild facet arthropathy. Spinal canal and foramen are patent. L3-L4: Mild annular bulging with slight effacement of the ventral thecal sac. Mild facet arthropathy. Spinal canal and foramen are patent. L4-L5: Grade 1-2 anterolisthesis. Severe central canal stenosis. Advanced facet arthropathy with liga mentum flavum hypertrophy. Redundancy of the cauda equina nerve rootlets with moderate to severe bila teral foraminal narrowing. Impingement on the exiting right greater than left L4 nerve roots. L5-S1: Mild disc bulging with osteophytic ridging. Slight effacement of the ventral thecal sac. Sligh t impingement on the left S1 nerve root. Mild facet arthropathy. Mild left greater than right foramin al narrowing. Mild/moderate facet arthropathy. Visualized pelvic bony structures: Normal. Paravertebral soft tissues: Normal. MR/MR lumbar spine wo con* [id number] IMPRESSION: 1. Grade 1-2 anterolisthesis L4 on L5 is unchanged measuring 10 mm with slight ly progressed severe central canal stenosis at this level with redundancy of th e cauda equina nerve rootlets. 2. Moderate to severe bilateral L4-5 foraminal narrowing worse in the right wi th impingement on the exiting right greater than left L4 nerve roots. 3. Disc osteophyte complex L5-S1 impinges the traversing left S1 nerve root wi th mild left foraminal narrowing. 4. Spinal canal and foramen are otherwise patent at L1-L3.
--- NOTE | 2021-05-03 13:45 | MR_ITS ---
WS: [id number] MRI CERVICAL SPINE NONCONTRAST TECHNIQUE: Sagittal T1, T2 and STIR imaging. Axial T2, gradient, and fiesta imaging. CLINICAL INFORMATION: CERVICALGIA COMPARISON: CT cervical March 08, 2021 FINDINGS: Slight anterolisthesis C4 on C5. Disc space narrowing worse at C4-C5 C5-C6 and C6-C7. Cord signal is normal. C2-C3: Mild disc osteophytic ridging. Moderate facet arthropathy. Spinal canal is patent. Foramen are patent. C3-C4: Disc osteophyte complex with endplate ridging. Mild central canal stenosis. Moderate left facet arthropathy. Moderate left and mild right bony foraminal narrowing. C4-C5: Slight anterolisthesis C4 on C5. Mild central canal stenosis. Moderate facet arthropathy. Mild bilateral bony foraminal narrowing. Moderate facet arthropathy. C5-C6: Disc osteophyte complex with endplate ridging. Mild central canal stenosis. Mild to moderate b ilateral bony foraminal narrowing worse in the left. Moderate facet arthropathy. C6-C7: Disc osteophyte complex with endplate ridging. Mild to moderate bilateral bony foraminal narro wing. Spinal canal is patent. C7-T1: Disc osteophyte complex with endplate ridging. Moderate bilateral bony foraminal narrowing. Sp inal canal is patent. Small vessel changes in the seng. Chronic lacunar infarcts partially visualized in the cerebellum. MR/MR cervical spin wo con* [id number] IMPRESSION: 1. Moderate spondylitic changes cervical spine. Cord signal is normal. 2. Mild central canal stenosis C3-C4 C4-C5 and C5-C6 due to disc osteophyte c omplexes. This is worse at C3-C4 and C4-C5. 3. Mild to moderate multilevel bony foraminal narrowing worse at left C3-4, le ft C5-C6, left C6-7, and bilateral C7-T1 worse in the left.
== END 2021-05-03 13:38 | disposition home or self-care (01) ==
PROVIDERS: PCP Family Medicine; Visit Provider Orthopaedic Surgery
DX: M54.2 Cervicalgia (principal); M43.16 Spondylolisthesis, lumbar region; M25.78 Osteophyte, vertebrae
CPT/HCPCS: 72141; 72148

== ENCOUNTER → 2021-05-28 14:08 | Outpatient (BNVA) | payer MEDICARE, MEDICAID, SELFPAY | PROVIDERS: PCP Family Medicine; Visit Provider Family Medicine | DX: N28.9 Disorder of kidney and ureter, unspecified (principal); J20.8 Acute bronchitis due to other specified organisms; B96.89 Other specified bacterial agents as the cause of diseases classified elsewhere | CPT/HCPCS: 80048 ==

== ENCOUNTER → 2021-06-24 14:08 | Outpatient (BNVA) | payer MEDICARE, MEDICAID, SELFPAY | PROVIDERS: PCP Family Medicine; Visit Provider Family Medicine | DX: R39.9 Unspecified symptoms and signs involving the genitourinary system (principal); R30.0 Dysuria; R32 Unspecified urinary incontinence; R05 Cough; R50.9 Fever, unspecified; I70.0 Atherosclerosis of aorta; Z95.2 Presence of prosthetic heart valve | CPT/HCPCS: 71046; 81000; 87086; 87426 ==

== ENCOUNTER → 2021-09-15 00:01 | Outpatient (BNVA) | payer MEDICARE, MEDICAID, SELFPAY | PROVIDERS: PCP Family Medicine; Visit Provider Orthopaedic Surgery | DX: M48.062 Spinal stenosis, lumbar region with neurogenic claudication (principal); M43.16 Spondylolisthesis, lumbar region; Z20.822 Contact with and (suspected) exposure to COVID-19 | CPT/HCPCS: 87635 ==

== ENCOUNTER 2021-09-22 16:52 | Observation (INO) | payer MEDICARE, MEDICAID, SELFPAY ==
[2021-09-17 12:34] VITALS: BMI 17.3
--- NOTE | 2021-09-17 12:43 | ECG_ITS ---
[facility] Test Date: 2021-09-17 Pat Name: Felipa Winslow Department: Room: Gender: Female House Admin: : 1955 Requested By: Nitin Ruiz Order Number: [id number] Shanice MD: Mauro Davis M.D. Measurements Intervals [place] Rate: 62 P: 70 WA: 131 QRS: 1 QRSD: 97 T: 68 QT: 450 QTc: 458 Interpretive Statements SINUS RHYTHM INCOMPLETE RIGHT BUNDLE BRANCH BLOCK [90+ ms QRS DURATION, TERMINAL R IN V1/V2, 40+ ms S IN I/aVL/V4/V5/V6] ANTEROSEPTAL MYOCARDIAL INFARCTION , OF INDETERMINATE AGE [40+ ms Q WAVE IN V1-V4] Compared to ECG 11/24/2020 17:13:47 Incomplete right bundle-branch block now present Myocardial infarct finding now present ST (T wave) deviation no longer present Prolonged QT interval no longer present Electronically Signed On 09-20-2021 17:32:50 WAITER/WAITRESS HEAD by Mauro Davis M.D. [id number]
--- NOTE | 2021-09-17 13:32 | ANES.PREANE2 ---
Pre-Anesthetic Assessment Pre-Anesthetic Assessment: Height/Weight: Height 1.6 m Weight 44.452 kg Preop Diagnosis: Right distal radius fracture intra-articular, displaced, new today and oste Proposed Procedure: Operation Date: 09/22/21 13:30 Proposed Procedures p Posterior Lumbar Interbody Fusion L4/5 35310 [id number] 14624 M48.062(Not Applicable) - Preston Marcus, DO Was Beta Isa taken within 24 hours: Yes Was Clonidine taken within 24 hours: N/A Social: Social History: Tobacco and No alcohol Exam: Pre-Anes Outpt Exam: alert, oriented x 3 and regular rate & rhythm Additional Exam Findings (including area of procedure): rhonchi Airway: Submandibular: WNL Cervical ROM: Other (some decrease from prior neck surgery) MP: 2 Dentition: False Pulmonary: Pulmonary: COPD CV/HEM: CV/HEM: CAD (CABG '15,MVR) and HTN GI: GI: GERD Musc/skel: Musc/skel: Lower Back Pain Neuropsych: Neuropsych: TIA Anesthetic Plan: ASA status: 3 Anesthesia: General Risk of > 500 ml blood loss (7ml/kg in children): No PFSH Anesthesia PFSH: Medical History Chronic nausea COPD (chronic obstructive pulmonary disease) Not in exacerbation GERD (gastroesophageal reflux disease) History of TMJ disorder Left sided surgery Intervertebral disc disorder with radiculopathy of lumbosacral region Joint instability Spinal stenosis, lumbar region with neurogenic claudication Spondylolisthesis of lumbar region Surgical History History of cervical spinal surgery 1996 C5-C6 fusion [place], [place] History of hysterectomy History of mitral valve replacement with bioprosthetic valve History of open heart surgery Open heart surgery with valve replacement, performed in [place], [place] by Dr. Taylor, 2015 History of tonsillectomy History of tubal ligation Family History Other Alzheimer's disease No pertinent family history Social History Alcohol intake: never Lives independently: No (LIVES WITH BROTHER) Household members: family Marital status: Current occupational status: disabled History of recent travel: No Data Anesthesia Cardiac Studies: No Data to Display
[2021-09-17 14:29] LABS: Basophils # 0.1 10^3/uL (0.0-0.1); Basophils % 1.4 %; Eosinophils # 0.3 10^3/uL (0.0-0.8); Eosinophils % 3.6 %; Hematocrit 37.1 % (37.0-47.0); Hemoglobin 11.7 g/dL (11.5-15.3); Lymphocytes # 2.3 10^3/uL (0.8-4.8); Lymphocytes % 33.3 %; Mean Corpuscular HGB Conc 31.5 g/dL (30.0-36.0); Mean Corpuscular Hemoglobin 30.5 pg (28.0-34.0); Mean Corpuscular Volume 96.6 fl (81-99); Mean Platelet Volume 10.3 fL (7.4-10.4); Monocytes # 0.7 10^3/uL (0.2-0.9); Monocytes % 9.7 %; Neutrophils # 3.57 10^3/uL (1.8-7.7); Neutrophils % 51.7 %; Nucleated Red Blood Cells % 0 %; Platelet Count 239 10^3/cmm (130-400); Red Blood Count 3.84 10^6/uL (4.1-5.3); Red Cell Distribution Width 15.2 % (12.1-15.1); White Blood Count 6.9 10^3/uL (4.0-10.0)
[2021-09-22] VITALS (9 sets, daily range): BP systolic 87–131; BP diastolic 42–79; PULSE 74–96; RESP 16–19; TEMP 36.1–37.4; O2SAT 91–100
--- NOTE | 2021-09-22 | SCC_ITS ---
Procedure Done: 1. L4/5 Interbody fusion with posterolateral fusion 2. L5/S1 Interbody fusion with posterolateral fusion 3. Instrumentation L4-S1 4. Cage at L4/5 5. Cage at L5/S1 6. Laminectomy L4 7. Laminectomy L5 8. use of autograft from same incision 9. allograft 10. Bone marrow aspirate from right iliac crest 11. use computer navigation/ stereotactic spine 15 seconds of fluoroscopic guidance, for a cumulative dose of 12.8 mGy, was provided to Dr. Marcus by the radiology department. C-arm images of the lumbar spine were saved for the patient's permanent record. [facility]
--- NOTE | 2021-09-22 07:20 | W.PM.OPSUD ---
Surgery/Procedure H&P Update DATE OF PROCEDURE: September 22, 2021 DATE H&P PERFORMED: 08/24/21 H&P UPDATE INFORMATION: I have reviewed H&P completed within last 30 days, I have examined patient prior to procedure and No changes to prior documentation PREOP DIAGNOSIS: Right distal radius fracture intra-articular, displaced, new today and oste PLANNED PROCEDURE: Operation Date: 09/22/21 10:10 Proposed Procedures p Posterior Lumbar Interbody Fusion L4/5 48311 [id number] M48.062(Not Applicable) - Preston Marcus DO
--- NOTE | 2021-09-22 09:39 | P.ANESUD_ITS ---
Pre-Anesthetic Update Pre-Anesthetic Assessment: Date of Surgery/Procedure: 09/22/21 Preop Clarissa gnosis: Spondylolisthesis L4-5 Proposed Procedure: Operation Date: 09/22/21 10:10 Proposed Procedures p Posterior Lumbar Interbody Fusion L4/5 25510 [id number] 33862 M48.062(Not Applicable) - Preston Marcus, DO Any changes to Pre-Anesthetic Assessment?: No Last Intake: Intake Last Liquid Date 09/21/21 Last Liquid Time 05:00 Last Solid Date 09/21/21 Last Solid Time 20:00 Vitals: Temperature 99.4 F 09/22/21 08:48 Temperature Source Temporal Artery S can 09/22/21 08:48 Pulse Rate 74 09/22/21 08:48 Pulse Rhythm 09/22/21 08:57 Pulse Strength 3+ Normal 09/22/21 08:57 Respiratory Rate 19 H 09/22/21 08:48 Blood Pressure 128/66 09/22/21 08:48 Blood Pressure Korin n 86 09/22/21 08:48 Pulse Oximetry 99 09/22/21 08:48 Oxygen Delivery Me thod 09/22/21 08:57 Exam: Pre-Anes Outpt Exam: alert, oriented x 3, clear to auscultation bilaterally and regular rate & rhythm Cardiac Studies: No Data to Display
[2021-09-22] MEDS: sodium chloride 0.9% 1,000 ML 30 ML IV (12:52)
[2021-09-22] MEDS: clindamycin 900 MG/50 ML PREMIX 100 MG IV (14:09)
[2021-09-22] MEDS: heparin, porcine 1,000 unit/mL INJ 10 mL 10000 UNIT INJECTION (14:52)
[2021-09-22] MEDS: vancomycin 1,000 MG SDV 1000 MG XX (14:54)
--- NOTE | 2021-09-22 17:03 | XR_ITS ---
WS: [id number] Exam: XR lumbar spine 1V [id number] Date/Time of Exam: 09/22/2021 5:03 PM Reason For Exam: LUMBAR FUSION Intraoperative C-arm images in the AP and lateral projections of the lumbar spine are submitted for e valuation. There is operative fusion of the spine from L4 to S1 with pedicle screws and posterior rods. There ar e disc spacers at L4-5 and L5-S1. Grade 1 spondylolisthesis of L4 on L5. Hardware appears to be in sa tisfactory location based on images presented.
--- NOTE | 2021-09-22 17:08 | P.OP_ITS ---
Operative Report Date of procedure: September 22, 2021 Pre-op Diagnosis: Spondylolisthesis L4-5; lumbar stenosis with neurogenic claudication Post-op diagnosis: same Procedure Done: 1. L4/5 Interbody fusion with posterolateral fusion 2. L5/S1 Interbody fusion with posterolateral fusion 3. Instrumentation L4-S1 4. Cage at L4/5 5. Cage at L5/S1 6. Laminectomy L4 7. Laminectomy L5 8. use of autograft from same incision 9. allograft 10. Bone marrow aspirate from right iliac crest 11. use computer navigation/ stereotactic spine Surgeon: Preston Marcus Anesthesia: General Estimated blood loss (mL): 650 Condition: stable Disposition: PACU Procedure: 1. L4/5 Interbody fusion with posterolateral fusion 2. L5/S1 Interbody fusion with posterolateral fusion 3. Instrumentation L4-S1 4. Cage at L4/5 5. Cage at L5/S1 6. Laminectomy L4 7. Laminectomy L5 8. use of autograft from same incision 9. allograft 10. Bone marrow aspirate from right iliac crest 11. use computer navigation/ stereotactic spine Patient is brought to the operative suite. After undergoing anesthesia, the patient had neuro monitoring attached. Patient was then placed in the prone position on the Adarsh table. All areas of impingement were well-padded. Patient was then prepped and draped in the normal sterile fashion. Skin incision was then made over the L4-S1disk space. Subperiosteal dissection was made out to the transverse processes of L4 and L5 and sacral ala. Once the exposure was complete attention was then brought to getting bone marrow aspirate. The [employer] bone marrow aspirate kit was used to aspirate bone marrow aspirate from right iliac crest. This was done by using the sharp probe to open up the bone. Aspiration was performed and then the blunt probe was then used to dissect down to through the bone tunnel. An aspirating well drawn back a millimeter approximately 20 cc of bone marrow aspirate was used. Admixed with the allograft and autograft bone that will be used. The fiducial for the computer navigation was then placed into the right iliac crest. This was done by placing 2 pins into the iliac crest. And hooking up the fiducial. Next the C-arm was brought in and the information from the serum was linked into the computer as well as the computer navigation and the fiducial. In order to facilitate using computer navigation for the spine. The technique for placing the pedicle screws was to use a drill followed by the gearshift probe linked to computer navigation. Followed by the ball probe to feel the superior inferior medial lateral pino of the pedicles. Then placement of the screws linked to computer navigation. Was done at each pedicle. Screws were placed at L4 bilaterally and L5 and the sacral ala S1 pedicle. Next attention was brought to performing the laminectomy ofL5. This was done using the high-speed bur Kerrisons and curettes. Once the lamina was removed and then attention was brought to performing a partial facetectomy on the contralateral side. This was done again using the high-speed bur curettes and Kerrisons. The ligamentum flavum was taken down bilaterally from L5 to S1. Attention was then brought to the facet on the ipsilateral side. The facet was taken down. The S1 nerve was decompressed as it passed around the S1 pedicle. The laminectomy was done for purposes of decompressing the nerve as well as placement of the cage. The L5 nerve was identified as it traversed through the L5/S1 foramen. The thecal sac was identified and retracted. The L5/S1 disc base was identified. Using a knife the disc base was opened. And then sequential ronnell were placed. The first shaver was a 6 and the last shaver was a 9. Using a pituitary and down going curette the endplates were scraped and disc material was removed from the space. Once adequate decompression of the disc base was felt to be had. Osteoamp sponge was packed into the anterior aspect of the disc base. Then a size 9 cage from [employer] was placed after packing osteoamp into the cage. While placing the cage the thecal sac and S1 nerve was protected. C arm was used to ensure that the cages placed in the appropriate position. Next attention was brought to performing the laminectomy ofL4/5. This was done using the high-speed bur Kerrisons and curettes. Once the lamina was removed and then attention was brought to performing a partial facetectomy on the contralateral side. This was done again using the high-speed bur curettes and Kerrisons. The ligamentum flavum was taken down bilaterally from L4 to L5. Attention was then brought to the facet on the ipsilateral side. The facet was taken down. The L5 nerve was decompressed as it passed around the L5 pedicle. The laminectomy was done for purposes of decompressing the nerve as well as placement of the cage. The L4 nerve was identified as it traversed through the L4/5 foramen. The thecal sac was identified and retracted. The L4/5 disc base was identified. Using a knife the disc base was opened. And then sequential ronnell were placed. The first shaver was a 6 and the last shaver was a 11. Using a pituitary and down going curette the endplates were scraped and disc material was removed from the space. Once adequate decompression of the disc base was felt to be had. Osteoamp sponge was packed into the anterior aspect of the disc base. Then a size 11 cage from [employer] was placed after packing osteoamp into the cage. While placing the cage the thecal sac and L5 nerve was protected. C arm was used to ensure that the cages placed in the appropriate position. Attention was then brought to attaching the rods to the screws placed in the L4 to S1 bilaterally. Caps were torqued into position. Locking the construct in place. Wound was copiously irrigated and then attention was brought to decorticating the facets and transverse processes laterally. Bone that was taken down from the lamina was used along with osteoamp fibers and sponges were packed into the lateral gutters along the facet joints. This was done bilaterally. The fiducials pins were then removed from the right iliac crest. Wound was then closed in a layered fashion starting with the thoracolumbar fascia. 0-vicryl was used the sub cutaneous tissue was closed with 2-0 vicryl and skin with 4-0 monocryl. Glue was then used to seal the skin and a steril dressing was applied. Patient was then placed in the supine position. The endotracheal tube was removed and patient was transferred to the PACU in stable condition.
[2021-09-22] MEDS: docusate sodium 100 mg Capsule PO (18:22)
[2021-09-22] MEDS: lactated ringers 1,000 ML 90 ML IV (18:40)
[2021-09-22] MEDS: ketorolac 30 mg/mL INJ IVP (20:11)
[2021-09-22] MEDS: gabapentin 300 mg Capsule 600 MG PO (20:13)
[2021-09-22] MEDS: albuterol 8 gm MDI 2 PUFF INHALATION (20:23)
[2021-09-22] MEDS: HYDROcodone-acetaminophen 5-325 mg Tablet PO (21:28)
[2021-09-22] MEDS: metoprolol tartrate 50 mg Tablet PO (21:28)
[2021-09-22] MEDS: clindamycin 600 MG/50 ML PREMIX 100 MG IV (21:28)
[2021-09-23 02:41] LABS: Hematocrit 24.3 % (37.0-47.0); Hemoglobin 7.7 g/dL (11.5-15.3)
[2021-09-23] MEDS: HYDROcodone-acetaminophen 5-325 mg Tablet PO ×3 (03:40→13:15)
[2021-09-23 04:00] VITALS: BP 108/63; PULSE 80; RESP 17; TEMP 36.8; O2SAT 94
[2021-09-23] MEDS: lactated ringers 1,000 ML 90 ML IV (04:31)
[2021-09-23] MEDS: cyclobenzaprine 10 mg Tablet PO (04:57)
[2021-09-23] MEDS: clindamycin 600 MG/50 ML PREMIX 100 MG IV (05:00)
[2021-09-23] MEDS: enoxaparin 40 mg/0.4 mL Syringe SUBCUT (05:00)
[2021-09-23 07:11] VITALS: BP 84/39; PULSE 79; RESP 16; TEMP 37.8; O2SAT 91
--- NOTE | 2021-09-23 07:30 | P.PN_ITS ---
Documented by User: ELIE Lutz 09/23/21 07:33 Subjective Subjective: Interval history: POD 1 Patient alert feeling much better. Denies any lightheadedness or dizziness. Denies any shortness of breath, chest pain, headaches. Her back and leg pains have improved significantly. Vitals/I&O/Wt Last Vital Signs Temp 100.0 F H 09/23/21 07:11 Pulse 79 09/23/21 07:11 Resp 16 09/23/21 07:11 BP 84/39 09/23/21 07:11 Pulse Ox 91 09/23/21 07:11 09/22/21 09/23/21 09/23/21 22:59 06:59 14:59 Intake Total 1870 / 1920 910 / 2830 Output Total 800 / 800 730 / 1530 Balance 1070 / 1120 180 / 1300 Physical Exam Narrative: EXAM NARRATIVE: Patient presents alert and oriented x3 with a good general appearance normal normal affect. Mild tenderness around the incisional site with the incision appearing clean and dry. 5/5 motor strength both lower extremities with negative straight leg raise bilaterally. Calves are supple no medial thigh tenderness. Pulses are 2+ at the dorsalis pedis and posterior tibial region. Good capillary refill throughout normal sensation light touch both lower extremities. Urinary Catheter Management^: F: Cath Placed During This Visit: yes Reason for Continuing Indwelling Catheter: Required Immobilization for Trauma or Surgery or Anesthesia Urinary Catheter Date of Insertion: 09/22/21 Urinary Catheter Time of Insertion: 14:20 Data : 09/23/21 02:05 A&P Assessment and plan (1) Status post lumbar spinal fusion: We will discontinue the Bower catheter as well as Hemovac drain. Physical therapy work with her for mobilization with a walker. Patient is anxious to go home. If she becomes dizzy lightheaded or tachycardic and consider giving 1 unit of packed red blood cells. If she remains stable then consideration of discharge home later today and consider Niferex orally to help with anemia. Status: Acute (2) Acute blood loss as cause of postoperative anemia: Status: Acute Attestations Medical Necessity Statement*: later today if stable Coding Level of Care Code Acute Senior Mechanical Designer for [facility] Fwd Diagnoses Status post lumbar spinal fusion Z98.1 Acute blood loss as cause of postoperative anemia D62 Encounter for postoperative care Z48.89 Documented by User: Preston Marcus DO 09/23/21 08:52 Physical Exam Urinary Catheter Management^: F: Cath Placed During This Visit: no Data : 09/23/21 02:05 A&P Assessment and plan (1) Encounter for postoperative care: Patient doing well at this point will DC Bower DC Hemovac drain recheck a CBC if patient remains asymptomatic clinically will likely discharge if hemoglobin is above 7. Status: Acute Coding Level of Care Code Acute Senior Mechanical Designer for [facility] Fwd Diagnoses Status post lumbar spinal fusion Z98.1 Acute blood loss as cause of postoperative anemia D62 Encounter for postoperative care Z48.89
[2021-09-23] MEDS: albuterol 8 gm MDI 2 PUFF INHALATION (07:36)
[2021-09-23 07:37] VITALS: BP 100/58; PULSE 80; RESP 16; O2SAT 92
--- NOTE | 2021-09-23 08:52 | P.DS_ITS ---
Discharge Providers Date of Admission: 09/22/21 16:52 Date of Discharge: September 23, 2021 Attending Provider at Admission: Preston Marcus DO Attending Provider at Discharge: Preston Marcus DO Primary Care Provider: Debra Monet DO Diagnoses at Discharge Discharge Diagnosis (1) Encounter for postoperative care: Status: Acute Reason for Visit Reason for Visit: Spinal Stenosis Hospital Course Hospital Course Patient mated on 09/22/2021. She had a two-level posterior lumbar interbody fusion. Her stay was uncomplicated she is discharged on 09/23/2021. Physical Exam Urinary Catheter Management^: F: Cath Placed During This Visit: yes Reason for Continuing Indwelling Catheter: Required Immobilization for Trauma or Surgery or Anesthesia Urinary Catheter Date of Insertion: 09/22/21 Urinary Catheter Time of Insertion: 14:20 Discharge Data Data Completed and Pending: Completed Studies During Hospitalization Category Date Time Status XR lumbar spine 1 V 27519 Routine Exams 09/22/21 17:03 Completed Pending at discharge Category Date Time Status C-arm Fluoroscopy [id number] Routine Exams 09/22/21 08:49 Taken Complete Blood Co unt w/Auto Routine Lab 09/23/21 08:06 Ordered Labs from last 24 hours 09/23/21 09/22/21 02:05 12:45 Hgb 7.7 L Hct 24.3 L Blood Type O Negative Rho(D) Type Negative Antibody Screen Negative Vitals: Last Vital Signs Temp 100.0 F H 09/23/21 07:11 Pulse 80 09/23/21 07:37 Resp 16 09/23/21 07:37 BP 100/58 09/23/21 07:37 Pulse Ox 92 09/23/21 07:37 Discharge Plan Discharge Patient Disposition: Home Condition: Stable Prescriptions: New hydrocodone-acetaminophen 5-325 mg tablet 1 - 2 tab PO .Q4-6H Qty: 40 RF: 0 Niferex (Sumalate-Quatrefolic) 150 mg iron- 60 mg-1 mg tablet 1 tab PO DAILY 30 Days Qty: 30 RF: 0 Continued acetaminophen 500 mg tablet 500 - 1,000 mg PO PRN RF: 0 melatonin 5 mg capsule 5 mg PO BEDTIME PRN (Reason: Sleep) RF: 0 diphenhydramine HCl [Benadryl] 25 mg capsule 25 mg PO PRN RF: 0 (DME) Fast form ulnar gutter splint See Rx Instructions .Route .MEDSUPPLY Qty: 1 RF: 0 metoprolol tartrate 50 mg tablet 50 mg PO BID@1000,2200 Qty: 60 RF: 0 Zyrtec 10 mg tablet 10 mg PO DAILY@1000 Qty: 90 RF: 1 albuterol sulfate [Ventolin HFA] 90 mcg/actuation HFA aerosol inhaler See Rx Instructions .ROUTE .COMPLEX Qty: 18 RF: 2 citalopram 20 mg tablet See Rx Instructions .ROUTE .COMPLEX Qty: 90 RF: 0 gabapentin 600 mg tablet See Rx Instructions .ROUTE .COMPLEX Qty: 90 RF: 3 cyclobenzaprine 10 mg tablet See Rx Instructions .ROUTE .COMPLEX Qty: 90 RF: 3 montelukast 10 mg tablet 10 mg PO DAILY@1000 90 Days Qty: 90 RF: 0 Latuda 40 mg tablet See Rx Instructions .ROUTE .COMPLEX Qty: 90 RF: 0 pantoprazole 40 mg tablet,delayed release (DR/EC) See Rx Instructions .ROUTE .COMPLEX Qty: 90 RF: 0 cyanocobalamin (vitamin B-12) 1,000 mcg/mL solution See Rx Instructions .ROUTE .COMPLEX Qty: 1 RF: 1 promethazine 25 mg tablet See Rx Instructions .ROUTE .COMPLEX Qty: 90 RF: 0 fluticasone propionate [Flonase Allergy Relief] 50 mcg/actuation spray,suspension 1 spray INTRANASAL DAILY Qty: 16 RF: 4 lisinopril 10 mg tablet 10 mg PO DAILY Qty: 90 RF: 0 buspirone 15 mg tablet See Rx Instructions .ROUTE .COMPLEX Qty: 90 RF: 0 multivitamin Tablet 1 tab PO DAILY RF: 0 Discharge Orders: Discharge Order (Routine); Ordered 09/23/21 Ordered By: Preston Marcus Discharge Diet: Advance as tolerated Discharge Activity: Limit activity as instructed Patient Instructions: Opioid Safety Activity Restrictions/Additional Instructions: Thank you for choosing [facility] for your care! The following is a list of instructions, from your provider, to follow upon your discharge to ensure you have the optimal recovery from your recent injury or surgery. Follow-up care is a mulligan part of your treatment and safety. Be sure to make and go to all appointments, and call your doctor if you are having problems. If you do not already have a follow-up appointment made, call Dr. Marcus's office in the next 1-3 days to make follow up appointment for [1] weeks at [phone]. It is also a good idea to know your test results and keep a list of the medicines you take. Medications will be prescribed for you at your provider's discretion. These medications are to be used as instructed; if they are taken more often that prescribed they will not be refilled early and in most cases will not be refilled at all. > When a refill is needed,you should contact our office 2-3 business days before your prescription runs out. Medications will NOT be refilled by non ferrous material handler providers after hours! > Many pain medications contain Tylenol (Acetaminophen). Do not consume more than 4,000 mg of Tylenol per day in total with any combination of medications. > Pain medications can cause constipation. Please use an over the counter stool softener as directed, while taking pain medications. Consult your local pharmacist with questions or recommendations on stool softeners. If constipation persists, contact our office or your primary care provider. > While under our care,you are not to receive pain medications or other controlled substances from any other provider unless our office is notified and approves. Any attempts to do so will result in refusal to prescribe any further pain medications and possible dismissal from our practice. ? Your wound and/or dressing should remain clean and dry for 2 days after surgery. On postoperative day 2 (48 hours after your surgery) the dressing (if present) should be removed and it is okay to shower and get the incision wet. Pad dry afterwards. No further dressing should be required from that point on. Do not put any creams or ointments on the incision > It is normal for there to be a small amount of discharge (bloody or blood tinged) present from a surgical wound for the first 1-3days. > The wound should be examined twice a day for signs of infection. Mild redness or bruising is to be expected but indications that an infection maybe starting would include; An increase in redness, swelling, or discharge, a foul odor present around the incision, and/or a fever greater than 101 ?F ? Showering is permitted, however we ask that you do not take a bath, sit in a whirlpool / Jacuzzi, or go swimming for 1 month. For only the first 2 days after surgery, lt wilt be necessary for you to cover your wound/dressing with plastic and tape to keep it dry. ? Walking is essential for the healing process after surgery. We would like you to slowly advance your walking. This should be done on relatively flat clear ground (inside or out) or can be done on a treadmill. Remember this goal does not have to happen all at once, slowly increase your distance and duration. This can be broken into more more than one walk per day as tolerated. Patients who walk as directed after surgery rarely require Physical Therapy. In the unlikely event this issue arises your provider will direct hospital staff to make the appropriate arrangements. ? No lifting over 5 pounds {a gallon of milk) or bending/twisting until further notice. Each of these activities places an unnecessary amount of stress onto the body and can impede the delicate healing process. > Instead of bending at the waist, keep your back straight and bend at the knees. > Instead of twisting your torso, keep your back straight and turn your entire body with your feet. ? You may sleep in any position which makes you comfortable. Many patients find comfort sleeping in a reclining chair. It is not abnormal to have difficulty sleeping for the first several weeks following your surgery. We recommend trying Benadry! or Tylenol PM as directed to help with your sleeping difficulties. Both medications are over the counter and available without prescription. ? NO SMOKING!!! Smoking dramatically increases the probability of developing postoperative wound infections. ? Common complaints after lumbar and/or thoracic spine surgery include, but are not limited to: numbness and/or tingling in the legs, pain around the incision and surrounding tissues, muscle spasms, or stiffness of the middle to low back. Contact our office if these symptoms persist or if an acute change occurs. ? No driving for the first 3-5days, and not while taking narcotics [] until seen at your follow-up appointment and cleared. There are no restrictions for riding on short trips, however if you take a longer trip, arrangements should be made to make regular stops to get out of the vehicle and stretch . ? Swelling is an unfortunate event that will take place with any surg randy and is the primary source of your postoperative discomfort. While walking and regular approved activities helps control inflammation, there are additional steps you can take to minimize swelling. > Place ice over the surgical site and surrounding tissue for twenty minutes, followed by applying a low/medium heat (heating pad) for an additional twenty minutes every 1-2 hours as needed for pain relief. > You may use of over the counter anti-inflammatory medications (Ibuprofen, Motrin, Aleve, Advil, etc) as directed on the package label. These types of medicines wm significantly reduce the amount of discomfort you experience after surgery from swelling. It should be noted that if you have and allergy to any of these medications, or a history of ulcers or kidney disease you should consult you primary care provider prior to starting these medications. Discharge Attestations Time Spent in Discharge Care*: less than 30 min Quality Metrics Clinical Quality Measures During this hospital stay, did patient experience: None Coding Level of Care Code Acute g FW DC note Diagnoses Encounter for postoperative care Z48.89
[2021-09-23] MEDS: multivitamin therapeutic Tablet 1 TAB PO (09:17)
[2021-09-23] MEDS: gabapentin 300 mg Capsule 600 MG PO (09:18)
[2021-09-23] MEDS: metoprolol tartrate 50 mg Tablet PO (09:18)
[2021-09-23] MEDS: montelukast sodium 10 mg Tablet PO (09:18)
[2021-09-23] MEDS: citalopram 20 mg Tablet PO (09:18)
[2021-09-23] MEDS: docusate sodium 100 mg Capsule PO (09:18)
[2021-09-23] MEDS: lisinopril 10 mg Tablet PO (09:18)
[2021-09-23] MEDS: cetirizine 10 mg Tablet PO (09:18)
[2021-09-23] MEDS: pantoprazole DR 40 mg Tablet PO (09:18)
[2021-09-23] MEDS: BuSPIRONE 10 mg Tablet 15 MG PO (09:19)
[2021-09-23] MEDS: fluticasone nasal spray 16gm Btl 1 SPRAY INTRANASAL (09:25)
[2021-09-23 09:47] LABS: Basophils % 0.1 %; Hematocrit 22.6 % (37.0-47.0); Hemoglobin 7.2 g/dL (11.5-15.3); Lymphocytes # 2.2 10^3/uL (0.8-4.8); Lymphocytes % 20.8 %; Mean Corpuscular HGB Conc 31.9 g/dL (30.0-36.0); Mean Corpuscular Volume 97.4 fl (81-99); Mean Platelet Volume 9.7 fL (7.4-10.4); Monocytes # 0.9 10^3/uL (0.2-0.9); Monocytes % 9.1 %; Neutrophils # 7.22 10^3/uL (1.8-7.7); Neutrophils % 69.5 %; Nucleated Red Blood Cells % 0 %; Platelet Count 219 10^3/cmm (130-400); Red Blood Count 2.32 10^6/uL (4.1-5.3); Red Cell Distribution Width 15.7 % (12.1-15.1); White Blood Count 10.4 10^3/uL (4.0-10.0)
--- NOTE | 2021-09-23 10:34 | PC.CHAP ---
Pastoral Care Encounter/Spiritual Assessment Type of Contact [] Declined lining inserter visit [] Patient/Family/Request visit [] Outpatient visit [] Follow-up visit [] Physician referral [] Code/Alert [x] Routine visit [] Staff referral [] Actively dying [] Patient sleeping [] Family support [] [] Out of room [] Palliative care [] [x] Receiving care in room [] Pre-surgical visit [] Trauma [] Long length of stay [] ICU visit [] Other: Relational/Emotional Strength [x] Patient feels connected with others/family/visitors/staff [] Distress [] Loneliness/isolation [] Abandonment Spirituality of Patient [x] Person of Jolie [] Attends Synagogue of their Jolie [x] Believes in Prayer [] Reads Bible or Presybeterian materials [] There are Spiritual issues to be addressed Tray Room Worker Interventions [x] Prayer [x] Active listening [x] Non-anxious presence [x] Spiritual/emotional support [] Crisis/trauma care [x] Spiritual counseling [] Bereavement support [] Provided bereavement packet [] Provided Bible/devotional materials [] Provided toy/stuffed animal, coloring book to patient or family member [] Provided Communion [] Anointing/[place] [] Salvation [x] Completed spiritual assessment [] Other: Impact on Illness or Injury [] Angry [] Fearful [] Anxious [] Often cries [] Exhaustion [] Unable to work [] Unable to attend samaritan [] Unable to walk/stand [] Unable to read [] Unable to drive [] Unable to eat/drink [] Unable to sleep [] Unable to be with family [] Patient intubated [] Other: Summary had colton k suergy in some pain will recover at home / going home Time spent with patient 10 mins
[2021-09-23 10:59] VITALS: BP 104/59; PULSE 77; RESP 17; TEMP 37.3; O2SAT 90
[2021-09-23 13:17] VITALS: BP 104/59; PULSE 77; RESP 17; TEMP 37.3; O2SAT 90
--- NOTE | 2021-09-23 14:09 | PC.SOCIAL ---
pt wasnt a trigger but talked to her about her DME choice, and sent her walker order to HOME.
== END 2021-09-23 13:00 | disposition home or self-care (01) ==
LOC: MEDSURG 16:54
PROVIDERS: Anesthesiology; Physician Assistant; Admitting Provider Orthopaedic Surgery; PCP Family Medicine; Visit Provider Orthopaedic Surgery
PROC: (CPT 22612; principal; 2021-09-22 10:10)
DX: M48.062 Spinal stenosis, lumbar region with neurogenic claudication (principal); M43.16 Spondylolisthesis, lumbar region; M51.17 Intervertebral disc disorders with radiculopathy, lumbosacral region; R26.81 Unsteadiness on feet; D62 Acute posthemorrhagic anemia; J44.9 Chronic obstructive pulmonary disease, unspecified; K21.9 Gastro-esophageal reflux disease without esophagitis
CPT/HCPCS: 20930; 20936; 20939; 22633; 22634; 22842; 22853; 36415; 51702; 72020; 76000; 85014; 85018; 85025; 86850; 86900; 93005; 94640; 96372; 97161; 97530; C1713; G0378; J1100; J1644; J1650; J1885; J2405; J2704; J3010; J3370; J3490; J3535; J7030; P9041

== ENCOUNTER → 2021-10-26 11:40 | Outpatient (BNVA) | payer MEDICARE, MEDICAID, SELFPAY | PROVIDERS: PCP Family Medicine; Visit Provider Family Medicine | DX: D62 Acute posthemorrhagic anemia (principal); J44.1 Chronic obstructive pulmonary disease with (acute) exacerbation; M54.16 Radiculopathy, lumbar region; M54.2 Cervicalgia; I95.2 Hypotension due to drugs; R11.0 Nausea | CPT/HCPCS: 85025 ==

== ENCOUNTER → 2021-11-11 12:55 | Outpatient (BNVA) | payer MEDICARE, MEDICAID, SELFPAY | PROVIDERS: PCP Family Medicine; Visit Provider Orthopaedic Surgery | DX: Z48.89 Encounter for other specified surgical aftercare (principal); Z98.1 Arthrodesis status; M43.16 Spondylolisthesis, lumbar region | CPT/HCPCS: 72100 ==

== ENCOUNTER 2021-11-15 14:49 | Emergency (ER) | payer MEDICARE, MEDICAID, SELFPAY ==
[2021-11-15] VITALS (11 sets, daily range): BP systolic 89–112; BP diastolic 58–69; PULSE 0–60; RESP 0–16; TEMP 31.9; O2SAT 28–97
--- NOTE | 2021-11-15 | XRR_ITS ---
ADDENDUM XR/XR chest 1V portable [id number] Findings discussed with MICHAEL BIRMINGHAM at 11/16/2021 7:48 AM PEDIATRIC ALLERGIST. Addendum Dictated By: Walter Ortega Addendum Signed By: Walter Ortega Signed Date/Time: 11/16/21 0749 Addendum Cosigned By: PROCEDURE INFORMATION: Exam: XR Chest Exam date and time: 11/16/2021 5:00 PM Age: 66 years old Clinical indication: Other: Hypoxia TECHNIQUE: Imaging protocol: XR of the chest. Views: 1 view. COMPARISON: CR XR chest 1V portable [id number] 11/15/2021 3:13 PM FINDINGS: Tubes, catheters and devices: Endotracheal tube with tip approximately 3.5 cm above the johnie. Nasogastric tube with tip at the GE junction. Recommend advancement. Left internal jugular central venous access device with tip high in the right atrium. Lungs: There are extensive bilateral pulmonary opacities. Pleural spaces: No pleural effusion. No pneumothorax. Heart/Mediastinum: A prosthetic cardiac valve is seen. No gross evidence of pneumomediastinum. Bones/joints: Median sternotomy wires are seen. No gross fracture. XR/XR chest 1V portable [id number] IMPRESSION: 1. Nasogastric tube with tip at the GE junction. Recommend advancement. 2. Left internal jugular central venous access device with tip high in the right atrium. 3. Endotracheal tube with tip approximately 3.5 cm above the johnie. 4. Extensive bilateral pulmonary opacities suspicious for pneumonia (including COVID 19 pneumonia) or ARDS. Dictated By: Walter Ortega Signed By: Walter Ortega Signed Date/Time: 11/16/21 0744 DD/ 1700 MTDD
[2021-11-15 14:57] LABS: Alveolar-Arterial Oxygen Gradi 71.5 mmHg (5-10); Arterial Blood Gas Hematocrit 26.5 % (37-47); Blood Gas Allen Test Pos; Blood Gas Operator Identificat BD; Blood Gas Sample Site Brachial, left; Blood Gas Sample Type Arterial; Carboxyhemoglobin 5.5 %THgb (0.4-20.1); HCO3 ABG 16.3 mmol/L (22-26); HGB O2 Sat 62.2 % (95-100); Ionized Calcium Level - ABG 1.2 mmol/L (1.1-1.4); Methemoglobin 1.2 % (0.4-1.5); Oxygen Device AMBU; Oxygen Saturation ABG 66.7; PO2 ABG 58.7 mmHg (80.0-100.0); Potassium Level - ABG 4.4 mmol/L (3.5-5.0); Total Hemoglobin 8.7 g/dL (12-16)
--- NOTE | 2021-11-15 15:05 | CTR_ITS ---
PROCEDURE INFORMATION: Exam: CT Head Without Contrast Exam date and time: 11/15/2021 3:05 PM Age: 66 years old Clinical indication: Other: Found unresponsive; Additional info: Post rosc. Found unresponsive TECHNIQUE: Imaging protocol: Computed tomography of the head without contrast. Radiation optimization: All CT scans at this facility use at least one of these dose optimization techniques: automated exposure control; mA and/or kV adjustment per patient size (includes targeted exams where dose is matched to clinical indication); or iterative reconstruction. Other technique: STROKE PROTOCOL was implemented. COMPARISON: CT head wo con* [id number] 03/08/2021 3:00 PM RADIATION DOSE METRICS: Total DLP (mGy-cm): 877.53 FINDINGS: Brain: There is extensive subarachnoid hemorrhage bilaterally occupying the basilar cisterns in the interhemispheric fissure in the sylvian fissures bilaterally. There is subarachnoid hemorrhage also in the temporal and parietal regions bilaterally but more on the right than on the left. There also appears to be subdural blood along the right side of the falx and the right side of the tentorium. Cerebral ventricles: There is a small amount of intraventricular hemorrhage in both lateral ventricles. Ventricle size is not changed compared with 03/08/2021. Paranasal sinuses: Visualized sinuses are unremarkable. No fluid levels. Mastoid air cells: Visualized mastoid air cells are well aerated. Bones/joints: Unremarkable. No acute fracture. Soft tissues: Unremarkable. CT/CT head wo con* [id number] IMPRESSION: 1. Extensive subarachnoid hemorrhage. 2. Subdural hemorrhage along the falx and right tentorium also suspected. ASSESSMENT: ASPECTS ([place] Stroke Program Early CT Score) is 10. COMMENTS: THIS REPORT CONTAINS FINDINGS THAT MAY BE CRITICAL TO PATIENT CARE. The findings were acknowledged by Dr. Salvador at 5:41 PM CSTon 11/15/2021 through the operation center.
--- NOTE | 2021-11-15 15:06 | XR_ITS ---
WS: [id number] PORTABLE CHEST HISTORY: Post-intubation COMPARISON: 06/24/2021 Endotracheal tube is in position ending just above the johnie. There is dense airspace disease bilate rally but greatest throughout the RIGHT lung. Tiny lucency at the RIGHT costophrenic angle could be a tiny pneumothorax or Mach line. No midline shift. No pneumomediastinum. No pleural effusion. Cardiac size: Normal size heart. Cardiac valve replacement is noted. Mediastinum/Aorta: Atherosclerosis aorta. No osseous abnormality seen. Large amount of air in the stomach. XR/XR chest 1V portable [id number] IMPRESSION: 1. Endotracheal tube in good position and ends just above the johnie. 2. Diffuse bilateral airspace disease, RIGHT greater than LEFT. Consider ARDS and pneumonia. 3. Indeterminate tiny RIGHT costophrenic angle pneumothorax. Favor this may be an artifact. Notified Dr. Salvador at 11/15/2021 3:23 PM.
--- NOTE | 2021-11-15 15:12 | PC.NURSE ---
Pt brought by EMS unresponsive - compressions in progress. Pt in asystole. Staff present: Zaheer, RN; Rolando, RN; Baudilio, Airfield Engineer Officer; Sugar RT; Kyra RT; Dr Salvador Epi - 1444, 1447, 1451, 1453, 1456 Sodium BiCarb - 1453 ROSC - 1457 End of note
--- NOTE | 2021-11-15 15:57 | XR_ITS ---
WS: [id number] XR KUB portable [id number] REASON FOR EXAM: NG tube placement FINDINGS: Endotracheal tube present with the tip at the level of the aortic arch, above the johnie. Trans left jugular vein central venous catheter with the tip is below the cavoatrial junction. Nasogastric tube is been placed the tip lies at the level presumed to be in the distal esophagus just above the gastroesophageal junction. Diffuse reticular and groundglass lung opacities bilaterally. The stomach is moderately gaseously distended. There is distended small bowel. No free air or retrope ritoneal air. XR/XR KUB portable [id number] IMPRESSION: Diffuse bilateral lung disease. Significant stomach and small bowel distention. Nasogastric tube has not passed the gastroesophageal junction. It could be adva nced 7 to 8 cm to be within the fundus of the stomach.
--- NOTE | 2021-11-15 16:02 | ECG_ITS ---
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: : 1955 Requested By: Bandar Herrmann Order Number: [id number] Reading MD: JUDY CARDOSO Measurements Intervals [place] Rate: 125 P: MO: QRS: 205 QRSD: 153 T: 30 QT: 400 QTc: 577 Interpretive Statements ATRIAL FIBRILLATION WITH RAPID VENTRICULAR RESPONSE RIGHT AXIS DEVIATION [QRS AXIS > 100] RIGHT BUNDLE BRANCH BLOCK [120+ ms QRS DURATION, UPRIGHT V1, 40+ ms S IN I/aVL/V4/V5/V6] POSSIBLE ANTERIOR MYOCARDIAL INFARCTION , OF INDETERMINATE AGE [30 ms Q WAVE IN V3/V4, OR R < 0.2 mV IN V4] ST DEPRESSION, CONSIDER SUBENDOCARDIAL INJURY [0.1+ mV ST DEPRESSION] INTERPRETATION BASED ON A DEFAULT AGE OF 40 YEARS Compared to ECG 09/17/2021 12:59:30 Sinus rhythm no longer present Electronically Signed On 11-15-2021 19:50:11 ABSEILING INSTRUCTOR by JUDY CARDOSO [email or web address]
[2021-11-15 16:06] LABS: Basophils % 0.5 %; Eosinophils % 0.5 %; Hematocrit 27.3 % (37.0-47.0); Hemoglobin 7.6 g/dL (11.5-15.3); Lymphocytes # 3.6 10^3/uL (0.8-4.8); Lymphocytes % 45.1 %; Mean Corpuscular HGB Conc 27.8 g/dL (30.0-36.0); Mean Corpuscular Hemoglobin 31.9 pg (28.0-34.0); Mean Corpuscular Volume 114.7 fl (81-99); Mean Platelet Volume 10.6 fL (7.4-10.4); Monocytes # 0.2 10^3/uL (0.2-0.9); Monocytes % 2.4 %; Neutrophils # 3.72 10^3/uL (1.8-7.7); Neutrophils % 47.2 %; Nucleated Red Blood Cells # 0.1 /100WBC; Nucleated Red Blood Cells % 0.6 %; Platelet Count 121 10^3/cmm (130-400); Red Blood Count 2.38 10^6/uL (4.1-5.3); Red Cell Distribution Width 17.7 % (12.1-15.1); White Blood Count 7.9 10^3/uL (4.0-10.0)
--- NOTE | 2021-11-15 16:06 | ED_ITS ---
Documented by User: Bandar Salvador DO 11/16/21 06:33 HPI - General Adult General: Chief complaint: Cardiac Arrest/CPR Stated complaint: CODE Time Seen by Provider: 11/15/21 16:00 Source: family and old records reviewed Mode of arrival: EMS Limitations: other (Cardiorespiratory arrest) History of Present Illness: 66-year-old female presents emergency room in cardiorespiratory arrest. EMS reports that she was found down in the field there was bystander CPR for an undetermined length of time. They estimated to be around 20 minutes bed called for med control at that time they had a shockable rhythm and had tried to defibrillator which resulted in asystole. On arrival here she is intubated. CPR is in progress. The only history is from old records reviewed on the chart. She does have a history of COPD and chronic neck and back pain. She previously had a mitral valve replacement. Per EMS she been complaining of shortness of breath prior to cardiorespiratory arrest. Onset (ago): minute(s) (est 90) Associated symptoms: Reports short of breath Review of Systems General: Reports: ROS unobtainable due to endotracheal tube and ROS unobtainable due to medical condition [facility] ED 2 PFSH: Medical History (Updated 11/16/21 @ 06:33 by Bandar Salvador DO) Chronic nausea COPD (chronic obstructive pulmonary disease) Not in exacerbation GERD (gastroesophageal reflux disease) History of TMJ disorder Left sided surgery Intervertebral disc disorder with radiculopathy of lumbosacral region Joint instability Spinal stenosis, lumbar region with neurogenic claudication Spondylolisthesis of lumbar region Surgical History History of cervical spinal surgery 1995 C5-C6 fusion [employer], [place] History of hysterectomy History of mitral valve replacement with bioprosthetic valve History of open heart surgery Open heart surgery with valve replacement, performed in [place], [place] by Dr. Taylor, 2015 History of tonsillectomy History of tubal ligation Family History Other Alzheimer's disease No pertinent family history Social History Smoking and tobacco status: current every day smoker cigarettes Packs smoked per day: 1 Alcohol intake: never Lives independently: No (LIVES WITH BROTHER) Household members: family Marital status: Current occupational status: disabled History of recent travel: No [facility]: due to endotracheal tube Physical Exam Const: EXAM LIMITATIONS: other limitations GENERAL APPEARANCE: patient mechanically ventilated OTHER: Cardiac arrest CPR in progress HENMT: COMMON NORMALS: normocephalic and atraumatic HEAD & SCALP: n ormocephalic and atraumatic MOUTH: Normal oral and palatal mucosa present, lip normal and tongue normal Eye: PUPIL: Yes Dilated pupils (Fixed nonresponsive to light) bilaterally Neck/C-Spine: COMMON NORMALS: no lymphadenopathy GENERAL: Yes JVD Lymph: LYMPHATIC: no lymphadenopathy noted Chest: COMMONS NORMALS: normal inspection of the chest Resp: AUSCULTATION: crackles and rales OTHER: No respiratory effort patient intubated on mechanical ventilation. No IV sedation was being provided Cardio: JUGULAR VENOUS DISTENTION: JVD OTHER: Initially patient in cardiac arrest we were able to on pulse checks visualize cardiac activity by ultrasound and then reestablish a palpable pulse. Patient has a 2/6 murmur. At various times she was both tachycardic and bradycardic. GI: AUSCULTATION: Yes Absent bowel sounds PALPATION: Yes Guarding due to palpation present (GI) (Patient developed peritoneal signs as ER stay developed) and Yes Rigid due to palpation PERCUSSION: tympanic to percussion Extremity: COMMON NORMALS: no pedal edema GENERAL: Yes cyanosis, Yes mottling, Yes pallor and Yes pulses abnormal Neuro: SENSORIUM/ORIENTATION: Yes obtunded Skin: COMMON NORMALS: no rashes or lesions noted GENERAL SKIN EXAM: no rashes or lesions noted, mottling and pallor Procedures Central Line Placement Left IJ: Time Out Performed: Yes Patient Placed on Monitor/Pulse Ox: Yes MD Prep: mask, gown and gloves Central Line Prep: Chlorhexidine scrub Ultrasound Used for Placement: Yes Central Line Lumen Inserted: triple Post Procedure: sutured in place, good blood return, all ports aspirated, flushed, capped and sterile dressing applied Post Procedure X-Ray: tip of catheter in good position and no pneumothorax seen Patient Tolerated Procedure: well Complications: none Intubation Additional Comments: Nursing staff had difficulty placement with the NG tube using the fiberoptic laryngoscope visualized the ET tube visualized esophagus placed the NG tube using fiberoptic scope under direct visualized visualization advanced and confirmed placement by infiltration with air and auscultation of the epigastric region. Course Vital Signs: Vital signs: Vital Signs Temperature 89.5 F L 11/15/21 18:18 Pulse Rate 0 L 11/15/21 20:42 Respiratory Rate 0 L 11/15/21 20:42 Blood Pressure 89/58 11/15/21 18:18 Pulse Oximetry 28 L 11/15/21 19:17 MDM - General Adult Medical Decision Making Patient arrived in cardiac respiratory arrest. ACLS protocols were followed see the code sheet. At a pulse check we were considering ceasing efforts but was able to visualize cardiac activity by ultrasound. Continued another round of 2 minutes of CPR after epinephrine and was able to establish a pulse. Then worked to stabilize patient initial blood pressures was in the 40s and 50s systolic she was started on epi and Levophed which was titrated up as well as given IV fluids. Central line was placed and that the left IJ there was an EJ on the right. As we were completing the central line patient went into cardiac arrest again and we restarted ACLS protocols were able to achieve ROSC. Patient was also noted to be hypocalcemicwas given sodium bicarb as well as calcium first hemoglobin was 7.7 and she was given 2 units of O-. Blood pressure improved and the patient was stabilized to point where we can safely bring her to the CT scanner. CT head CTA chest and CT abdomen and pelvis with contrast were completed. CT of the head shows massive subarachnoid hemorrhageAs well as a question of subdural hemorrhage. CT of the abdomen shows air-fluid levels in the bowel suspicious for bowel obstruction with no transition point seen. I suspect patient has bowel ischemia from prolonged downtime. Initial labs are quite diarrhea. Her lactic is 11.5 her pH is 6.8 with a PCO2 of 91 and a PO2 of 58 7. I did confirm placement of the ET tube with fiberoptic scope after reviewing blood gases. Additionally oxygen saturations were in the 90s at that point. Breath sounds were noted and patient had good perfusion. Dr. Cohen was consulted for the hospitalist service. Given the patient's CT findings is quite apparent that her prognosis was extremely poor and there is no meaningful potential for recovery given her downtime the extent of her subarachnoid hemorrhage and other organ systems involved. Dr. Cohen as written a note placed on the chart. Also consulted Dr. Sosa who is assuming care of the patient at the end of my shift. All 3 physicians agree that the patient is terminal at this point and that further efforts are futile. We made several attempts to contact family members including calling family members that were listed in searching the EMR for other family members that might be associated with patient. [facility] was contacted to assist us in finding the patient's brother. They were unsuccessful as well. Care was turned over to Dr. Sosa at change of shift discussed the case reviewed the findings to this point. We both agree at this point the patient should be transitioned to comfort cares. Dr. Cohen also concurs and the plan at the time of transfer of care to Dr. Sosa was terminally extubated in the emergency room. Patient presents here after a subarachnoid hemorrhage and a cardiac arrest. Line came on and spoke with Dr. Shantel Hardy patient is becoming hypotensive and bradycardic likely herniated. Decision was made to extubate and comfort care. Patient extubated roughly at 1850 she did pass away with time of at 1925 Medical Records I reviewed the patient's medical records. Lab Data I reviewed the patient's lab results. : 11/15/21 15:53 11/15/21 15:[address] 11/15/21 15:05 IMPRESSION: 1. Extensive subarachnoid hemorrhage. 2. Subdural hemorrhage along the falx and right tentorium also suspected. ASSESSMENT: ASPECTS ([place] Stroke Program Early CT Score) is 10. COMMENTS: THIS REPORT CONTAINS FINDINGS THAT MAY BE CRITICAL TO PATIENT CARE. The findings were acknowledged by Dr. Salvador at 5:41 PM CSTon 11/15/2021 through the operation center. KUB X-Ray 11/15/21 15:57 IMPRESSION: Diffuse bilateral lung disease. Significant stomach and small bowel distention. Nasogastric tube has not passed the gastroesophageal junction. It could be advan chava 7 to 8 cm to be within the fundus of the stomach. Chest/Abdomen/Pelvis CT 11/15/21 16:46 IMPRESSION: 1. Negative for pulmonary embolus. 2. Endotracheal tube and enteric tube seen in place. 3. Sternotomy wires. 4. Diffuse bilateral airspace infiltrates. 5. Small bilateral pleural effusions. IMPRESSION: 1. Dilated small bowel loops to 3.4 cm with fluid levels suggestive of an obstruction, potentially high-grade given the degree of dilation, negative for transition point. Ileus or enteritis may also be considerations given lack of a defined transition point. 2. Prominent fluid in the ascending colon suggestive of a colitis. 3. Bower catheter in the urinary bladder. 4. Lumbar spine surgical hardware. 5. Left kidney upper pole somewhat wedge-shaped area of decreased attenuation series 3, image 26 perhaps reflecting a renal infarct with a similar finding seen in the right kidney interpolar region series 3, image 30. 6. Heterogeneous appearance of the liver likely related to bolus timing. Laboratory Results WBC 7.9 10^3/uL (4.0-10.0) 11/15/21 15:53 RBC 2.38 10^6/uL (4.1-5.3) L 11/15/21 15:53 Hgb 7.6 g/dL (11.5-15.3) L 11/15/21 15:53 Hct 27.3 % (37.0-47.0) L 11/15/21 15:53 MCV 114.7 fl (81-99) H 11/15/21 15:53 MCH 31.9 pg (28.0-34.0) 11/15/21 15:53 MCHC 27.8 g/dL (30.0-36.0) L 11/15/21 15:53 RDW 17.7 % (12.1-15.1) H 11/15/21 15:53 Plt Count 121 10^3/cmm (130-400) L 11/15/21 15:53 MPV 10.6 fL (7.4-10.4) H 11/15/21 15:53 Neut % (Auto) 47.2 % 11/15/21 15:53 Lymph % (Auto) 45.1 % 11/15/21 15:53 [place] % (Auto) 2.4 % 11/15/21 15:53 Eos % (Auto) 0.5 % 11/15/21 15:53 Baso % (Auto) 0.5 % 11/15/21 15:53 Neut # (Auto) 3.72 10^3/uL (1.8-7.7) 11/15/21 15:53 Lymph # (Auto) 3.6 10^3/uL (0.8-4.8) 11/15/21 15:53 [place] # (Auto) 0.2 10^3/uL (0.2-0.9) 11/15/21 15:53 Eos # (Auto) 0.0 10^3/uL (0.0-0.8) 11/15/21 15:53 Baso # (Auto) 0.0 10^3/uL (0.0-0.1) 11/15/21 15:53 Nucleated RBC % (auto) 0.6 % 11/15/21 15:53 Nucleated RBCs # 0.1 /100WBC 11/15/21 15:53 Specimen Type Arterial 11/15/21 16:34 Sample Site Radial, right 11/15/21 16:34 ABG pH 7.03 (7.35-7.45) L* 11/15/21 16:34 ABG pCO2 56.2 mmHg (35-45) H 11/15/21 16:34 ABG pO2 61.2 mmHg (80.0-100.0) L 11/15/21 16:34 ABG HCO3 14.7 mmol/L (22-26) L 11/15/21 16:34 ABG O2 Saturation 66.7 11/15/21 14:50 ABG Base Excess -15.9 mmol/L (-2.0-2.0) L 11/15/21 16:34 Helio Test Pos 11/15/21 16:34 A-a O2 Gradient 71.5 mmHg (5-10) H 11/15/21 14:50 Hematocrit 32.3 % (37-47) L 11/15/21 16:34 Hgb O2 Saturation 62.2 % (95-100) L 11/15/21 14:50 Carboxyhemoglobin 5.5 %THgb (0.4-20.1) 11/15/21 14:50 Methemoglobin 1.2 % (0.4-1.5) 11/15/21 14:50 Total Hemoglobin 8.7 g/dL (12-16) L 11/15/21 14:50 Sodium 143.0 mmol/L (131-143) 11/15/21 14:50 Potassium 4.4 mmol/L (3.5-5.0) 11/15/21 14:50 Glucose 264.0 mg/dL (70-115) H 11/15/21 14:50 Ionized Calcium 1.2 mmol/L (1.1-1.4) 11/15/21 14:50 O2 Delivery Device Vent 11/15/21 16:34 FiO2 100.0 % 11/15/21 16:34 Tidal Volume 0.35 11/15/21 16:34 PEEP 5.0 cmH20 11/15/21 16:34 [place] St[employer] Machine Operator ID Ed 11/15/21 16:34 Sodium 151 mmol/L (136-145) H 11/15/21 15:53 Potassium 4.2 mmol/L (3.5-5.1) 11/15/21 15:53 Chloride 112 mmol/L (98-107) H 11/15/21 15:53 Carbon Dioxide 20 mmol/L (22-29) L 11/15/21 15:53 Anion Gap 23.2 (5-19) H 11/15/21 15:53 BUN 16 mg/dL (8-23) 11/15/21 15:53 Creatinine 1.0 mg/dL (0.5-0.9) H 11/15/21 15:53 GFR Calculation 55.5 mL/min (90-130) L 11/15/21 15:53 Glucose 231 mg/dL (65-115) H 11/15/21 15:53 Calculated Osmolality 321 mOsm/kg (285-295) H 11/15/21 15:53 Lactic Acid 11.7 mmol/L (0.5-2.2) H* 11/15/21 15:53 Calcium 5.7 mg/dL (8.5-10.5) L* 11/15/21 15:53 Total Bilirubin 0.2 mg/dL (0.15-1.2) 11/15/21 15:53 AST 34 U/L (0-32) H 11/15/21 15:53 ALT 16 U/L (0-33) 11/15/21 15:53 Alkaline Phosphatase 141 IU/L (35-105) H 11/15/21 15:53 Troponin T Baseline 44 ng/L (0-10) H 11/15/21 15:53 Total Protein 3.2 g/dL (6.6-8.7) L 11/15/21 15:53 Albumin 1.9 g/dL (3.5-5.2) L 11/15/21 15:53 Globulin 1.3 g/dL (1.3-4.6) 11/15/21 15:53 Lipase 18 U/L (13-60) 11/15/21 15:53 Urine Color Yellow (Yellow) 11/15/21 15:48 Urine Appearance Clear (CLEAR) 11/15/21 15:48 Urine pH 6 (5-7) 11/15/21 15:48 Ur Specific [place] 1.015 (1.005-1.030) 11/15/21 15:48 Urine Protein 1+ (Negative) H 11/15/21 15:48 Urine Glucose (UA) Norm (Normal) 11/15/21 15:48 Urine Ketones Negative (Negative) 11/15/21 15:48 Urine Blood Neg (Negative) 11/15/21 15:48 Urine Nitrate Negative (Negative) 11/15/21 15:48 Urine Bilirubin Neg (Negative) 11/15/21 15:48 Urine Urobilinogen 1 mg/dL (Negative) H 11/15/21 15:48 Ur Leukocyte Esterase Negative (Negative) 11/15/21 15:48 Urine RBC None /hpf (0-2) 11/15/21 15:48 Urine WBC None /hpf (0-5) 11/15/21 15:48 Ur Squamous Epith Cells None /hpf (0-5) 11/15/21 15:48 Amorphous Sediment Not Reportable 11/15/21 15:48 Urine Bacteria Trace /hpf (NONE) 11/15/21 15:48 Serum Ketones Negative (Negative) 11/15/21 15:53 Coronavirus 229E (PCR) Not detected (NOT DETECT) 11/15/21 16:09 SARS-CoV-2 (PCR) Not detected (NOT DETECT) 11/15/21 16:09 Critical Care Time Critical Care Time: Total Critical Care Time: 120 Discharge Plan Discharge Patient Disposition: Clinical Impression: Subarachnoid hemorrhage, Cardiac arrest, Ischemic bowel syndrome, Acute hypernatremia, Hypocalcemia, Anemia Coding Level of Care Code ED Cultural Historian for Chg Fwd Documented by User: Phillip Sosa MD 11/15/21 19:27 HPI - General Adult General: Chief complaint: Cardiac Arrest/CPR Stated complaint: CODE Time Seen by Provider: 11/15/21 16:00 PFSH ED PFSH: Medical History (Updated 11/16/21 @ 06:33 by Bandar Salvador DO) Chronic nausea COPD (chronic obstructive pulmonary disease) Not in exacerbation GERD (gastroesophageal reflux disease) History of TMJ disorder Left sided surgery Intervertebral disc disorder with radiculopathy of lumbosacral region Joint instability Spinal stenosis, lumbar region with neurogenic claudication Spondylolisthesis of lumbar region Surgical History History of cervical spinal surgery 1996 C5-C6 fusion [employer], [place] History of hysterectomy History of mitral valve replacement with bioprosthetic valve History of open heart surgery Open heart surgery with valve replacement, performed in [place], [place] by Dr. Taylor, 2015 History of tonsillectomy History of tubal ligation Family History Other Alzheimer's disease No pertinent family history Social History Smoking and tobacco status: current every day smoker cigarettes Packs smoked per day: 1 Alcohol intake: never Lives independently: No (LIVES WITH BROTHER) Household members: family Marital status: Current occupational status: disabled History of recent travel: No Course Reevaluation(s): Reevaluation #1: I discussed this case with Dr. Barahona along with Dr. Hardy. I reviewed all the patient's films and did a physical exam. She has an extensive subarachnoid hemorrhage with massive pulmonary edema as well. Patient had already had a cardiac arrest. Her subarachnoid hemorrhage and disease processes not sustainable with life at this time. Attempted multiple times of left hour to get a hold of family was not able to. I am in agreements with Dr. Hayley Cohen that comfort care is the best route forward. Patient was extubated here at 1850 Time: 18:45 Vital Signs: Vital signs: Vital Signs Temperature 89.5 F L 11/15/21 18:18 Pulse Rate 0 L 11/15/21 20:42 Respiratory Rate 0 L 11/15/21 20:42 Blood Pressure 89/58 11/15/21 18:18 Pulse Oximetry 28 L 11/15/21 19:17 [facility] - General Adult Medical Decision Making Patient presents here after a subarachnoid hemorrhage and a cardiac arrest. Line came on and spoke with Dr. Shantel Hardy patient is becoming hypotensive and bradycardic likely herniated. Decision was made to extubate and comfort care. Patient extubated roughly at 1850 she did pass away with time of at 1925 Lab Data : 11/15/21 15:53 11/15/21 15:[address] 11/15/21 15:05 IMPRESSION: 1. Extensive subarachnoid hemorrhage. 2. Subdural hemorrhage along the falx and right tentorium also suspected. ASSESSMENT: ASPECTS ([place] Stroke Program Early CT Score) is 10. COMMENTS: THIS REPORT CONTAINS FINDINGS THAT MAY BE CRITICAL TO PATIENT CARE. The findings were acknowledged by Dr. Salvador at 5:41 PM CSTon 11/15/2021 through the operation center. KUB X-Ray 11/15/21 15:57 IMPRESSION: Diffuse bilateral lung disease. Significant stomach and small bowel distention. Nasogastric tube has not passed the gastroesophageal junction. It could be advanced 7 to 8 cm to be within the fundus of the stomach. Chest/Abdomen/Pelvis CT 11/15/21 16:46 IMPRESSION: 1. Negative for pulmonary embolus. 2. Endotracheal tube and enteric tube seen in place. 3. Sternotomy wires. 4. Diffuse bilateral airspace infiltrates. 5. Small bilateral pleural effusions. IMPRESSION: 1. Dilated small bowel loops to 3.4 cm with fluid levels suggestive of an obstruction, potentially high-grade given the degree of dilation, negative for transition point. Ileus or enteritis may also be considerations given lack of a defined transition point. 2. Prominent fluid in the ascending colon suggestive of a colitis. 3. Bower catheter in the urinary bladder. 4. Lumbar spine surgical hardware. 5. Left kidney upper pole somewhat wedge-shaped area of decreased attenuation series 3, image 26 perhaps reflecting a renal infarct with a similar finding seen in the right kidney interpolar region series 3, image 30. 6. Heterogeneous appearance of the liver likely related to bolus timing. Laboratory Results WBC 7.9 10^3/uL (4.0-10.0) 11/15/21 15:53 RBC 2.38 10^6/uL (4.1-5.3) L 11/15/21 15:53 Hgb 7.6 g/dL (11.5-15.3) L 11/15/21 15:53 Hct 27.3 % (37.0-47.0) L 11/15/21 15:53 MCV 114.7 fl (81-99) H 11/15/21 15:53 MCH 31.9 pg (28.0-34.0) 11/15/21 15:53 MCHC 27.8 g/dL (30.0-36.0) L 11/15/21 15:53 RDW 17.7 % (12.1-15.1) H 11/15/21 15:53 Plt Count 121 10^3/cmm (130-400) L 11/15/21 15:53 MPV 10.6 fL (7.4-10.4) H 11/15/21 15:53 Neut % (Auto) 47.2 % 11/15/21 15:53 Lymph % (Auto) 45.1 % 11/15/21 15:53 [place] % (Auto) 2.4 % 11/15/21 15:53 Eos % (Auto) 0.5 % 11/15/21 15:53 Baso % (Auto) 0.5 % 11/15/21 15:53 Neut # (Auto) 3.72 10^3/uL (1.8-7.7) 11/15/21 15:53 Lymph # (Auto) 3.6 10^3/uL (0.8-4.8) 11/15/21 15:53 [place] # (Auto) 0.2 10^3/uL (0.2-0.9) 11/15/21 15:53 Eos # (Auto) 0.0 10^3/uL (0.0-0.8) 11/15/21 15:53 Baso # (Auto) 0.0 10^3/uL (0.0-0.1) 11/15/21 15:53 Nucleated RBC % (auto) 0.6 % 11/15/21 15:53 Nucleated RBCs # 0.1 /100WBC 11/15/21 15:53 Specimen Type Arterial 11/15/21 16:34 Sample Site Radial, right 11/15/21 16:34 ABG pH 7.03 (7.35-7.45) L* 11/15/21 16:34 ABG pCO2 56.2 mmHg (35-45) H 11/15/21 16:34 ABG pO2 61.2 mmHg (80.0-100.0) L 11/15/21 16:34 ABG HCO3 14.7 mmol/L (22-26) L 11/15/21 16:34 ABG O2 Saturation 66.7 11/15/21 14:50 ABG Base Excess -15.9 mmol/L (-2.0-2.0) L 11/15/21 16:34 Helio Test Pos 11/15/21 16:34 A-a O2 Gradient 71.5 mmHg (5-10) H 11/15/21 14:50 Hematocrit 32.3 % (37-47) L 11/15/21 16:34 Hgb O2 Saturation 62.2 % (95-100) L 11/15/21 14:50 Carboxyhemoglobin 5.5 %THgb (0.4-20.1) 11/15/21 14:50 Methemoglobin 1.2 % (0.4-1.5) 11/15/21 14:50 Total Hemoglobin 8.7 g/dL (12-16) L 11/15/21 14:50 Sodium 143.0 mmol/L (131-143) 11/15/21 14:50 Potassium 4.4 mmol/L (3.5-5.0) 11/15/21 14:50 Glucose 264.0 mg/dL (70-115) H 11/15/21 14:50 Ionized Calcium 1.2 mmol/L (1.1-1.4) 11/15/21 14:50 O2 Delivery Device Vent 11/15/21 16:34 FiO2 100.0 % 11/15/21 16:34 Tidal Volume 0.35 11/15/21 16:34 PEEP 5.0 cmH20 11/15/21 16:34 [place] St[employer] Machine Operator ID Ed 11/15/21 16:34 Sodium 151 mmol/L (136-145) H 11/15/21 15:53 Potassium 4.2 mmol/L (3.5-5.1) 11/15/21 15:53 Chloride 112 mmol/L (98-107) H 11/15/21 15:53 Carbon Dioxide 20 mmol/L (22-29) L 11/15/21 15:53 Anion Gap 23.2 (5-19) H 11/15/21 15:53 BUN 16 mg/dL (8-23) 11/15/21 15:53 Creatinine 1.0 mg/dL (0.5-0.9) H 11/15/21 15:53 GFR Calculation 55.5 mL/min (90-130) L 11/15/21 15:53 Glucose 231 mg/dL (65-115) H 11/15/21 15:53 Calculated Osmolality 321 mOsm/kg (285-295) H 11/15/21 15:53 Lactic Acid 11.7 mmol/L (0.5-2.2) H* 11/15/21 15:53 Calcium 5.7 mg/dL (8.5-10.5) L* 11/15/21 15:53 Total Bilirubin 0.2 mg/dL (0.15-1.2) 11/15/21 15:53 AST 34 U/L (0-32) H 11/15/21 15:53 ALT 16 U/L (0-33) 11/15/21 15:53 Alkaline Phosphatase 141 IU/L (35-105) H 11/15/21 15:53 Troponin T Baseline 44 ng/L (0-10) H 11/15/21 15:53 Total Protein 3.2 g/dL (6.6-8.7) L 11/15/21 15:53 Albumin 1.9 g/dL (3.5-5.2) L 11/15/21 15:53 Globulin 1.3 g/dL (1.3-4.6) 11/15/21 15:53 Lipase 18 U/L (13-60) 11/15/21 15:53 Urine Color Yellow (Yellow) 11/15/21 15:48 Urine Appearance Clear (CLEAR) 11/15/21 15:48 Urine pH 6 (5-7) 11/15/21 15:48 Ur Specific [place] 1.015 (1.005-1.030) 11/15/21 15:48 Urine Protein 1+ (Negative) H 11/15/21 15:48 Urine Glucose (UA) Norm (Normal) 11/15/21 15:48 Urine Ketones Negative (Negative) 11/15/21 15:48 Urine Blood Neg (Negative) 11/15/21 15:48 Urine Nitrate Negative (Negative) 11/15/21 15:48 Urine Bilirubin Neg (Negative) 11/15/21 15:48 Urine Urobilinogen 1 mg/dL (Negative) H 11/15/21 15:48 Ur Leukocyte Esterase Negative (Negative) 11/15/21 15:48 Urine RBC None /hpf (0-2) 11/15/21 15:48 Urine WBC None /hpf (0-5) 11/15/21 15:48 Ur Squamous Epith Cells None /hpf (0-5) 11/15/21 15:48 Amorphous Sediment Not Reportable 11/15/21 15:48 Urine Bacteria Trace /hpf (NONE) 11/15/21 15:48 Serum Ketones Negative (Negative) 11/15/21 15:53 Coronavirus 229E (PCR) Not detected (NOT DETECT) 11/15/21 16:09 SARS-CoV-2 (PCR) Not detected (NOT DETECT) 11/15/21 16:09 Critical Care Time Critical Care Time: Critical Care Time: Yes Total Critical Care Time: 75 Attestation: The high probability of a clinically significant, sudden or life threatening deterioration of the patient's [cv/neuro] system(s) required my full and direct attention, intervention and personal management. The critical care time is as shown. This time is in addition to time spent performing any reported procedures but includes the following: [x] Data and vital sign review and interpretation [x] Patient assessment, examination and intervention [x] Documentation [x] Medication orders and management Discharge Plan Discharge Patient Disposition: Clinical Impression: Subarachnoid hemorrhage, Cardiac arrest, Ischemic bowel syndrome, Acute hypernatremia, Hypocalcemia, Anemia Coding Level of Care Code ED Cultural Historian for [facility] Del Carmen Jacinto
[2021-11-15 16:26] LABS: Ketone (Acetest) Serum Negative (Negative)
[2021-11-15 16:33] LABS: Alanine Aminotransferase 16 U/L (0-33); Albumin Level 1.9 g/dL (3.5-5.2); Alkaline Phosphatase 141 IU/L (35-105); Anion Gap 23.2 (5-19); Aspartate Amino Transferase 34 U/L (0-32); Blood Urea Nitrogen 16 mg/dL (8-23); Carbon Dioxide 20 mmol/L (22-29); Chloride 112 mmol/L (98-107); Globulin 1.3 g/dL (1.3-4.6); Glomerular Filtration Rate 55.5 mL/min (90-130); Glucose 231 mg/dL (65-115); Lipase 18 U/L (13-60); Osmolality Calculated 321 mOsm/kg (285-295); Potassium 4.2 mmol/L (3.5-5.1); Sodium 151 mmol/L (136-145); Total Bilirubin 0.2 mg/dL (0.15-1.2); Total Protein 3.2 g/dL (6.6-8.7); Troponin(5th) Baseline 44 ng/L (0-10)
[2021-11-15 16:34] LABS: Calcium 5.7 mg/dL (8.5-10.5)
[2021-11-15 16:36] LABS: Lactic Sepsis W/Reflex 11.7 mmol/L (0.5-2.2)
[2021-11-15 16:44] LABS: ABG PCO2 56.2 mmHg (35-45); Arterial Blood Gas Hematocrit 32.3 % (37-47); Base Excess ABG -15.9 mmol/L (-2.0-2.0); Blood Gas Allen Test Pos; Blood Gas Operator Identificat ED; Blood Gas Sample Site Radial, right; Blood Gas Sample Type Arterial; Blood Gas Tidal Volume 0.35; HCO3 ABG 14.7 mmol/L (22-26); Oxygen Device VENT; PO2 ABG 61.2 mmHg (80.0-100.0)
[2021-11-15 16:45] LABS: ABG PCO2 91.1 mmHg (35-45); ABG PH Result 6.86 (7.35-7.45)
[2021-11-15 16:45] LABS: ABG PH Result 7.03 (7.35-7.45)
--- NOTE | 2021-11-15 16:46 | CTR_ITS ---
PROCEDURE INFORMATION: Exam: CTA Chest With Contrast Exam date and time: 11/15/2021 4:46 PM Age: 66 years old Clinical indication: Other: Unresponsive. Intubated; Shortness of breath; Additional info: Cardiac arrrest/hypoxia TECHNIQUE: Imaging protocol: Computed tomographic angiography of the chest with contrast. 3D rendering (Not supervised by radiologist): MIP and/or 3D reconstructed images were created by the technologist. Radiation optimization: All CT scans at this facility use at least one of these dose optimization techniques: automated exposure control; mA and/or kV adjustment per patient size (includes targeted exams where dose is matched to clinical indication); or iterative reconstruction. Contrast material: OMNI 350; Contrast volume: 95 ml; Contrast route: INTRAVENOUS (IV); COMPARISON: CT chest abd pel wo con 03/08/2021 3:10 PM RADIATION DOSE METRICS: Total DLP (mGy-cm): 1248.93 FINDINGS: Tubes, catheters and devices: Endotracheal tube and enteric tube seen in place. Pulmonary arteries: Normal. No pulmonary emboli. Aorta: Unremarkable. No aortic aneurysm. No aortic dissection. Lungs: Diffuse bilateral airspace infiltrates. Pleural spaces: Small bilateral pleural effusions. Heart: Unremarkable. No cardiomegaly. No pericardial effusion. Lymph nodes: Unremarkable. No enlarged lymph nodes. Bones/joints: Sternotomy wires. Soft tissues: Unremarkable. PROCEDURE INFORMATION: Exam: CT Abdomen And Pelvis With Contrast Exam date and time: 11/15/2021 4:46 PM Age: 66 years old Clinical indication: Other: Unresponsive. Intubated; Shortness of breath; Additional info: Cardiac arrrest/hypoxia TECHNIQUE: Imaging protocol: Computed tomography of the abdomen and pelvis with contrast. Radiation optimization: All CT scans at this facility use at least one of these dose optimization techniques: automated exposure control; mA and/or kV adjustment per patient size (includes targeted exams where dose is matched to clinical indication); or iterative reconstruction. Contrast material: OMNI 350; Contrast volume: 95 ml; Contrast route: INTRAVENOUS (IV); COMPARISON: CT chest abd pel wo con 03/08/2021 3:10 PM RADIATION DOSE METRICS: Total DLP (mGy-cm): 1248.93 FINDINGS: Liver: Heterogeneous appearance of the liver likely related to bolus timing. Gallbladder and bile ducts: Normal. No calcified stones. No ductal dilation. Pancreas: Normal. No ductal dilation. Spleen: Normal. No splenomegaly. Adrenal glands: Normal. No mass. Kidneys and ureters: Left kidney upper pole somewhat wedge-shaped area of decreased attenuation series 3, image 26 perhaps reflecting a renal infarct with a similar finding seen in the right kidney interpolar region series 3, image 30. Stomach and bowel: Dilated small bowel loops to 3.4 cm with fluid levels suggestive of an obstruction, potentially high-grade given degree of dilation, negative for transition point. Ileus or enteritis may also be considerations given lack of a defined transition point. Prominent fluid in the ascending colon suggestive of a colitis. Appendix: No evidence of appendicitis. Intraperitoneal space: Unremarkable. No free air. No significant fluid collection. Vasculature: Unremarkable. No abdominal aortic aneurysm. Lymph nodes: Unremarkable. No enlarged lymph nodes. Urinary bladder: Bower catheter in the urinary bladder. Reproductive: Unremarkable as visualized. Bones/joints: Lumbar spine surgical hardware. Soft tissues: Unremarkable. CT/CT angio chest w abd pel w con IMPRESSION: 1. Negative for pulmonary embolus. 2. Endotracheal tube and enteric tube seen in place. 3. Sternotomy wires. 4. Diffuse bilateral airspace infiltrates. 5. Small bilateral pleural effusions. IMPRESSION: 1. Dilated small bowel loops to 3.4 cm with fluid levels suggestive of an obstruction, potentially high-grade given the degree of dilation, negative for transition point. Ileus or enteritis may also be considerations given lack of a defined transition point. 2. Prominent fluid in the ascending colon suggestive of a colitis. 3. Bower catheter in the urinary bladder. 4. Lumbar spine surgical hardware. 5. Left kidney upper pole somewhat wedge-shaped area of decreased attenuation series 3, image 26 perhaps reflecting a renal infarct with a similar finding seen in the right kidney interpolar region series 3, image 30. 6. Heterogeneous appearance of the liver likely related to bolus timing.
[2021-11-15] MEDS: iohexol 350 mg/mL 100 mL Btl IV (17:42)
[2021-11-15] MEDS: EPINEPHrine 2.5 MG in sodium chloride 0.9% 250 ML 10 MG IV (17:49)
[2021-11-15 17:51] LABS: Reflex Lactate Order REFLEX LACTIC ORDERD
[2021-11-15] MEDS: sodium chloride 0.9% 1,000 ML 4 ML IV (17:53)
--- NOTE | 2021-11-15 18:02 | ECG_ITS ---
[facility] Test Date: 2021-11-15 Pat Name: Felipa Winslow Department: Room: Gender: Female Executive Director Of Marketing: : 1955 Requested By: Bandar Herrmann Order Number: [id number] Reading MD: JUDY CARDOSO Measurements Intervals [place] Rate: 112 P: UT: QRS: 186 QRSD: 134 T: 29 QT: 378 QTc: 517 Interpretive Statements ATRIAL FIBRILLATION WITH RAPID VENTRICULAR RESPONSE RIGHT AXIS DEVIATION [QRS AXIS > 100] RIGHT BUNDLE BRANCH BLOCK [120+ ms QRS DURATION, UPRIGHT V1, 40+ ms S IN I/aVL/V4/V5/V6] ANTEROSEPTAL MYOCARDIAL INFARCTION , OF INDETERMINATE AGE [40+ ms Q WAVE IN V1-V4] ST DEPRESSION, CONSIDER SUBENDOCARDIAL INJURY [0.1+ mV ST DEPRESSION] Compared to ECG 11/15/2021 15:01:59 No significant changes Electronically Signed On 11-15-2021 19:51:59 MELTING SUPERVISOR by JUDY CARDOSO [email or web address]
--- NOTE | 2021-11-15 18:12 | PC.NURSE ---
Achieved ROSC at 1457 Lost pulse 1549 Epi - 1550, 1553, 1556 Sodium BiCarb - 1551 Achieved ROSC at 1556 Staff present: Zaheer RN, Abbi RN, Rolando RN, Kyra RT, Nargis RN, Baudilio - Education Finance Processor, [place] - [facility] Student, Dr Salvador End of Note
[2021-11-15 18:21] LABS: Specific Gravity, Urine 1.015 (1.005-1.030); Urine Appearance Clear (CLEAR); Urine Color Yellow (Yellow); pH Urine 6 (5-7)
[2021-11-15 18:22] LABS: Add Urine Microscopic? YES; Bilirubin Urine Neg (Negative); Blood Urine Neg (Negative); Glucose Urine UA Norm (Normal); Ketones Urine Negative (Negative); Leukocyte Esterase Urine Negative (Negative); Nitrate Urine Negative (Negative); Protein Urine 1+ (Negative); Urobilinogen Urine 1 mg/dL (Negative)
[2021-11-15 18:23] LABS: Add Urine Culture? No; Bacteria Urine TRACE /hpf
--- NOTE | 2021-11-15 18:48 | PM.CONSULT ---
Providers/Reason For Consult Consulting Physician/Specialty*: Hospitalist Reason for Consult*: Comfort measure Primary Care Provider: Debra Monet DO History of Present Illness History of Present Illness I been asked by the ER physician to evaluate the patient She has been intubated, sedated, central line has been placed, CT head remarkable for extensive subarachnoid hemorrhage, CT abdomen pelvis consistent with ischemic colitis, renal infarct, groundglass infiltrate bilaterally found on chest imaging By the time I evaluate the patient She was on Levophed, intubated and sedated, heart rate in 50s, ER staff tried for at least 2 hours to get in touch with the family, front end ui developer even tried social media to track family members however unsuccessful Patient is very unstable to be transferred & we do not have a neurosurgeon at [facility], Felipa Winslow is a 66 year old female who was found obtunded in the field. When EMS found her, she was intubated, she was shocked for V. fib rhythm, by the time she arrived in the ER pulse was found, CODE BLUE was not called, she was hypotensive, central line was placed by Dr. Hardy. Covid PCR negative. Patient is anemic hemoglobin 7.6, severe metabolic acidosis lactic acid 11.7 with hypocalcemia. Review of Systems General: Reports: ROS unobtainable due to endotracheal tube Medications/Allergies Home Medications Medication Instructions Recorded Confirmed Last Taken Type acetaminophen 500 mg tablet 500 - 1,000 mg PO PRN tab 05/14/20 11/11/21 09/22/21 History melatonin 5 mg capsule 5 mg PO BEDTIME PRN cap 05/14/20 11/11/21 09/21/21 History diphenhydramine HCl 25 mg capsule 25 mg PO PRN 12/21/20 11/11/21 09/22/21 History (Benadryl) multivitamin 1 tab PO DAILY 03/08/21 11/11/21 09/22/21 History Fast form ulnar gutter splint #1 ea 03/16/21 11/11/21 Unknown Rx metoprolol tartrate 50 mg tablet 50 mg PO BID@1000,2200 #60 tab 05/24/21 11/11/21 09/22/21 Rx cetirizine 10 mg tablet (Zyrtec) 10 mg PO DAILY@1000 #90 tab 10/04/21 11/11/21 Unknown Rx albuterol sulfate 90 mcg/actuation See Rx Instructions .ROUTE 10/26/21 11/11/21 Unknown Rx aerosol inhaler (Ventolin HFA) .COMPLEX #18 each buspirone 15 mg tablet 15 mg PO BID #60 tab 10/26/21 11/11/21 Unknown Rx citalopram 20 mg tablet See Rx Instructions .ROUTE 10/26/21 11/11/21 Unknown Rx .COMPLEX #90 tab cyclobenzaprine 10 mg tablet See Rx Instructions .ROUTE 10/26/21 11/11/21 Unknown Rx .COMPLEX #90 tab doxycycline hyclate 100 mg capsule 100 mg PO BID #20 cap 10/26/21 11/11/21 Unknown Rx fluticasone propionate 50 1 spray INTRANASAL DAILY #16 gm 10/26/21 11/11/21 Unknown Rx mcg/actuation nasal spray,suspension (Flonase Allergy Relief) gabapentin 600 mg tablet See Rx Instructions .ROUTE 10/26/21 11/11/21 Unknown Rx .COMPLEX 30 Days #90 tab lisinopril 10 mg tablet 10 mg PO DAILY 90 Days #90 tab 10/26/21 11/11/21 Unknown Rx lurasidone 40 mg tablet (Latuda) See Rx Instructions .ROUTE 10/26/21 11/11/21 Unknown Rx .COMPLEX 90 Days #90 tab montelukast 10 mg tablet 10 mg PO DAILY@1000 90 Days #90 tab 10/26/21 11/11/21 Unknown Rx pantoprazole 40 mg tablet,delayed See Rx Instructions .ROUTE 10/26/21 11/11/21 Unknown Rx release .COMPLEX 90 Days #90 tab promethazine 25 mg tablet See Rx Instructions .ROUTE 10/26/21 11/11/21 Unknown Rx .COMPLEX 90 Days #90 tab cyanocobalamin (vitamin B-12) See Rx Instructions .ROUTE 10/28/21 11/11/21 Unknown Rx 1,000 mcg/mL injection solution .COMPLEX #1 ml hydrocodone 5 mg-acetaminophen 325 1 - 2 tab PO .Q4-6H PRN 7 Days #40 11/15/21 Unknown Rx mg tablet tab Allergies Allergy/AdvReac Type Severity Reaction Status Date / Time codeine Allergy Unknown Verified 11/11/21 12:56 Penicillins Allergy Unknown Verified 11/11/21 12:56 sulfacetamide AdvReac nausea Verified 11/11/21 12:56 Current Medications Generic Name Dose Route Start Last Admin Trade Name Freq PRN Reason Stop Dose Admin Sodium Chloride 1,000 mls @ 0 mls/hr 11/15/21 15:15 11/15/21 18:08 Sodium Chloride 0.9% IV Infused .Q0M CANDICE Infusion KVO Sodium Bicarbonate 150 meq/ 1,150 mls @ 150 mls/hr 11/15/21 16:39 11/15/21 18:05 Dextrose IV 11/16/21 00:18 Not Given .Q7H40M ONE PFSH Acute PFSH: Medical History (Updated 11/15/21 @ 18:58 by Sepideh Cohen MD) Chronic nausea COPD (chronic obstructive pulmonary disease) Not in exacerbation GERD (gastroesophageal reflux disease) History of TMJ disorder Left sided surgery Intervertebral disc disorder with radiculopathy of lumbosacral region Joint instability Spinal stenosis, lumbar region with neurogenic claudication Spondylolisthesis of lumbar region Surgical History History of cervical spinal surgery 1996 C5-C6 fusion [place], [place] History of hysterectomy History of mitral valve replacement with bioprosthetic valve History of open heart surgery Open heart surgery with valve replacement, performed in [place], [place] by Dr. Taylor, 2015 History of tonsillectomy History of tubal ligation Family History Other Alzheimer's disease No pertinent family history Social History Smoking and tobacco status: current every day smoker cigarettes Packs smoked per day: 1 Alcohol intake: never Lives independently: No (LIVES WITH BROTHER) Household members: family Marital status: Current occupational status: disabled History of recent travel: No Vitals/I&O/Wt Last Vital Signs Temp 89.5 F L 11/15/21 18:18 Pulse 53 L 11/15/21 18:18 Resp 16 11/15/21 15:19 BP 89/58 11/15/21 18:18 Pulse Ox 97 11/15/21 18:18 11/15/21 11/15/21 11/15/21 06:59 14:59 22:59 Intake Total 1506.5 / 1506.5 Balance 1506.5 / 1506.5 Physical Exam Narrative: EXAM NARRATIVE: Patient is intubated and sedated there is some blood noted in endotracheal tube She has a left-sided central line Heart rate in 50s Systolic blood pressure low 80s She is on ventilator settings 100% FiO2 PEEP 10 Cold extremities I do not see signs of edema Neuro exam limited Distended abdomen, Urinary Catheter Management: Bower: Cath Placed During This Visit: yes Reason for Continuing Indwelling Catheter: Required Immobilization for Trauma or Surgery or Anesthesia Urinary Catheter Date of Insertion: 11/15/21 Urinary Catheter Time of Insertion: 15:48 Data : 11/15/21 15:53 11/15/21 15:53 A&P Assessment and plan (1) Cardiac arrest: Status: Acute Plan Respiratory failure requiring mechanical ventilation status post cardiac arrest Patient was shocked x1 by EMS in the field for V. fib CT head consistent with subarachnoid hemorrhage CT abdomen pelvis consider ischemic bowel, renal infarct Hypotensive Left-sided central line, Levophed running Severe metabolic acidosis Family not responding to the phone calls Patient in cardiogenic shock, massive subarachnoid hemorrhage, multiorgan failure, severe acidosis she carries guarded prognosis, I have been requested by the ER physician to evaluate the patient for comfort measures, I do agree with comfort measures only status for Ms. Winslow Consult Attestations Time Spent in Patient Care: 15mins Coding Level of Care Code Acute Senior Accounting Clerk for [facility] Jacinto Diagnoses Cardiac arrest I46.9
[2021-11-15 18:49] LABS: Adenovirus Not Detected (NOT DETECT); Chlamydia Pneumoniae Not Detected (NOT DETECT); Coronavirus 229E,HKU1,NL63,OC4 Not Detected (NOT DETECT); Human Metapneumovirus Not Detected (NOT DETECT); Human Rhinovirus/Enterovirus Not Detected (NOT DETECT); Influenza A Not Detected (NOT DETECT); Influenza A H1 Not Detected (NOT DETECT); Influenza A H1-2009 Not Detected (NOT DETECT); Influenza A H3 Not Detected (NOT DETECT); Influenza B Not Detected (NOT DETECT); Mycoplasma Pneumoniae Not Detected (NOT DETECT); Parainfluenza Virus Type 1 Not Detected (NOT DETECT); Parainfluenza Virus Type 2 Not Detected (NOT DETECT); Parainfluenza Virus Type 3 Not Detected (NOT DETECT); Parainfluenza Virus Type 4 Not Detected (NOT DETECT); Respiratory Syncytial Virus A Not Detected (NOT DETECT); Respiratory Syncytial Virus B Not Detected (NOT DETECT); SARS-COV-2 Not Detected (NOT DETECT)
[2021-11-15] MEDS: LORazepam 2 mg/mL INJ 1 mL 1 MG IVP (19:06)
[2021-11-15] MEDS: HYDROmorphone 1 mg/mL INJ 1 mL IVP (19:06)
--- NOTE | 2021-11-15 19:34 | PC.NURSE ---
2 units of O neg infused emergently by Zaheer CHAN and Rolando CHAN
--- NOTE | 2021-11-15 19:34 | PC.NURSE ---
Pt terminally extubated by Dr Sosa and RT @ 185 Time of pronounced by Dr Sosa @ 1924 - PEA on monitor
--- NOTE | 2021-11-15 20:46 | PC.NURSE ---
[employer] Well Fishing Tool Technician released body. [facility] requested body be held in morgue until they can contact family. Body placed in morgue at 1999.
--- NOTE | 2021-11-16 11:29 | PC.NURSE ---
Kizzy Winslow called asking about the patient's body being released. Kizzy was not listed on patients PHI consent. Kizzy stated she was with Marv Winslow, patient's brother who is listed on PHI. Marv gave verbal permission over the phone to this nurse and stated that Kizzy was okay to receive information as well. This conversation was witnessed by Camryn Mcdonough covering and lining supervisor. Updated contact information was taken for family and will be relayed to saving sites to contact the family.
--- NOTE | 2021-11-16 15:27 | PC.NURSE ---
at 1620 11/15/21 emergency released blood units [id number] o neg and unit [id number] o neg where started and pressure infused thru large bore IVs, both units transfused at 1635, and lines flushed. blood verified with Zaheer CHAN
--- NOTE | 2021-11-16 17:00 | XRR_ITS ---
PROCEDURE INFORMATION: Exam: XR Chest Exam date and time: 11/16/2021 5:00 PM Age: 66 years old Clinical indication: Other: Hypoxia TECHNIQUE: Imaging protocol: XR of the chest. Views: 1 view. COMPARISON: CR XR chest 1V portable [id number] 11/15/2021 3:13 PM FINDINGS: Tubes, catheters and devices: Endotracheal tube with tip approximately 3.5 cm above the johnie. Nasogastric tube with tip at the GE junction. Recommend advancement. Left internal jugular central venous access device with tip high in the right atrium. Lungs: There are extensive bilateral pulmonary opacities. Pleural spaces: No pleural effusion. No pneumothorax. Heart/Mediastinum: A prosthetic cardiac valve is seen. No gross evidence of pneumomediastinum. Bones/joints: Median sternotomy wires are seen. No gross fracture.
--- NOTE | 2021-11-16 22:32 | PC.NURSE ---
Pt released from [facility] and [facility]. Per report - Narayan Albert Stacker And Sorter Operator requested body to be released to [facility] due to unavailability of the Next of Kin at that time.
== END 2021-11-15 20:52 | disposition expired ==
PROVIDERS: Emergency Medicine; Family Medicine; Emergency Provider Emergency Medicine; PCP Family Medicine
DX: I46.9 Cardiac arrest, cause unspecified (principal); I60.9 Nontraumatic subarachnoid hemorrhage, unspecified; K55.9 Vascular disorder of intestine, unspecified; E87.0 Hyperosmolality and hypernatremia; E83.51 Hypocalcemia; D64.9 Anemia, unspecified; J44.9 Chronic obstructive pulmonary disease, unspecified; F17.210 Nicotine dependence, cigarettes, uncomplicated; Z20.822 Contact with and (suspected) exposure to COVID-19
CPT/HCPCS: 31500; 36556; 36600; 51702; 70450; 71045; 71275; 74018; 74177; 80051; 80053; 81001; 82009; 82330; 82803; 82805; 83605; 83690; 84484; 85025; 86900; 86920; 87635; 93005; 94002; 94799; 96365; 96375; 99291; 99292; C1751; J0171; J1170; J2060; J7030; J7050; P9016; Q9967